=== PATIENT | female | born 1940 ===

== ENCOUNTER 2020-04-20 11:52 | Outpatient (REF) | payer MEDICARE, SELFPAY ==
[2020-04-20 13:00] LABS: MANUAL DIFF FLAG NO
[2020-04-20 13:04] LABS: Basophils Absolute Auto 0.1 X10*3/uL (0.0-0.2); Basophils Percent Auto 0.6 % (0-2); Eosinophils Absolute Auto 0.4 X10*3/uL (0.0-0.4); Eosinophils Percent Auto 4.9 % (0-4); Hematocrit 40.9 % (37-47); Hemoglobin 13.3 g/dl (12.0-16.0); Imm Gran Abs Auto 0.03 X10*3/uL (0.00-0.03); Imm Gran Pct Auto 0.3 % (0.0-0.4); Lymphocytes Absolute Auto 2.7 X10*3/uL (1.2-4.9); Lymphocytes Percent Auto 31.1 % (20-40); Mean Corpuscular HGB Conc 32.5 g/dl (31.0-35.0); Mean Corpuscular Hemoglobin 30.2 pg (27.0-33.0); Mean Corpuscular Volume 92.7 fL (80-98); Mean Platelet Volume 10.4 fL (9.4-12.3); Monocytes Absolute Auto 0.9 X10*3/uL (0.1-1.2); Monocytes Percent Auto 10.7 % (2-11); Neutrophils Absolute Auto 4.6 X10*3/uL (2.0-8.3); Neutrophils Percent Auto 52.4 % (45-73); Platelet Count 304 X10*3/uL (160-400); Red Blood Count 4.41 X10*6/uL (4.20-5.50); Red Cell Distribution Width 13.2 % (11.0-16.0); White Blood Count 8.7 X10*3/uL (4.8-10.8)
[2020-04-20 13:24] LABS: Glucose Urine UA NEG (NEG); Leukocyte Esterase Urine 2+ (NEG); Nitrite Urine NEG (NEG); Urine Blood TRACE (NEG); Urine Ketones NEG (NEG); Urine Protein NEG (NEG-TRACE)
[2020-04-20 13:34] LABS: Appearance Urine CLOUDY; Color Urine YELLOW
[2020-04-20 13:38] LABS: Calcium 9.3 mg/dL (8.4-10.2)
[2020-04-20 13:47] LABS: Alanine Aminotransferase 10 U/L (0-31); Alkaline Phosphatase 112 U/L (39-117); Anion Gap 12 (12-20); Aspartate Amino Transferase 18 U/L (5-31); Bilirubin Total 0.5 mg/dL (0.0-1.0); Blood Urea Nitrogen 10 mg/dL (9-16); Calcium 9.1 mg/dL (8.4-10.2); Carbon Dioxide 28 mmol/L (22-29); Chloride 100 mmol/L (96-108); Cholesterol 169 mg/dL; Estimated Glomerular Filt Rate > 60; Glucose Random 87 mg/dL (60-115); HDL Cholesterol 61 mg/dL; LDL Cholesterol Calculated 88 mg/dl; Potassium 4.3 mmol/l (3.3-5.1); Sodium 136 mmol/L (135-145); Total Protein 6.8 g/dL (6.5-8.0); Triglycerides 104 mg/dL
[2020-04-20 13:54] LABS: Thyroid Stimulating Hormone 0.78 mIU/mL (0.32-4.0); Vitamin D 25-OH Total 11.9 ng/mL (>30)
[2020-04-20 14:03] LABS: Bacteria Urine 2+ /LPF; RBC Urine 0-2 /HPF (0); Squamous Epithelial Cell Urine 2+ /LPF
[2020-04-21 07:58] LABS: Syphilis Screen Nonreactive (Nonreactive)
[2020-04-21 17:52] LABS: Calcium (PTHI) 10.1 mg/dL (8.6-10.4); PTHI 59 pg/mL (14-64)
== END 2020-04-20 11:53 | disposition home or self-care (01) ==
LOC: HO.LAB 11:52
PROVIDERS: Absent Provider Internal Medicine Endocrinology, Diabetes & Metabolism; PCP Internal Medicine; Visit Provider Internal Medicine
DX: R41.0 Disorientation, unspecified (principal); R73.02 Impaired glucose tolerance (oral); I10 Essential (primary) hypertension; E78.00 Pure hypercholesterolemia, unspecified; E83.52 Hypercalcemia
CPT/HCPCS: 36415; 80053; 80061; 81001; 82040; 82306; 82310; 83970; 84443; 85025; 86780

== ENCOUNTER 2020-04-21 11:20 | Outpatient (REF) | payer MEDICARE, SELFPAY ==
--- NOTE | 2020-04-21 11:20 | CT_ITS ---
EXAMINATION: CT HEAD WITHOUT CONTRAST CLINICAL INFORMATION: Disorientation. COMPARISON: None TECHNIQUE: Contiguous axial imaging was performed from the skull base to vertex without intravenous administration of contrast. This CT examination was performed using dose optimization techniques as appropriate, variously including the following: *Automated exposure control *Adjustment of mA and/or kV according to patient size (this includes techniques or standardized protocols for targeted exams where dose is matched to indication/reason for exam; i.e. extremities or head) *Use of iterative reconstruction technique DLP: 692 mGy-cm FINDINGS: There is no evidence of acute intracranial hemorrhage or territorial infarction. There is an extracranial right parietal calcified lesion along the inner table measuring 1.1 x 0.8 cm, most likely a calcified meningioma. There is a subtle 5 mm hypodense lesion along the inferior margin of the falx on axial image 18/2 and coronal image 69/7 likely small meningioma. No abnormal mass effect or midline shift is seen. Harley to white matter differentiation is well preserved. No extra-axial fluid collections are identified. The ventricles are normal in size. There is no abnormal attenuation within the brain parenchyma. The osseous structures and soft tissues are normal. The mastoid air cells and visualized portions of the paranasal sinuses are well aerated. CT/CT head/brain wo con IMPRESSION: No acute intracranial process seen. There is a right extra-axial parietal calcified meningioma and likely a small meningioma along the inferior margin of midline falx.
== END 2020-04-21 11:21 | disposition home or self-care (01) ==
LOC: HO.CT 11:20
PROVIDERS: PCP Internal Medicine; Visit Provider Internal Medicine
DX: R41.0 Disorientation, unspecified (principal)
CPT/HCPCS: 70450

== ENCOUNTER 2020-05-11 09:55 | Outpatient (REF) | payer MEDICARE, SELFPAY ==
--- NOTE | 2020-05-11 10:00 | MM_ITS ---
EXAMINATION: BONE DENSITOMETRY CLINICAL INDICATION: Hyperparathyroidism. COMPARISON: Previous BD dated 05/07/2018 and baseline BD dated 07/03/2008 (lumbar spine and left hip). This is the patient's baseline examination for the left forearm radius 33%. TECHNIQUE: Using a [employer] DXA System (software version: 13.1) manufactured by [employer], dual-energy x-ray absorptiometry was performed of the lumbar spine, left hip, and left forearm radius 33%. The images are of good technical quality. Summary results are attached. FINDINGS: AP SPINE L1-L4 (excluding L3): The data of L1-L4 has been changed to exclude the L3 vertebral body, because degenerative changes at this level may cause overestimation of lumbar spine density. Current: BMD 1.020 g/cm2, Z-score 0.3, T-score -1.2, osteopenia, 8.5% decrease from previous, 9.7% decrease from baseline (<5% change is not significant). Prior: BMD 1.115 g/cm2. Baseline: BMD 1.130 g/cm2. LEFT FEMUR, NECK: Current: BMD 0.808 g/cm2, Z-score 0.4, T-score -1.7, osteopenia. Prior: BMD 0.783 g/cm2. Baseline: BMD 0.866 g/cm2. LEFT FEMUR, TOTAL: Current: BMD 0.868 g/cm2, Z-score 0.8, T-score -1.1, osteopenia, 1.2% increase from previous, 14.7% decrease from baseline (<5% change is not significant). Prior: BMD 0.858 g/cm2. Baseline: BMD 1.017 g/cm2. LEFT FOREARM RADIUS 33%: BMD 0.600 g/cm2, Z-score -0.3, T-score -3.2, osteoporosis. Prior: Not previously measured. IDENTIFIED RISK FACTORS: Hyperparathyroidism, low calcium intake, thiazide, menopause. HISTORY OF FRACTURE: None listed. MEDICATIONS: Calcium supplements or multivitamin, vitamin D. MM/XR DEXA appendicular skeleton IMPRESSION: 1. DIAGNOSIS: Osteoporosis based on the lowest T-score value of -3.2 in the forearm radius 33% applying World Health Organization criteria. 2. 10-YEAR FRACTURE RISK PREDICTION, FRAX: Major osteoporotic fracture (clinical spine, forearm, hip or shoulder) 8.0%. Hip fracture 2.1%. 3. Treatment Recommendations: NOF guidelines recommend consideration for treatment in postmenopausal women and men age 50 and older presenting with the following: -A hip or vertebral (clinical or morphometric) fracture. -T-score less than or equal to -2.5 at the femoral neck or spine after appropriate evaluation to exclude secondary causes. -Low bone mass at the hip or spine and a 10-year fracture probability by FRAX of greater than or equal to 3% for hip fracture or greater than or equal to 20% for major osteoporotic fracture based on the [place] adapted WHO algorithm. 4. Other Recommendations: All treatment decisions require clinical judgment and consideration of individual patient factors, including patient preferences, comorbidities, previous drug use, risk factors not captured in the FRAX model (e.g. frailty, falls, vitamin D deficiency, increased bone turnover, interval significant decline in bone density) and possible under or overestimation of fracture risk by FRAX. Additional medical evaluation for secondary cause of low bone mineral density may be appropriate. FUTURE SCAN RECOMMENDATION: People with diagnosed cases of osteoporosis or at high risk for fracture should have regular bone mineral density tests. For patients eligible for Medicare, routine testing is allowed once every 2 years. The testing frequency can be increased to one year for patients who have rapidly progressing disease, those who are receiving or discontinuing medical therapy to restore bone mass, or have additional risk factors.
== END 2020-05-11 09:56 | disposition home or self-care (01) ==
LOC: HO.MAMMO 09:55
PROVIDERS: PCP Internal Medicine; Visit Provider Internal Medicine Endocrinology, Diabetes & Metabolism
DX: Z13.820 Encounter for screening for osteoporosis (principal); Z78.0 Asymptomatic menopausal state; M85.89 Other specified disorders of bone density and structure, multiple sites; E21.3 Hyperparathyroidism, unspecified; Z79.899 Other long term (current) drug therapy
CPT/HCPCS: 77081

== ENCOUNTER → 2020-05-17 12:58 | Outpatient (BNVA) | payer MEDICARE, SELFPAY | PROVIDERS: PCP Internal Medicine; Referring Provider Internal Medicine; Visit Provider Internal Medicine Endocrinology, Diabetes & Metabolism | DX: E21.3 Hyperparathyroidism, unspecified (principal); E04.2 Nontoxic multinodular goiter; M18.0 Bilateral primary osteoarthritis of first carpometacarpal joints; E55.9 Vitamin D deficiency, unspecified | CPT/HCPCS: 99212 ==

== ENCOUNTER 2020-06-28 12:02 | Outpatient (REF) | payer MEDICARE, SELFPAY | END 2020-06-28 12:03 | disposition home or self-care (01) | LOC: HO.LAB 12:02 | PROVIDERS: PCP Internal Medicine; Visit Provider Psychiatry & Neurology Neurology | DX: Z13.89 Encounter for screening for other disorder (principal) ==

== ENCOUNTER → 2020-08-16 08:47 | Outpatient (BNVA) | payer MEDICARE, SELFPAY | PROVIDERS: PCP Internal Medicine; Visit Provider Internal Medicine Endocrinology, Diabetes & Metabolism | DX: Z13.89 Encounter for screening for other disorder (principal) | CPT/HCPCS: 99212 ==

== ENCOUNTER 2020-08-16 09:07 | Outpatient (REF) | payer MEDICARE, SELFPAY ==
[2020-08-16 11:28] LABS: Calcium 9.4 mg/dL (8.4-10.2)
[2020-08-16 11:58] LABS: Free T4 (Free Thyroxine) 1.06 ng/dL (0.71-1.85); Thyroid Stimulating Hormone 0.83 uIU/mL (0.32-4.0); Vitamin D 25-OH Total 60.8 ng/mL (>30)
[2020-08-18 10:36] LABS: Calcium (PTHI) 9.7 mg/dL (8.6-10.4); PTHI 58 pg/mL (14-64)
[2020-08-20 20:41] LABS: N-Telopeptide 32 (see note); NTXCreaRU 182 mg/dL (20-275)
== END 2020-08-16 09:08 | disposition home or self-care (01) ==
LOC: HO.10HDL 09:07
PROVIDERS: Visit Provider Internal Medicine Endocrinology, Diabetes & Metabolism
DX: M81.0 Age-related osteoporosis without current pathological fracture (principal); E21.3 Hyperparathyroidism, unspecified; E55.9 Vitamin D deficiency, unspecified; E04.2 Nontoxic multinodular goiter; Z79.899 Other long term (current) drug therapy
CPT/HCPCS: 36415; 82040; 82306; 82310; 82523; 83970; 84439; 84443; 99212

== ENCOUNTER 2020-11-03 15:38 | Outpatient (REF) | payer MEDICARE, SELFPAY ==
--- NOTE | ~2020-11-03 | US_ITS ---
EXAMINATION: US VENOUS ULTRASOUND WITH DOPPLER LOWER EXTREMITY, BILATERAL CLINICAL INFORMATION: Swelling. COMPARISON: Previous right lower extremity venous ultrasound May 2013. TECHNIQUE: Ultrasound of the deep veins is performed from the hip to the calf with compression sonography and color and pulse Doppler assessment. Spectral analysis with color-flow imaging is performed. FINDINGS: There is normal venous compression and respiratory variation and augmented flow bilaterally. The visualized common femoral vein, superficial femoral vein, profunda femoral vein, popliteal vein, and the trifurcation region shows no evidence of deep venous thrombosis bilaterally. There is no significant popliteal fossa cyst. US/US venous duplex LE LT IMPRESSION: No DVT demonstrated in the bilateral lower extremities.
== END 2020-11-03 15:39 | disposition home or self-care (01) ==
LOC: HO.US 15:38
PROVIDERS: PCP Internal Medicine; Visit Provider Internal Medicine
DX: I82.402 Acute embolism and thrombosis of unspecified deep veins of left lower extremity (principal)
CPT/HCPCS: 93971

== ENCOUNTER 2020-12-23 15:01 | Outpatient (REF) | payer MEDICARE, SELFPAY ==
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
[2020-12-23 16:08] LABS: Hematocrit 40.9 % (37-47); Hemoglobin 13.5 g/dl (12.0-16.0); Mean Corpuscular Hemoglobin 30.6 pg (27.0-33.0); Mean Corpuscular Volume 92.7 fL (80-98); Mean Platelet Volume 10.3 fL (9.4-12.3); Platelet Count 292 X10*3/uL (160-400); Red Blood Count 4.41 X10*6/uL (4.20-5.50); Red Cell Distribution Width 13.4 % (11.0-16.0); White Blood Count 8.6 X10*3/uL (4.8-10.8)
[2020-12-23 16:19] LABS: Glucose Urine UA NEG (NEG); Leukocyte Esterase Urine 1+ (NEG); Nitrite Urine NEG (NEG); UACC Culture Trigger YES; Urine Blood NEG (NEG); Urine Ketones NEG (NEG); Urine Protein NEG (NEG-TRACE)
[2020-12-23 16:23] LABS: Appearance Urine CLEAR; Color Urine YELLOW
[2020-12-23 16:24] LABS: Anion Gap 12 (12-20); Blood Urea Nitrogen 15 mg/dL (9-16); Calcium 10.2 mg/dL (8.4-10.2); Carbon Dioxide 29 mmol/L (22-29); Chloride 100 mmol/L (96-108); Estimated Glomerular Filt Rate > 60; Glucose Random 112 mg/dL (60-115); Potassium 4.5 mmol/L (3.3-5.1); Sodium 136 mmol/L (135-145)
[2020-12-23 16:33] LABS: Bacteria Urine TRACE /LPF; Mucus Urine TRACE /LPF; RBC Urine 0-2 /HPF (0); Squamous Epithelial Cell Urine TRACE /LPF
== END 2020-12-23 15:02 | disposition home or self-care (01) ==
LOC: HO.XRAY 15:01
PROVIDERS: PCP Internal Medicine; Visit Provider Physician Assistant
DX: R07.81 Pleurodynia (principal); R10.9 Unspecified abdominal pain; R60.0 Localized edema; R30.0 Dysuria; I10 Essential (primary) hypertension
CPT/HCPCS: 36415; 71101; 74018; 80048; 81001; 81003; 85027; 87086

== ENCOUNTER → 2021-03-21 15:30 | Outpatient (BNVA) | payer MEDICARE, SELFPAY | PROVIDERS: PCP Internal Medicine; Visit Provider Hospitalist | DX: J98.4 Other disorders of lung (principal); J45.909 Unspecified asthma, uncomplicated; R93.89 Abnormal findings on diagnostic imaging of other specified body structures; R07.81 Pleurodynia; S22.31XD Fracture of one rib, right side, subsequent encounter for fracture with routine healing | CPT/HCPCS: 99202 ==

== ENCOUNTER 2021-09-22 09:50 | Outpatient (REF) | payer MEDICARE, SELFPAY ==
--- NOTE | ~2021-09-22 | CT_ITS ---
EXAMINATION: CT CHEST WITHOUT CONTRAST CLINICAL INFORMATION: Abnormal lung findings. Pleurodynia. COMPARISON: 12/23/2020 TECHNIQUE: Multidetector volumetric CT imaging of the chest was done. Axial MIP volume rendering provided. Sagittal and coronal reformatted images were obtained. This CT examination was performed using dose optimization techniques as appropriate, variously including the following: *Automated exposure control *Adjustment of mA and/or kV according to patient size (this includes techniques or standardized protocols for targeted exams where dose is matched to indication/reason for exam; i.e. extremities or head) *Use of iterative reconstruction technique DLP: 301 mGy-cm FINDINGS: SENIOR CYBER SECURITY ANALYST: Calcifications are seen in the soft tissues overlying the chest bilaterally. Right upper cartilage surgical clips. LUNGS: The central airways are patent. There is no dense consolidation. Mild elevation of the left hemidiaphragm. Minimal subpleural reticulation favors atelectasis. No pneumothorax. There is a left lower lobe 0.3 cm pulmonary nodule on series 5 image 190. Calcified granulomata are present bilaterally. MEDIASTINUM: Normal heart size. Coronary artery calcifications. No pericardial effusion. No mediastinal lymphadenopathy. PLEURA: There is no pleural effusion. No pleural mass or thickening. AXILLA: No lymphadenopathy. UPPER ABDOMEN: Cholecystectomy. No acute abnormality. OSSEOUS STRUCTURES: Degenerative changes of the spine. No acute or suspicious osseous abnormality. Radiopaque foreign bodies are seen associated with chronic right-sided rib fractures. Multiple radiopaque densities are seen in the back. Radiopaque densities are embedded in both scapulae. CT/CT chest wo con IMPRESSION: Chronic changes with multiple radiopaque foreign bodies present. This is associated with chronic healed fractures. Multiple calcified granulomata. 0.3 cm left lower lobe pulmonary nodule noted. According to the UPDATED 2017 Fleischner Society recommendations, the advised follow-up imaging for solid nodules < 6 mm is: LOW RISK PATIENT: No routine follow-up. HIGH RISK PATIENT: Optional CT at 12 months. Fleischner guidelines were followed.
--- NOTE | 2021-09-22 12:14 | ECG_ITS ---
Test Reason : R06.00 Blood Pressure : / mmHG Vent. Rate : 057 BPM Atrial Rate : 057 BPM P-R Int : 158 ms QRS Dur : 094 ms QT Int : 424 ms P-R-T Axes : 011 039 023 degrees QTc Int : 412 ms Sinus bradycardia Otherwise normal ECG When compared with ECG of 21-JUN-2019 19:38, No significant change was found Referred By: Bjorn Lay Electronically Signed By:JULIO CESAR SALGUERO MD
== END 2021-09-22 09:51 | disposition home or self-care (01) ==
LOC: HO.CT 09:50
PROVIDERS: PCP Internal Medicine; Visit Provider Hospitalist
DX: R93.89 Abnormal findings on diagnostic imaging of other specified body structures (principal); R06.00 Dyspnea, unspecified; R07.81 Pleurodynia; J98.4 Other disorders of lung; J45.20 Mild intermittent asthma, uncomplicated
CPT/HCPCS: 71250; 93005; 99212

== ENCOUNTER 2022-04-15 09:18 | Outpatient (REF) | payer MEDICARE, SELFPAY ==
[2022-04-15 09:42] LABS: MANUAL DIFF FLAG NO
[2022-04-15 10:38] LABS: Basophils Absolute Auto 0.1 X10*3/uL (0.0-0.2); Basophils Percent Auto 0.6 % (0-2); Eosinophils Absolute Auto 0.4 X10*3/uL (0.0-0.4); Eosinophils Percent Auto 4.7 % (0-4); Hematocrit 43.9 % (37.0-47.0); Hemoglobin 14.3 g/dl (12.0-16.0); Imm Gran Abs Auto 0.02 X10*3/uL (0.00-0.03); Imm Gran Pct Auto 0.2 % (0.0-0.4); Lymphocytes Absolute Auto 2.2 X10*3/uL (1.2-4.9); Lymphocytes Percent Auto 24.9 % (20-40); Mean Corpuscular HGB Conc 32.6 g/dl (31.0-35.0); Mean Corpuscular Hemoglobin 29.4 pg (27.0-33.0); Mean Corpuscular Volume 90.1 fL (80.0-98.0); Mean Platelet Volume 10.8 fL (9.4-12.3); Monocytes Absolute Auto 0.7 X10*3/uL (0.1-1.2); Monocytes Percent Auto 8.1 % (2-11); Neutrophils Absolute Auto 5.3 x10*3/uL (2.0-8.3); Neutrophils Percent Auto 61.5 % (45-73); Platelet Count 313 X10*3/uL (160-400); Red Blood Count 4.87 X10*6/uL (4.20-5.50); Red Cell Distribution Width 13.2 % (11.0-16.0); White Blood Count 8.7 X10*3/uL (4.8-10.8)
[2022-04-15 10:44] LABS: Estimated Average Glucose 114 mg/dL; Hemoglobin A1c % 5.6 %
[2022-04-15 11:07] LABS: Alanine Aminotransferase 9 U/L (0-31); Albumin Level 4.3 g/dL (3.5-5.0); Alkaline Phosphatase 86 U/L (39-117); Anion Gap 18 (12-20); Aspartate Amino Transferase 15 U/L (5-31); Bilirubin Total 0.9 mg/dL (0.0-1.0); Blood Urea Nitrogen 13 mg/dL (9-16); Calcium 10.5 mg/dL (8.4-10.2); Carbon Dioxide 26 mmol/L (22-29); Chloride 98 mmol/L (96-108); Cholesterol 195 mg/dL; Estimated Glomerular Filt Rate > 60; Glucose Random 102 mg/dL (60-115); HDL Cholesterol 57 mg/dL; LDL Cholesterol Calculated 119 mg/dl; Potassium 4.1 mmol/L (3.3-5.1); Sodium 138 mmol/L (135-145); Total Protein 7.2 g/dL (6.5-8.0); Triglycerides 95 mg/dL
[2022-04-15 11:23] LABS: Uric Acid 5.4 mg/dL (2.4-5.7)
[2022-04-15 11:29] LABS: Free T4 (Free Thyroxine) 0.99 ng/dL (0.71-1.85); Thyroid Stimulating Hormone 0.77 uIU/mL (0.32-4.0); Vitamin D 25-OH Total 92.2 ng/mL (>30)
[2022-04-15 11:39] LABS: Folate 12.1 ng/mL (> or = 4.0); Vitamin B12 429 pg/mL (200-900)
[2022-04-18 11:42] LABS: Calcium (PTHI) 10.6 mg/dL (8.6-10.4); PTHI 60 pg/mL (16-77)
== END 2022-04-15 09:19 | disposition home or self-care (01) ==
LOC: HO.LAB 09:18
PROVIDERS: PCP Internal Medicine; Visit Provider Internal Medicine
DX: I10 Essential (primary) hypertension (principal); E21.3 Hyperparathyroidism, unspecified; R73.02 Impaired glucose tolerance (oral); E78.00 Pure hypercholesterolemia, unspecified; M81.0 Age-related osteoporosis without current pathological fracture; E56.9 Vitamin deficiency, unspecified
CPT/HCPCS: 36415; 80053; 80061; 82306; 82607; 82746; 83036; 83970; 84439; 84443; 84550; 85025

== ENCOUNTER 2022-05-16 13:51 | Outpatient (REF) | payer MEDICARE, SELFPAY ==
--- NOTE | ~2022-05-16 | MM_ITS ---
EXAMINATION: MM SCREENING DIGITAL BREAST TOMOSYNTHESIS, BILATERAL CLINICAL INFORMATION: Screening. Asymptomatic. COMPARISON: Mammography: 07/14/2019, 07/10/2018, 06/20/2017 TECHNIQUE: Digital breast tomosynthesis is performed in both the craniocaudal and mediolateral oblique views along with computer-aided detection (CAD). Synthesized 2D images are generated from the tomosynthesis. FINDINGS: There are scattered areas of fibroglandular density (ACR BI-RADS breast composition Category b). There are no significant masses, abnormal calcifications, or other abnormalities. Dermal lesion overlies upper outer right breast, marked with dermal marker. There are scattered bilateral vascular calcifications. The axilla are unremarkable. No significant changes. MM/MM tomosynthesis screening BI IMPRESSION: No mammographic evidence of malignancy. ASSESSMENT: BI-RADS 2: Benign RECOMMENDATION: Routine annual mammography screening. This patient's information was entered into a reminder system with a target due date for their next mammogram.
--- NOTE | ~2022-05-16 | MM_ITS ---
EXAMINATION: BONE DENSITOMETRY CLINICAL INDICATION: Age-related osteoporosis without current pathological fracture. COMPARISON: Previous BD dated 05/11/2020 and baseline BD dated 07/03/2008. TECHNIQUE: Using a [employer] DXA System (software version: 13.1) manufactured by [employer], dual-energy x-ray absorptiometry was performed of the lumbar spine and left hip. The images are of good technical quality. Summary results are attached. FINDINGS: AP SPINE L1-L4 (excluding L3): The data of L1-L4 has been changed to exclude the L3 vertebral body, because degenerative changes at this level may cause overestimation of lumbar spine density. Current: BMD 1.090 g/cm2, Z-score 0.9, T-score -0.7, normal, 6.9% increase from previous, 3.5% decrease from baseline (<5% change is not significant). Prior: BMD 1.020 g/cm2. Baseline: BMD 1.130 g/cm2. LEFT FEMUR, NECK: Current: BMD 0.810 g/cm2, Z-score 0.5, T-score -1.6, osteopenia. Prior: BMD 0.808 g/cm2. Baseline: BMD 0.866 g/cm2. LEFT FEMUR, TOTAL: Current: BMD 0.887 g/cm2, Z-score 1.0, T-score -1.0, normal, 2.2% increase from previous, 12.8% decrease from baseline (<5% change is not significant). Prior: BMD 0.868 g/cm2. Baseline: BMD 1.017 g/cm2. IDENTIFIED RISK FACTORS: Osteoporosis, dementia, history of fracture (adult), thiazide, menopause. HISTORY OF FRACTURE: Wrist. MEDICATIONS: Bisphosphonates. MM/XR DEXA axial skeleton IMPRESSION: 1. DIAGNOSIS: Osteopenia based on the lowest T-score value of -1.6 in the femoral neck applying World Health Organization criteria. 2. 10-YEAR FRACTURE RISK PREDICTION, FRAX: Not performed in this patient on estrogen or bone building treatments. 3. Treatment Recommendations: NOF guidelines recommend consideration for treatment in postmenopausal women and men age 50 and older presenting with the following: -A hip or vertebral (clinical or morphometric) fracture. -T-score less than or equal to -2.5 at the femoral neck or spine after appropriate evaluation to exclude secondary causes. -Low bone mass at the hip or spine and a 10-year fracture probability by FRAX of greater than or equal to 3% for hip fracture or greater than or equal to 20% for major osteoporotic fracture based on the [place] adapted WHO algorithm. 4. Other Recommendations: All treatment decisions require clinical judgment and consideration of individual patient factors, including patient preferences, comorbidities, previous drug use, risk factors not captured in the FRAX model (e.g. frailty, falls, vitamin D deficiency, increased bone turnover, interval significant decline in bone density) and possible under or overestimation of fracture risk by FRAX. Additional medical evaluation for secondary cause of low bone mineral density may be appropriate. FUTURE SCAN RECOMMENDATION: People with diagnosed cases of osteoporosis or at high risk for fracture should have regular bone mineral density tests. For patients eligible for Medicare, routine testing is allowed once every 2 years. The testing frequency can be increased to one year for patients who have rapidly progressing disease, those who are receiving or discontinuing medical therapy to restore bone mass, or have additional risk factors.
== END 2022-05-16 13:52 | disposition home or self-care (01) ==
LOC: HO.MAMMO 13:51
PROVIDERS: PCP Internal Medicine; Visit Provider Internal Medicine
DX: Z12.31 Encounter for screening mammogram for malignant neoplasm of breast (principal); M81.0 Age-related osteoporosis without current pathological fracture
CPT/HCPCS: 77063; 77067; 77080

== ENCOUNTER 2022-07-12 15:54 | Outpatient (REF) | payer MEDICARE, SELFPAY ==
--- NOTE | ~2022-07-12 | XR_ITS ---
EXAMINATION: XR CHEST CLINICAL INFORMATION: Covid 19 COMPARISON: 12/23/2020 TECHNIQUE: 2 views of the chest were obtained. FINDINGS: Radiopaque densities in both axillary regions, unchanged. The lungs are well expanded. Mild blunting at the right costophrenic angle appears chronic. No consolidation. No effusion or edema. No pneumothorax. The cardiomediastinal silhouette is within normal limits. Degenerative changes throughout the spine. Upper abdominal surgical clips. XR/XR chest 2V IMPRESSION: No acute pulmonary finding. Chronic blunting of the right costophrenic angle.
== END 2022-07-12 15:55 | disposition home or self-care (01) ==
LOC: HO.XRAY 15:54
PROVIDERS: PCP Internal Medicine; Visit Provider Internal Medicine
DX: U07.1 COVID-19 (principal)
CPT/HCPCS: 71046

== ENCOUNTER 2022-09-14 13:01 | Outpatient (REF) | payer MEDICARE, SELFPAY ==
--- NOTE | ~2022-09-14 | CT_ITS ---
EXAMINATION: CT CHEST WITHOUT CONTRAST CLINICAL INFORMATION: Abnormal lung findings. Follow up. COMPARISON: CT chest 09/23/2021. TECHNIQUE: Multidetector volumetric CT imaging of the chest was done. Axial MIP volume rendering provided. Sagittal and coronal reformatted images were obtained. This CT examination was performed using dose optimization techniques as appropriate, variously including the following: *Automated exposure control *Adjustment of mA and/or kV according to patient size (this includes techniques or standardized protocols for targeted exams where dose is matched to indication/reason for exam; i.e. extremities or head) *Use of iterative reconstruction technique DLP: 301 mGy-cm FINDINGS: CERNER ANALYST: Well-expanded lungs with multiple radiopaque metallic foreign bodies along the posterior chest wall. LUNGS: The lungs are well-expanded without acute pneumonic process. There are punctate calcifications throughout both lungs. There is subpleural 5 mm thickening right lower lobe, stable. Reticular stranding is seen in the right upper lobe, likely atelectasis, similar to previous study. A 3 mm nodule left lower lobe axial image 276/8 is stable. There are new subpleural nodular densities seen in posterior right lower lobe. The largest nodule measures 1 cm on axial image 301/8. MEDIASTINUM: The thyroid lobes are symmetric and normal. The central trachea and the bronchi are widely patent. The heart size and the great vessels are normal caliber. No pericardial effusion seen. No abnormal sized mediastinal or hilar lymph nodes seen. CORONARY ARTERY CALCIFICATION: Mild coronary artery calcifications are present. PLEURA: There is no pleural effusion. No pleural mass or thickening. AXILLA: Small shotty lymph nodes are present bilaterally. There are multiple radiopaque metallic foreign bodies along the posterior chest wall. UPPER ABDOMEN: Visualized liver, spleen, pancreas, and bilateral adrenal glands are unremarkable. The gallbladder has been surgically removed. OSSEOUS STRUCTURES: No visible acute fractures or dislocation seen. There is mild spondylosis mid and lower dorsal spine. There are chronic right upper rib fractures likely related previous injury. CT/CT chest wo IV con IMPRESSION: Several new subpleural nodules right lower lobe, largest measuring 1 cm. No pleural effusion seen. Stable 3 mm nodule left lower lobe. Recommend 3-6 month follow up. Fleischner guidelines were followed.
== END 2022-09-14 13:02 | disposition home or self-care (01) ==
LOC: HO.CT 13:01
PROVIDERS: Visit Provider Hospitalist
DX: R91.8 Other nonspecific abnormal finding of lung field (principal)
CPT/HCPCS: 71250

== ENCOUNTER → 2022-11-09 09:42 | Outpatient (BNVA) | payer MEDICARE, SELFPAY | PROVIDERS: PCP Internal Medicine; Visit Provider Hospitalist ==

== ENCOUNTER 2022-11-09 12:51 | Outpatient (REF) | payer MEDICARE, SELFPAY ==
--- NOTE | 2022-11-09 13:45 | PFT_ITS ---
Forced vital capacity 92%, FEV1 90%. FEV1/FVC ratio is 71. [id number] is 81% and MVV 77%. Following bronchodilator therapy, there is a small, but significant improvement in FVC by 17% and [id number] by 25%. Normal lung volumes. The patient was not able to perform any adequate maneuvers for lung volumes or for DLCO. CONCLUSION: This spirometry findings are actually within normal range. However, some improvement in FVC and [id number] after bronchodilator therapy indicates that the patient may have some bronchospastic component. Clinical correlation is recommended. MD CLAUS Schmidt/CHARMAINE / [id number]
== END 2022-11-09 12:52 | disposition home or self-care (01) ==
LOC: HO.RESP 12:51
PROVIDERS: PCP Internal Medicine; Visit Provider Hospitalist
DX: R06.00 Dyspnea, unspecified (principal)
CPT/HCPCS: 94010; 99212

== ENCOUNTER 2022-11-21 10:14 | Outpatient (REF) | payer MEDICARE, SELFPAY ==
--- NOTE | ~2022-11-21 | PE_ITS ---
EXAMINATION: Fluorine-18 FDG PET/CT Scan CLINICAL INDICATION: Initial treatment management. New subpleural lung nodules at right lower lobe, the largest measuring [address] cm seen on recent [address] of the chest done on 09/14/2022. PROCEDURE: 63 minutes following the intravenous administration of 15.2 mCi of fluorine 18 FDG, images from the base of the skull to the mid thighs were obtained using a combined PET/CT scanner with CT scan based attenuation correction. No intravenous contrast was administered. Transverse, coronal, sagittal, and volume reconstruction projections were obtained. The patient's blood glucose as determined by a finger stick, was 110 mg/dl immediately prior to injection. The radiotracer was injected intravenously through right antecubital superficial vein, without any complications. Total CT exam dose-length product 671.75 mGy-cm * These CT images were obtained using dose optimization techniques as appropriate, variously including the following: Automated exposure control * Adjustment of mA and/or kV according to patient size (this includes techniques or standardized protocols for targeted exams where dose is matched to indication/reason for exam; i.e. extremities or head) * Use of iterative reconstruction technique COMPARISON: CT of the chest done on 09/14/2022. FINDINGS: NECK AND VISUALIZED HEAD: No FDG avid disease. THORAX: Subcentimeter right upper lobar lung nodule seen inferolaterally shows mild FDG avidity with SUV max of 1.6 (89/267). Sub-5 mm calcified nodule seen within the right upper lobe posteriorly at the level of the aortopulmonary window is not FDG avid. Pleural-based thickening associated with possible calcification and possibly old underlying rib fracture along the right upper lobe posterolaterally hemithorax is not FDG avid (73/267). Previously documented subpleural lung nodules at right lower lobe of the lung are not well-visualized and do not show FDG avidity in this region. There are no FDG avid mediastinal, hilar, axillary or internal mammary lymphadenopathy or pleural or pericardial effusion. ABDOMEN AND PELVIS: No FDG avid liver, splenic or adrenal disease. The gallbladder is surgically absent. The biliary tree is decompressed. No FDG avid pancreatic disease. Cortical renal cyst is noted at the inferior anterior cortex of the right kidney otherwise, both kidneys appear unremarkable. Bowel loops are decompressed. Small sliding hiatal hernia is noted. No FDG avid retroperitoneal, mesenteric, pelvic and/or groin lymphadenopathy. MUSCULOSKELETAL: Mild FDG avidity is noted overlying the left femoral head within the soft tissues, likely represent periarticular inflammatory changes. Small focal indeterminate FDG avidity without any underlying CT detectable abnormality is noted at L3 vertebral body to the left of the midline anteriorly with SUV max of 4.3 (137/267). VASCULAR: Calcific atherosclerotic disease of the aorta and its branches including coronary artery calcifications are noted. No evidence of aneurysm. SUV max OF MEDIASTINAL BLOOD POOL: 3.0 SUV max OF LIVER: 3.4 PET/PET CT fusion skull to thigh IMPRESSION: 1. The index millimeter left subpleural lung nodules with the largest measuring 1.0 cm seen on recent CT of the chest done on 09/14/2022 at right lower lobe of the lung posteromedially are not optimally visualized and do not show any FDG avidity in this region. Follow-up dedicated CT scan of the chest imaging to document resolution is recommended. 2. Subcentimeter right upper lobar lung nodule seen inferolaterally however shows mild FDG avidity with SUV max of 1.6. Given the small size of the nodule, having mild FDG avidity is considered significant. 3. No FDG avid mediastinal or hilar lymphadenopathy or pleural or pericardial effusion or FDG avid adrenal or liver or splenic disease. 4. Mild FDG avidity overlying the left femoral head within the soft tissues likely represent periarticular inflammatory changes. 5. Indeterminate mild FDG avidity within the L3 vertebral body to the left of the midline with SUV max of 4.3, without any CT correlate, not optimally characterized. Follow-up MRI with and without intravenous contrast may be considered for further clarification, if clinically appropriate. 6. Atherosclerotic coronary arterial calcific disease.
== END 2022-11-21 10:15 | disposition home or self-care (01) ==
LOC: HO.PET 10:14
PROVIDERS: PCP Internal Medicine; Visit Provider Hospitalist
DX: Z13.89 Encounter for screening for other disorder (principal)

== ENCOUNTER → 2022-12-26 15:11 | Outpatient (BNVA) | payer MEDICARE, SELFPAY | PROVIDERS: PCP Internal Medicine; Visit Provider Hospitalist | DX: J45.20 Mild intermittent asthma, uncomplicated (principal); R06.00 Dyspnea, unspecified; J98.4 Other disorders of lung; R91.8 Other nonspecific abnormal finding of lung field | CPT/HCPCS: 99212 ==

== ENCOUNTER 2022-12-26 15:25 | Outpatient (AMB) | payer MEDICARE, SELFPAY ==
[2022-12-26 15:08] VITALS: PULSE 64; BMI 36.4
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
== END 2022-12-26 15:32 | disposition home or self-care (01) ==
PROVIDERS: PCP Internal Medicine; Visit Provider Hospitalist
DX: R06.00 Dyspnea, unspecified (principal); J45.20 Mild intermittent asthma, uncomplicated; J98.4 Other disorders of lung; R91.8 Other nonspecific abnormal finding of lung field
CPT/HCPCS: 99214

== ENCOUNTER 2023-01-08 14:44 | Outpatient (AMB) | payer MEDICARE, SELFPAY ==
[2023-01-08 14:45] VITALS: BP 124/70; PULSE 65; O2SAT 98; BMI 36.8
--- NOTE | 2023-01-08 14:45 | MHC.PC.OV ---
Vital Signs 01/08/23 14:45 Height 4 ft 11 in Weight 182 lb 2 oz BMI 36.8 BP 124/70 Blood Pressure Location Lt brachial Position Sitting Pulse 65 Pulse Source Pulse Oximeter Pulse Oximetry (%) 98 Oxygen Delivery Method Room Air Intake Visit Reasons: HTN, hypercholesterol [employer] Integrator Required: No Accompanied by: Self / Same As Patient Allergies pollen extracts Allergy (Mild, Verified 01/08/23 14:46) Sneezing amlodipine Allergy (Unknown, Verified 01/08/23 14:46) Unknown house dust Allergy (Unknown, Verified 01/08/23 14:46) Unknown losartan Allergy (Unknown, Verified 01/08/23 14:46) Unknown prednisone Adverse Reaction (Intermediate, Verified 01/08/23 14:46) swelling LE Medication List - Last Reconciled 01/08/23 by Elliott Howell MD alendronate 70 mg PO QWEEK 90 days cholecalciferol (vitamin D3) 1,250 mcg PO QWEEK 90 days clotrimazole 1% 1 appl topical BID 4 weeks compress.stocking,knee,reg,lrg As directed donepezil 5 mg PO BEDTIME hydrochlorothiazide 25 mg PO QAM 30 days meloxicam 7.5 mg PO DAILY PRN pravastatin 20 mg PO DAILY umeclidinium-vilanterol 62.5-25 mcg/actuation (Anoro Ellipta) 1 inh inhalation DAILY Tobacco use date assessed: 01/08/23 Fall risk assessment: No Falls in past year Last assessed Fall Risk: 01/08/23 Dental Screening Dental Screen Date: 01/08/23 Did you have a dental visit in the last 12 months?: No Did you have a dental problem in the last 6 months where you did not have access to dental care?: No Was dental information given to patient?: No HPI HTN, hypercholesterol HPI Details 82-year-old obese female with cognitive impairment hypertension hypercholesterolemia last seen in August 2022. Patient had some pulmonary nodules and had a CT scan done. Bone density is up-to-date. Mammograms up-to-date. Patient follows up with Pulmonary patient follows up with Pulmonary having bilateral interstitial changes along with bronchitis and bronchiectasis. 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 Patient had a PET scan done under pulmonary The index millimeter left subpleural lung nodules with the largest measuring 1.0 cm seen on recent CT of the chest done on 09/14/2022 at right lower lobe of the lung posteromedially are not optimally visualized and do not show any FDG avidity in this region. Follow-up dedicated CT scan of the chest imaging to document resolution is recommended. 2. Subcentimeter right upper lobar lung nodule seen inferolaterally however shows mild FDG avidity with SUV max of 1.6. Given the small size of the nodule, having mild FDG avidity is considered significant. 3. No FDG avid mediastinal or hilar lymphadenopathy or pleural or pericardial effusion or FDG avid adrenal or liver or splenic disease. 4. Mild FDG avidity overlying the left femoral head within the soft tissues likely represent periarticular inflammatory changes. 5. Indeterminate mild FDG avidity within the L3 vertebral body to the left of the midline with SUV max of 4.3, without any CT correlate, not optimally characterized. Follow-up MRI with and without intravenous contrast may be considered for further clarification, if clinically appropriate. 6. Atherosclerotic coronary arterial calcific disease. MRI has been requested but has not heard anything from schedules. Patient has multiple elevated pigmented rashes on the forehead on right leg on right chest and would like to have dermatology to check. Meanwhile has some pruritic rash on the antecubital area and also in the groin. Otherwise no other complaints [facility] Medical History (Updated 01/08/23 @ 15:20 by Elliott Howell MD) Asthma Confusion Dyspnea Hypercholesterolemia Hyperparathyroidism Hypertension Impaired glucose tolerance Lower extremity edema Meningioma Non-toxic multinodular goiter Obesity (BMI 30-39.9) Osteoporosis Periorbital cellulitis of left eye Pulmonary nodules Pulmonary scarring Rib pain on right side Right flank pain Swelling of lower leg Thyroid nodule UTI (urinary tract infection) Surgical History History of cholecystectomy History of thyroid surgery Family History Father CVD (cardiovascular disease) Myocardial infarction Mother Diabetes Vaginal cancer Sister Diabetes Son In good health Daughter In good health Daughter In good health Social History Housing: Apartment Alcohol intake: never Patient Tobacco Use Status: Never used Tobacco e-Cigarette/Vaping Use: Never Used Second Hand Smoke Exposure: No service: No Current occupational status: retired Cognitive needs: No Hearing needs: No Vision needs: Yes (reading glasses) Questionnaire PHQ-9 Over the last 2 weeks, how often have you been bothered by any of the following problems? 1. Little interest or pleasure in doing things: not at all 2. Feeling down, depressed, or hopeless: not at all 3. Trouble falling or staying asleep, or sleeping too much: not at all 4. Feeling tired or having little energy: not at all 5. Poor appetite or overeating: not at all 6. Feeling bad about yourself - or that you are a failure or have let yourself or your family down: not at all 7. Trouble concentrating on things, such as reading the newspaper or watching television: not at all 8. Moving or speaking so slowly that other people could have noticed. Or the opposite - being so fidgety or restless that you have been moving around a lot more than usual: not at all 9. Thoughts that you would be better off or of hurting yourself in some way: not at all Total score: 0 Depression Screening Interpretation: Negative Source: Developed by Drs. Reed Park, Gifty Youngblood, Emre Vickers and colleagues, with an educational grace from [employer]. Thrive Questionnaire Date Thrive assessed: 01/08/23 I am a: Patient What is your living situation today?: I have a steady place to live Within the past 12 months, did the food you bought not last and you didn't have the money to get more?: Never true Within the past 12 months, did you worry whether your food would run out before you got money to buy more?: Never true Do you have trouble paying for medicines?: No Do you have trouble getting transportation to medical appointments?: No Do you have trouble paying your heating and electricity bill?: No Do you have trouble taking care of your child, family member or friend?: No Do you have trouble with day-to-day activities such as bathing, preparing meals, shopping, managing finances, etc.?: No Are you currently unemployed and looking for a job?: No Are you interested in more education?: No Please select the resources that you would like help with: None Currently or been in a relationship where the following occur: no concerns reported AUDIT C Alcohol Use Questionnaire (AUDIT-C) 1. How often do you have a drink containing alcohol?: Never 3. How often do you have six or more drinks on one occasion?: Never Total Score: 0 LISANDRO-7 AMB Questionnaire LISANDRO-7 Date LISANDRO - 7 assessed: 01/08/23 Feeling nervous, anxious, or on edge: 0 = Not at all Not being able to stop or control worryin = Not at all Worrying too much about different things: 0 = Not at all Trouble relaxin = Not at all Being so restless that it is hard to sit still: 0 = Not at all Becoming easily annoyed or irritable: 0 = Not at all Feeling afraid as if something awful might happen: 0 = Not at all Total LISANDRO-7 score (0-4 normal; 5-9 mild; 10-14 moderate; 15-21 severe): 0 Source: Developed by Drs. Reed Park, Gifty Youngblood, Emre Vickers and colleagues, with an educational grace from [employer]. Physical exam (Primary Care) Vital Signs: Last Vital Signs Pulse 65 01/08/23 14:45 BP 124/70 01/08/23 14:45 Pulse Ox 98 01/08/23 14:45 Oxygen Delivery Method Room Air 01/08/23 14:45 Care Plan Goal for BP management: Forehead has 1 cm elevated pigmented rash, right breast has 2 cm pigmented elevated rash, right leg anterior has the 1 cm elevated pigmented rash BMI result Body Mass Index 36.8 Tobacco/Smoking Status: Tobacco use Status Tobacco use date assessed 01/08/23 01/08/23 14:52 Patient Tobacco Use Status Never used Tobacco 01/08/23 14:52 e-Cigarette/Vaping Use Never Used 01/08/23 14:52 PHQ-9: PHQ-9 Score PHQ-9: Total score 0 01/08/23 14:52 Depression Screening Interpretation: Negative Thrive Assessment: Date of Thrive Assessment Date Thrive assessed 01/08/23 01/08/23 14:52 Currently or been in a relationship where the following occur: no concerns reported Const General: alert; No acute distress Eyes Conjunctivae: conjunctivae normal Resp Auscultation: clear to auscultation bilaterally Cardio Rate: regular rate Rhythm: regular rhythm GI Inspection: Yes normal to inspection Extrem General: Yes normal to inspection and No edema Assessment and Plan Assessment & Plan (1) Lesion of lumbar spine: Comment: December 2022 Indeterminate mild FDG avidity within the L3 vertebral body to the left of the midline with SUV max of 4.3, without any CT correlate, not optimally characterized. Follow-up MRI with and without intravenous contrast may be considered for further clarification, if clinically Code(s): M89.9 - Disorder of bone, unspecified Plan: Advised MRI (2) Pulmonary nodules: Comment: New 1 cm nodules in the RLL Code(s): R91.8 - Other nonspecific abnormal finding of lung field Plan: Patient continues to follow-up with Pulmonary (3) Impaired glucose tolerance: Code(s): R73.02 - Impaired glucose tolerance (oral) Plan: Decrease the amount of carbohydrate intake, pasta, bread, rice and potatoes are all sugar and that is aside from all the sweet stuff, remember that fruits are good but they are Sweet also. (4) Hypertension: Code(s): I10 - Essential (primary) hypertension Qualifiers: Hypertension type: essential hypertension Qualified Code(s): I10 - Essential (primary) hypertension Plan: Continue with blood pressure medication. Decrease salt intake and exercise continue with hydrochlorothiazide (5) Asthma: Comment: PFTs with mild COPD Code(s): J45.909 - Unspecified asthma, uncomplicated Qualifiers: Asthma severity: mild Asthma persistence: intermittent Asthma complication type: uncomplicated Qualified Code(s): J45.20 - Mild intermittent asthma, uncomplicated Plan: Continue with inhalers states has not used - advised to use (6) Obesity (BMI 30-39.9): Code(s): E66.9 - Obesity, unspecified Plan: Diet and exercise (7) Hypercholesterolemia: Code(s): E78.00 - Pure hypercholesterolemia, unspecified Plan: Avoid fried foods, chicken skin, eggs, butter margarine, pastries and meat. Be it pork or beef they have a lot of cholesterol continue with pravastatin 20 mg once a day (8) Multiple pigmented nevi: Code(s): D22.9 - Melanocytic nevi, unspecified (9) Tinea cruris: Code(s): B35.6 - Tinea cruris Orders: Orders Complete Blood Count Auto Diff Today R73.02 - Impaired glucose tolerance (oral) Comprehensive Met. Panel Today R73.02 - Impaired glucose tolerance (oral) Free T4 (Free Thyroxine) Today R73.02 - Impaired glucose tolerance (oral) Thyroid Stimulating Hormone Today R73.02 - Impaired glucose tolerance (oral) Vitamin B12 and Folate Today R73.02 - Impaired glucose tolerance (oral) Vitamin D 25-OH Total Today R73.02 - Impaired glucose tolerance (oral) Hemoglobin A1c Today R73.02 - Impaired glucose tolerance (oral) Lipid Panel Today E78.00 - Pure hypercholesterolemia, unspecified, R73.02 - Impaired glucose tolerance (oral) Referrals Dermatology Referral D22.9 - Melanocytic nevi, unspecified Medications: New clotrimazole 1% 1 appl topical BID 4 weeks 45 grams 0RF B35.6 - Tinea cruris Changed From meloxicam 7.5 mg PO DAILY 30 tabs 1RF M54.50 - Low back pain, unspecified To meloxicam 7.5 mg PO DAILY PRN M54.50 - Low back pain, unspecified Coding Level of Care Code Est Pt Level 4 (33771) Diagnoses Lesion of lumbar spine M89.9 Pulmonary nodules R91.8 Impaired glucose tolerance R73.02 Hypertension I10 Hypertension type: essential hypertension Asthma J45.20 Asthma severity: mild Asthma persistence: intermittent Asthma complication type: uncomplicated Obesity (BMI 30-39.9) E66.9 Hypercholesterolemia E78.00 Multiple pigmented nevi D22.9 Tinea cruris B35.6
== END 2023-01-08 15:26 | disposition home or self-care (01) ==
PROVIDERS: Visit Provider Internal Medicine
DX: I10 Essential (primary) hypertension (principal); J45.20 Mild intermittent asthma, uncomplicated; Z68.36 Body mass index [BMI] 36.0-36.9, adult; E66.9 Obesity, unspecified; M89.9 Disorder of bone, unspecified; R91.8 Other nonspecific abnormal finding of lung field; R73.02 Impaired glucose tolerance (oral); E78.00 Pure hypercholesterolemia, unspecified; D22.9 Melanocytic nevi, unspecified; B35.6 Tinea cruris
CPT/HCPCS: 99214

== ENCOUNTER 2023-02-21 16:22 | Outpatient (REF) | payer MEDICARE, SELFPAY ==
--- NOTE | ~2023-02-21 | MR_ITS ---
EXAMINATION: MR LUMBAR SPINE WITHOUT AND WITH CONTRAST CLINICAL INFORMATION: Low back pain COMPARISON: Lumbar radiographs 12/13/2015 TECHNIQUE: MRI of the lumbar spine was obtained using routine sequences before and after intravenous administration of 9 mL Gadavist. FINDINGS: Slight levocurvature at the thoracolumbar junction and minimal mid lumbar dextro curvature. Normal lumbar lordosis is preserved. Trace anterolisthesis at L3-L4 and L4-L5. Vertebral body heights are maintained. There is no suspicious enhancing osseous lesion. Multilevel disc desiccation with disc height loss most pronounced and moderate to severe at T12-L1 greater than T11-T12 and L2-L3. Several scattered endplate Schmorl's nodes, type I and II Modic endplate changes with associated endplate enhancement and type I Modic endplate changes most pronounced at T12-L1 and eccentric to the left along the L3 superior endplate. Multilevel anterior osteophytic spurring is seen.There are multilevel degenerative changes on a background of congenital spinal canal stenosis with level by level detail as follows: T11-T12: Annular disc bulge and moderate bilateral facet arthrosis with ligamentum flavum thickening. 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 Moderate bilateral neural foraminal stenosis with mass effect along the exiting T11 nerve roots. T12-L1: Annular disc bulge eccentric to the right with moderate right greater than left facet arthrosis. No spinal canal narrowing. Severe right neural foraminal stenosis with compression of the exiting right T12 nerve root without left neural foraminal stenosis. L1-L2: No spinal canal or neural foraminal stenosis. L2-L3: Disc osteophyte complex eccentric to the right and moderate bilateral facet arthrosis with ligamentum flavum thickening. Moderate spinal canal stenosis. Moderate right neural foraminal stenosis with impingement upon the exiting/extraforaminal right L2 nerve root and mild left neural foraminal stenosis. L3-L4: Annular disc bulge and advanced bilateral facet arthrosis with ligamentum flavum thickening and trace facet joint effusions. Severe spinal canal and subarticular zone stenosis with mass effect along the cauda equina including traversing bilateral L4 nerve roots. Mild to moderate right and moderate left neural foraminal stenosis with impingement upon the exiting left L3 nerve root. L4-L5: Slight posterior disc uncovering, advanced bilateral facet arthrosis and ligamentum flavum thickening. Moderate to severe spinal canal and subarticular zone stenosis with compression of the traversing bilateral L5 nerve roots. Mild left greater than right neural foraminal stenosis with contact on the exiting L4 nerve roots. L5-S1: Advanced bilateral facet arthrosis. No spinal canal stenosis. Moderate and mild right neural foraminal stenosis with contact along the exiting L5 nerve roots. The conus medullaris terminates at the level of L1-L2. The distal spinal cord and cauda equina nerve roots appear normal. No abnormal intramedullary or leptomeningeal enhancement.. No epidural fluid collection, hematoma, or mass. There is mild fatty atrophy of the paraspinal musculature. Simple appearing right renal cysts not requiring further imaging follow-up. The abdominal aorta is of normal contour and caliber. MR/MR lumbar spine wo/w con IMPRESSION: 1. 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 Findings to be called to the ordering clinician by a [facility] Phys[facility] Director Of Student Services. 2. There is also severe L3-L4 and moderate to severe L4-L5 spinal canal stenosis. Varying degrees of neural foraminal stenosis, worst at T12-L1 on the right with compression of the exiting right T12 nerve root and L3-L4 on the left at L3-L4 where there is moderate neural foraminal stenosis and impingement upon the exiting left L3 nerve root.
[2023-02-21] MEDS: gadobutroL 10 ML VIAL 9 ML IVPUSH (18:00)
== END 2023-02-21 16:23 | disposition home or self-care (01) ==
LOC: HO.MRI 16:22
PROVIDERS: PCP Internal Medicine; Visit Provider Internal Medicine
DX: M89.9 Disorder of bone, unspecified (principal)
CPT/HCPCS: 72158; A9585

== ENCOUNTER 2023-03-28 09:02 | Outpatient (AMB) | payer MEDICARE, SELFPAY ==
--- NOTE | 2023-03-28 09:13 | HO.SPINEOV ---
Intake Intake Visit Reasons: spinal stenosis Intake Note: Ms. Falcon is here today c/o low back pain. MRI done @ [facility] [place]. Ammonia Operator Required: Yes Ammonia Operator Name: Daughter Allergies pollen extracts Allergy (Mild, Verified 01/08/23 14:46) Sneezing amlodipine Allergy (Unknown, Verified 01/08/23 14:46) Unknown house dust Allergy (Unknown, Verified 01/08/23 14:46) Unknown losartan Allergy (Unknown, Verified 01/08/23 14:46) Unknown prednisone Adverse Reaction (Intermediate, Verified 01/08/23 14:46) swelling LE Assessment & Plan Assessment & Plan (1) Spinal stenosis, lumbar region without neurogenic claudication: Code(s): M48.061 - Spinal stenosis, lumbar region without neurogenic claudication Plan Dear colleague Thank you for referring Elisa Falcon to the office today with a chief complaint of back pain. HPI: This 82-year-old female is suffering from back pain with walking and standing. The symptoms started in August 2021. She can only stand for short periods of times or walk short distances before she has to sit down. She denies radiation down her legs. No numbness weakness or bowel or urinary problems. She is using meloxicam that helps. She is not interested in surgery. PMH: Asthma, hypertension, anxiety Medications: Atenolol, Seroquel, Xanax, ibuprofen, Advair Social history: Lives alone. Physical Exam: Pleasant female. She is not in agony. She is able to stand from a sitting position without difficulties. Straight leg raise is negative. No neurological deficits from motor sensation reflexes. Radiological Studies: MRI done at [facility] [place] shows T11-T12 spinal stenosis and lumbar stenosis at L3-4 and L4-5. Impression/Plan: This 82-year-old female is suffering from lumbar spinal stenosis without neurogenic claudication. She is not interested in surgery or injections. I advised her to continue meloxicam. She will return to my office if she considers surgery. Thank you for allowing me to participate in your patients care. total time spent was 50 minutes in counseling ,coordination of plan, personal review of imaging, surgical decision making and subsequent plan Gilberto Marina MD, PhD Spine Fellowship Trained Neurosurgeon Director, [facility] Coding Level of Care Code New Pt Level 4 (56929) Diagnoses Spinal stenosis, lumbar region without neurogenic claudication M48.065
== END 2023-03-28 09:49 | disposition home or self-care (01) ==
PROVIDERS: PCP Internal Medicine; Referring Provider Internal Medicine; Visit Provider Neurological Surgery
DX: M48.061 Spinal stenosis, lumbar region without neurogenic claudication (principal)
CPT/HCPCS: 99204

== ENCOUNTER → 2023-03-28 09:02 | Outpatient (BNVA) | payer MEDICARE, SELFPAY | PROVIDERS: PCP Internal Medicine; Referring Provider Internal Medicine; Visit Provider Neurological Surgery ==

== ENCOUNTER 2023-04-17 14:39 | Outpatient (AMB) | payer MEDICARE, SELFPAY ==
--- NOTE | 2023-04-17 14:48 | MHC.PC.OV ---
Vital Signs 04/17/23 15:01 Height 4 ft 11 in Weight 180 lb 8 oz BMI 36.5 BP 134/74 Blood Pressure Location Lt brachial Position Sitting Pulse 58 Pulse Source Pulse Oximeter Pulse Oximetry (%) 97 Oxygen Delivery Method Room Air Intake Visit Reasons: Hypercholesterolemia Intake Note: Patient is here to follow up on hypercholesterolemia. Complaint of right leg pain Preparation Plant Supervisor Required: No Information Interpreted: non-clinical & clinical Drug Safety Scientist: Present Accompanied by: Daughter Allergies pollen extracts Allergy (Mild, Verified 04/17/23 15:00) Sneezing amlodipine Allergy (Unknown, Verified 04/17/23 15:00) Unknown house dust Allergy (Unknown, Verified 04/17/23 15:00) Unknown losartan Allergy (Unknown, Verified 04/17/23 15:00) Unknown prednisone Adverse Reaction (Intermediate, Verified 04/17/23 15:00) swelling LE Medication List - Last Reconciled 04/17/23 by Elliott Howell MD alendronate 70 mg PO QWEEK 90 days cane As directed cholecalciferol (vitamin D3) 1,250 mcg PO QWEEK 90 days clotrimazole 1% 1 appl topical BID 4 weeks compress.stocking,knee,reg,lrg As directed diclofenac sodium 1% (Voltaren Arthritis Pain) 4 grams topical QID donepezil 5 mg PO BEDTIME hydrochlorothiazide 25 mg PO QAM 30 days lidocaine 5% 2 patches topical DAILY nystatin 1 appl topical BID nystatin 1 appl topical BID pravastatin 20 mg PO DAILY [rollator walker with a seat As directed] Shower Chair with back umeclidinium-vilanterol 62.5-25 mcg/actuation (Anoro Ellipta) 1 inh inhalation DAILY Tobacco use date assessed: 04/17/23 Fall risk assessment: No Falls in past year Last assessed Fall Risk: 04/17/23 Dental Screening Dental Screen Date: 04/17/23 Did you have a dental visit in the last 12 months?: Yes Did you have a dental problem in the last 6 months where you did not have access to dental care?: No Was dental information given to patient?: Patient has dentist HPI Hypercholesterolemia HPI Details 82-year-old obese female with a history of hypercholesterolemia asthma hypertension impaired glucose tolerance coming in for follow-up. Last seen in December 2022 noted had to have a lumbar spine lesion and has been advised MRI. 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 Findings to be called to the ordering clinician by a [facility] Physician Analyst Programmer. 2. There is also severe L3-L4 and moderate to severe L4-L5 spinal canal stenosis. Varying degrees of neural foraminal stenosis, worst at T12-L1 on the right with compression of the exiting right T12 nerve root and L3-L4 on the left at L3-L4 where there is moderate neural foraminal stenosis and impingement upon the exiting left L3 nerve root. Patient is here for follow-up. Patient was referred to the neurosurgeon but not interested in surgery [facility] Medical History (Updated 04/17/23 @ 15:23 by Elliott Howell MD) Pulmonary nodules Dyspnea Pulmonary scarring Rib pain on right side Lower extremity edema Right flank pain Swelling of lower leg Non-toxic multinodular goiter Osteoporosis Hyperparathyroidism Meningioma UTI (urinary tract infection) Confusion Impaired glucose tolerance Thyroid nodule Hypertension Asthma Obesity (BMI 30-39.9) Hypercholesterolemia Periorbital cellulitis of left eye Surgical History History of cholecystectomy History of thyroid surgery Family History Father CVD (cardiovascular disease) Myocardial infarction Mother Diabetes Vaginal cancer Sister Diabetes Son In good health Daughter In good health Daughter In good health Social History Housing: Apartment Alcohol intake: never Patient Tobacco Use Status: Never used Tobacco e-Cigarette/Vaping Use: Never Used Second Hand Smoke Exposure: No service: No Current occupational status: retired Cognitive needs: Yes (walker/cane) Hearing needs: No Vision needs: Yes (reading glasses) Questionnaire Thrive Questionnaire Date Thrive assessed: 01/08/23 LISANDRO-7 AMB Questionnaire LISANDRO-7 Date LISANDRO - 7 assessed: 01/08/23 Source: Developed by Drs. Reed Park, Gifty Youngblood, Emre Vickers and colleagues, with an educational grace from [employer]. Physical exam (Primary Care) Vital Signs: Last Vital Signs Pulse 58 04/17/23 15:01 BP 134/74 04/17/23 15:01 Pulse Ox 97 04/17/23 15:01 Oxygen Delivery Method Room Air 04/17/23 15:01 BMI result Body Mass Index 36.5 Tobacco/Smoking Status: Tobacco use Status Tobacco use date assessed 04/17/23 04/17/23 15:08 Patient Tobacco Use Status Never used Tobacco 04/17/23 14:48 e-Cigarette/Vaping Use Never Used 04/17/23 14:48 Exam shows no redness mild tenderness on medial knee area very mild swelling. Thrive Assessment: Date of Thrive Assessment Date Thrive assessed 01/08/23 04/17/23 14:48 Const General: alert; No acute distress Eyes Conjunctivae: conjunctivae normal Resp Auscultation: clear to auscultation bilaterally Cardio Rate: regular rate Rhythm: regular rhythm GI Inspection: Yes normal to inspection Extrem General: Yes normal to inspection and No edema Office Procedures Flu Questionnaire Does the patient have a severe egg allergy?: No Does the patient have severe life threatening allergies?: No Does the patient have a fever or illness today?: No Has the patient ever had Guillain-Glenwood Syndrome?: No Has the patient ever had any past reaction to a flu shot?: No Immunizations flu vacc [id number] 6mos up(PF) 60 mcg(15 mcgx4)/0.5 mL IM syringe Performing Provider: Elliott Howell MD Performing Location: [facility] Administered by: Agnes Menezes CMA on 04/17/23 15:11 Dose Route Admin Location Dispensed Lot Number Expiration Date NDC Head Host/Hostess 0.5 mL IM Left Deltoid 0.5 mL [id number] 12/16/23 [id number] iPrint VIS Given Date VIS Provided VIS Publication Date 04/17/23 Single Vaccine 21 Eligibility Eligibility Date Funding Source Not [facility] Eligible 04/17/23 Private Assessment and Plan Assessment & Plan (1) Lumbar spinal stenosis: Code(s): M48.061 - Spinal stenosis, lumbar region without neurogenic claudication Plan: Patient has met with the neurosurgeon and declined any procedures. (2) Impaired glucose tolerance: Code(s): R73.02 - Impaired glucose tolerance (oral) Plan: Decrease the amount of carbohydrate intake, pasta, bread, rice and potatoes are all sugar and that is aside from all the sweet stuff, remember that fruits are good but they are Sweet also. (3) Hypertension: Code(s): I10 - Essential (primary) hypertension Qualifiers: Hypertension type: essential hypertension Qualified Code(s): I10 - Essential (primary) hypertension Plan: Continue with blood pressure medication. Decrease salt intake and exercise (4) Asthma: Comment: PFTs with mild COPD Code(s): J45.909 - Unspecified asthma, uncomplicated Qualifiers: Asthma severity: mild Asthma persistence: intermittent Asthma complication type: uncomplicated Qualified Code(s): J45.20 - Mild intermittent asthma, uncomplicated Plan: Continue with the inhalers (5) Hypercholesterolemia: Code(s): E78.00 - Pure hypercholesterolemia, unspecified Plan: Avoid fried foods, chicken skin, eggs, butter margarine, pastries and meat. Be it pork or beef they have a lot of cholesterol LDL goal of less than 130 and triglyceride of less than 150 on pravastatin 20 mg once a day patient is reminded about the blood work. (6) Obesity (BMI 30-39.9): Code(s): E66.9 - Obesity, unspecified Plan: Diet and exercise (7) Pes anserine bursitis: Code(s): M70.50 - Other bursitis of knee, unspecified knee Orders: Orders Influenza [id number] Immunization Today Z23 - Encounter for immunization Medications: New lidocaine 5% leave on most painful area for up to 12 hrs 2 patches topical DAILY 60 ea 5RF M48.061 - Spinal stenosis, lumbar region without neurogenic claudication diclofenac sodium 1% (Voltaren Arthritis Pain) apply to single knee, ankle, foot; for foot includes sole/toes/top of foot 4 grams topical QID 100 grams 3RF M70.50 - Other bursitis of knee, unspecified knee Coding Level of Care Code Est Pt Level 4 (13604) Diagnoses Lumbar spinal stenosis M48.061 Impaired glucose tolerance R73.02 Essential hypertension I10 Hypertension type: essential hypertension Mild intermittent asthma without complication J45.20 Asthma severity: mild Asthma persistence: intermittent Asthma complication type: uncomplicated Hypercholesterolemia E78.00 Obesity (BMI 30-39.9) E66.9 Pes anserine bursitis M70.50
[2023-04-17 15:01] VITALS: BP 134/74; PULSE 58; O2SAT 97; BMI 36.5
== END 2023-04-17 16:22 | disposition home or self-care (01) ==
PROVIDERS: PCP Internal Medicine; Visit Provider Internal Medicine
DX: Z23 Encounter for immunization (principal); M48.061 Spinal stenosis, lumbar region without neurogenic claudication; R73.02 Impaired glucose tolerance (oral); I10 Essential (primary) hypertension; J45.20 Mild intermittent asthma, uncomplicated; E78.00 Pure hypercholesterolemia, unspecified; M70.50 Other bursitis of knee, unspecified knee
CPT/HCPCS: 90471; 90686; 99214

== ENCOUNTER 2023-05-04 12:50 | Outpatient (REF) | payer MEDICARE, SELFPAY ==
--- NOTE | ~2023-05-04 | XR_ITS ---
EXAMINATION: XR KNEE, RIGHT CLINICAL INFORMATION: Bursitis. COMPARISON: Radiographs dated 07/12/2018. TECHNIQUE: AP and lateral views of the right knee. FINDINGS: Bony alignment and mineralization are normal. The lateral and medial joint space compartments are well-maintained and show mild peripheral osteophyte formation. There is moderate articular surface irregularity of the lateral femoral condyle. There is marked narrowing of the patellofemoral compartment, with peripheral osteophyte formation. No fracture, dislocation or joint effusion is seen. There is no foreign body. XR/XR knee RT 2V IMPRESSION: 1. There is tricompartment osteoarthritic change of the right knee, most pronounced of the patellofemoral compartment, where it is marked. 2. No right knee fracture, dislocation or joint effusion is seen.
== END 2023-05-04 12:51 | disposition home or self-care (01) ==
LOC: HO.XRAY 12:50
PROVIDERS: PCP Internal Medicine; Visit Provider Internal Medicine
DX: M70.51 Other bursitis of knee, right knee (principal)
CPT/HCPCS: 73560

== ENCOUNTER 2023-05-17 11:22 | Outpatient (AMB) | payer MEDICARE, SELFPAY ==
[2023-05-17 11:26] VITALS: BP 120/50; PULSE 74; O2SAT 97; BMI 36.0
--- NOTE | 2023-05-17 11:26 | A.OFFPC_ITS ---
Vital Signs 3 05/17/23 11:26 Height 4 ft 11 in Weight 178 lb 8 oz BMI 36.0 BP 120/50 L Blood Pressure Location Lt brachial Position Sitting Pulse 74 Pulse Source Pulse Oximeter Pulse Oximetry (%) 97 Oxygen Delivery Method Room Air Intake Visit Reasons: Breast Rash & Skin Tag Intake Note: Pt is here for an ongoing breast rash been going on for over a year. Skin tag getting caught on clothing. Stitch Bonder Machine Operator Helper Required: Yes Stitch Bonder Machine Operator Helper Language: Box Toe Buffer Name: Rae Shah Information Interpreted: non-clinical & clinical Mobile Marketing Manager: Present Accompanied by: Daughter Allergies pollen extracts Allergy (Mild, Verified 05/17/23 11:26) Sneezing amlodipine Allergy (Unknown, Verified 05/17/23 11:26) Unknown house dust Allergy (Unknown, Verified 05/17/23 11:26) Unknown losartan Allergy (Unknown, Verified 05/17/23 11:26) Unknown prednisone Adverse Reaction (Intermediate, Verified 05/17/23 11:26) swelling LE Tobacco use date assessed: 04/17/23 Fall risk assessment: No Falls in past year Last assessed Fall Risk: 05/17/23 Dental Screening Dental Screen Date: 05/17/23 Did you have a dental visit in the last 12 months?: No Did you have a dental problem in the last 6 months where you did not have access to dental care?: No Was dental information given to patient?: No (Dentures ) HPI HPI Comments 2 History of Present Illness0 Details 82-year-old female past medical history significant for hypercholesteremia, asthma, hypertension, impaired glucose tolerance, hyperparathyroidism osteoporosis, lumbar spinal stenosis. Patient Dr. TRUONG presents today for right breast nevi that appears to be increasing in size, becoming raise and patient reports it is itchy. Patient also has firm nodular type skin tag noted to right hartley. States that it bothers her and always gets caught on her clothing and she would like this removed. Patients daughter accompanied her to this appointment for which she reports that patient has upcoming appointment scheduled with Dermatology later this month. Patient daughter advised to follow-up with Dermatology for further evaluation of right breast nevi as well as skin tag removal. [facility] Medical History (Updated 05/18/23 @ 07:42 by GARRISON Voss) Pulmonary nodules Dyspnea Pulmonary scarring Rib pain on right side Lower extremity edema Right flank pain Swelling of lower leg Non-toxic multinodular goiter Osteoporosis Hyperparathyroidism Meningioma UTI (urinary tract infection) Confusion Impaired glucose tolerance Thyroid nodule Hypertension Asthma Obesity (BMI 30-39.9) Hypercholesterolemia Periorbital cellulitis of left eye Surgical History History of cholecystectomy History of thyroid surgery Family History Father CVD (cardiovascular disease) Myocardial infarction Mother Diabetes Vaginal cancer Sister Diabetes Son In good health Daughter In good health Daughter In good health Social History Housing: Apartment Alcohol intake: never Patient Tobacco Use Status: Never used Tobacco e-Cigarette/Vaping Use: Never Used Second Hand Smoke Exposure: No service: No Current occupational status: retired Cognitive needs: Yes (walker/cane) Hearing needs: No Vision needs: Yes (reading glasses) Questionnaire Thrive Questionnaire Date Thrive assessed: 01/08/23 LISADNRO-7 AMB Questionnaire LISANDRO-7 Date LISANDRO - 7 assessed: 01/08/23 Source: Developed by Drs. Reed Park, Gifty Youngblood, Emre Vickers and colleagues, with an educational grace from [employer]. Review of Systems Const Denies chills, Denies fatigue, Denies fever(s) and Denies poor appetite Eyes Denies no additional complaints ENT Reports Normal hearing present Card Denies chest pain, Denies syncope, Denies rapid heart rate and Denies dyspnea Resp Denies cough and Denies dyspnea GI Denies change in stool character, Denies constipation, Denies diarrhea, Denies nausea and Denies vomiting Denies urinary frequency, Denies dysuria and Denies urinary urgency Neuro Details: increase mole to right breast, reports itching skin tag to right hartley Reports Normal hearing present, Denies confusion and Denies syncope Psych Denies confusion Endo Denies fatigue Physical exam (Primary Care) Vital Signs: Last Vital Signs Pulse 74 05/17/23 11:26 BP 120/50 L 05/17/23 11:26 Pulse Ox 97 05/17/23 11:26 Oxygen Delivery Method Room Air 05/17/23 11:26 BMI result Body Mass Index 36.0 Tobacco/Smoking Status: Tobacco use Status Tobacco use date assessed 04/17/23 05/17/23 11:28 Patient Tobacco Use Status Never used Tobacco 05/17/23 11:28 e-Cigarette/Vaping Use Never Used 05/17/23 11:28 Thrive Assessment: Date of Thrive Assessment Date Thrive assessed 01/08/23 05/17/23 11:28 Const General: No confusion Orientation/consciousness: No confusion HENMT Head: Yes normocephalic and Yes atraumatic Eyes Conjunctivae: conjunctivae normal Chest Chest palpation & inspection: normal inspection of the chest Resp Effort & Inspection: normal respiratory effort Auscultation: clear to auscultation bilaterally, no crackles, no rhonchi and no wheezes Cardio Rate: regular rate Rhythm: regular rhythm Heart sounds: S1 normal heart sound present and S2 normal heart sound present GI Inspection: Yes normal to inspection Skin Full body images: 2 1. aprox. 0.5 cm x 0.5cm annular, raised irregular textured Nevi to right breast. 2. Firm raised, skin color, nodular calcified appearing skin tag. Neuro General: No confusion Cranial nerves: Yes Normal hearing present Extrem General: No edema Assessment and Plan Assessment & Plan (1) Multiple pigmented nevi: Code(s): D22.9 - Melanocytic nevi, unspecified Plan: Patient advised to follow-up with Dermatology recall ending multiple pigmented nevi as well as her right breast nevi that appears to be growing in size and is itchy for possible removal or biopsy. (2) Skin tag: Code(s): L91.8 - Other hypertrophic disorders of the skin Plan: Patient advised to keep scheduled appointment with finger lift operator for skin ttag removal. Plan Keep scheduled follow-up with PCP or follow-up sooner if needed Coding Level of Care Code Est Pt Level 3 (21029) Diagnoses Multiple pigmented nevi D22.9 Skin tag L91.8
== END 2023-05-17 12:11 | disposition home or self-care (01) ==
PROVIDERS: PCP Internal Medicine; Visit Provider Nurse Practitioner Family
DX: D22.9 Melanocytic nevi, unspecified (principal); L91.8 Other hypertrophic disorders of the skin
CPT/HCPCS: 99213

== ENCOUNTER 2023-05-25 09:02 | Outpatient (AMB) | payer MEDICARE, SELFPAY ==
--- NOTE | 2023-05-25 09:08 | MHC.OFFVIS ---
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 No hx of injury or trauma. She states that her pain came about 4 months ago. Patient reports that her pain is affecting her daily activates like taking a shower, standing, walking and cleaning. Her pain is focused on top of her knee and it stays in that area. Tried and failed 3+ months of compound cream. Tried and failed 3+ months meloxicam. 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 The patient reports her pain began around 4 months ago, in 01/2023. She states her pain is affecting her daily activities like showering, standing, ambulating, and cleaning. She claims her pain is on the top of her knee and does not radiate. She confirms the use of compound cream and Meloxicam for 3 months with no relief. She reports she has been resting the right knee and this has helped her with some relief. She denies a history of injury or trauma. She is currently ambulating with a walker that was supplied by her daughter. She states the walker has helped some. [facility] Medical History (Updated 05/25/23 @ 09:42 by Francheska Baldwin) Pulmonary nodules Dyspnea Pulmonary scarring Rib pain on right side Lower extremity edema Right flank pain Swelling of lower leg Non-toxic multinodular goiter Osteoporosis Hyperparathyroidism Meningioma UTI (urinary tract infection) Confusion Impaired glucose tolerance Thyroid nodule Hypertension Asthma Obesity (BMI 30-39.9) Hypercholesterolemia Periorbital cellulitis of left eye Surgical History History of cholecystectomy History of thyroid surgery Family History Father CVD (cardiovascular disease) Myocardial infarction Mother Diabetes Vaginal cancer Sister Diabetes Son In good health Daughter In good health Daughter In good health Social History Housing: Apartment Alcohol intake: never Patient Tobacco Use Status: Never used Tobacco e-Cigarette/Vaping Use: Never Used Second Hand Smoke Exposure: No service: No Current occupational status: retired Cognitive needs: Yes (walker/cane) Hearing needs: No Vision needs: Yes (reading glasses) Review of Systems Const All systems reviewed & are unremarkable except as noted in HPI and below Physical Exam Vital Signs: BMI result Body Mass Index 35.9 Const General: cooperative and no acute distress Orientation/consciousness: patient oriented x3 Resp Effort & Inspection: normal respiratory effort and able to speak in complete sentences Cardio Peripheral pulses: Peripheral pulses 2+ throughout Skin General skin exam: no rashes or lesions noted Neuro General: patient oriented x3 Extrem Other: Right knee: Normal to inspection. No ecchymosis, erythema, or joint effusion. No tenderness to palpation to the medial or lateral joint lines. ROM is 0-100 degrees. Crepitus felt with ROM. NVI. Office Procedures Joint Injection/Drain Joint Injection/Drain Primary Site: right knee Prep: site was prepped using aseptic technique, ethochloride spray was applied and injection warnings given Injected: 80 mg of, DepoMedrol, with 8 mL of (2% plain lido ) and in the joint Approach Used: anterolateral Procedure: The patient tolerated the procedure well, but had some pain with the injection and there was some relief with the local anesthesia Coding 64289 - Large joint Procedure code (CPT) selection complete Assessment & Plan Assessment & Plan (1) Osteoarthritis of right knee: Code(s): M17.11 - Unilateral primary osteoarthritis, right knee Qualifiers: Osteoarthritis type: unspecified Qualified Code(s): M17.11 - Unilateral primary osteoarthritis, right knee Plan Ms. Falcon is an 82-year-old female, who is Guyanese speaking, presents in the office today with her daughter who is translating for her, as a new patient for an evaluation of right knee pain. The patient reports her pain began around 4 months ago, in 01/2023. She states her pain is affecting her daily activities like showering, standing, ambulating, and cleaning. She claims her pain is on the top of her knee and does not radiate. She confirms the use of compound cream and Meloxicam for 3 months with no relief. She reports she has been resting the right knee and this has helped her with some relief. She denies a history of injury or trauma. She is currently ambulating with a walker that was supplied by her daughter. She states the walker has helped some. The patient was offered a cortisone injection in the right knee with 80 mg of DepoMedrol. The patient was explained the risk, benefits, and alternatives to receiving this injection. After receiving consent for the injection, the patient had the procedure done while in office today. The patient tolerated the procedure well with no complications. Follow up will be PRN, or sooner if needed. X-rays of the right knee which were obtained while in the office today and were reviewed by me, Sophia Vuong PA-C, revealed severe osteoarthritis. X-rays of the right knee, obtained on 05/04/2023, revealed: 1. There is tricompartment osteoarthritic change of the right knee, most pronounced of the patellofemoral compartment, where it is marked. 2. No right knee fracture, dislocation or joint effusion is seen. Orders: Orders XR knee standing BI Today M25.569 - Pain in unspecified knee XR knee RT 1V Today M25.569 - Pain in unspecified knee Patient Instructions: Scribed for Sophia Vuong PA-C by Francheska Baldwin medical services assistant, on 05/25/2023 at 9:04 am, EST. Coding Level of Care Code New Pt Level 4 (91385) Diagnoses Osteoarthritis of right knee, unspecified osteoarthritis type M17.11 Osteoarthritis type: unspecified CPT Codes Coding - 09095 Large joint: 70355 - Large joint ([id number])
[2023-05-25 09:24] VITALS: BMI 35.9
== END 2023-05-25 10:31 | disposition home or self-care (01) ==
PROVIDERS: PCP Internal Medicine; Visit Provider Physician Assistant
DX: M17.11 Unilateral primary osteoarthritis, right knee (principal)
CPT/HCPCS: 20610; 99204

== ENCOUNTER 2023-05-25 10:59 | Outpatient (REF) | payer MEDICARE, SELFPAY ==
--- NOTE | ~2023-05-25 | XR_ITS ---
EXAMINATION: XR KNEE AP STANDING CLINICAL INFORMATION: Bilateral knee pain COMPARISON: Right knee x-ray on 05/04/2023, left knee x-ray on 02/16/2015 TECHNIQUE: AP bilateral standing view of the knees was obtained. FINDINGS: BONES: Bony structures are intact. Persistent prominent bony spur is seen projecting from the lateral border of right patella. There is no focal bone destruction or periosteal reaction seen. JOINTS: There is persistent marked loss of medial compartment right and left tibiofemoral joint spaces. There could be mild genu varus deformity especially in the left knee. SOFT TISSUE: Soft tissue is normal. No radiopaque foreign body or abnormal air collection is seen. XR/XR knee standing BI IMPRESSION: 1. Persistent advanced bilateral medial compartment right and left tibiofemoral joint degenerative arthritis. 2. There could be mild genu varus deformity especially in the left knee. 3. Unchanged lateral right patellar bony spur.
--- NOTE | ~2023-05-25 | XR_ITS ---
EXAMINATION: RIGHT KNEE X-RAY CLINICAL INFORMATION: Pain COMPARISON: Same day standing AP radiographs of the bilateral knees and right knee x-rays 05/04/2023 TECHNIQUE: Single patellar sunrise view of the right knee. FINDINGS: No patellar fracture. Prominent osteophyte projects over the lateral border of the patella. There is mild narrowing of the patellofemoral joint space. No localized soft tissue swelling. XR/XR knee RT 1V IMPRESSION: Degenerative changes of the right patella without fracture.
== END 2023-05-25 11:00 | disposition home or self-care (01) ==
LOC: HO.HOSX 10:59
PROVIDERS: Visit Provider Physician Assistant
DX: M17.11 Unilateral primary osteoarthritis, right knee (principal)
CPT/HCPCS: 20610; 73560; 73565; 99202; J1040

== ENCOUNTER 2023-06-06 09:59 | Outpatient (REF) | payer MEDICARE, SELFPAY | END 2023-06-06 10:00 | disposition home or self-care (01) | LOC: HO.CT 09:59 | PROVIDERS: PCP Internal Medicine; Visit Provider Hospitalist | DX: R91.8 Other nonspecific abnormal finding of lung field (principal) | CPT/HCPCS: 71250 ==

== ENCOUNTER 2023-07-02 14:28 | Outpatient (AMB) | payer MEDICARE, SELFPAY ==
[2023-07-02 14:36] VITALS: BP 134/60; PULSE 59; O2SAT 98; BMI 38.4
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
== END 2023-07-02 15:13 | disposition home or self-care (01) ==
PROVIDERS: PCP Internal Medicine; Visit Provider Hospitalist
DX: R06.00 Dyspnea, unspecified (principal); J45.20 Mild intermittent asthma, uncomplicated; J98.4 Other disorders of lung; R91.8 Other nonspecific abnormal finding of lung field
CPT/HCPCS: 99214

== ENCOUNTER → 2023-07-02 14:28 | Outpatient (BNVA) | payer MEDICARE, SELFPAY | PROVIDERS: PCP Internal Medicine; Visit Provider Hospitalist | DX: J45.20 Mild intermittent asthma, uncomplicated (principal); J98.4 Other disorders of lung; R06.00 Dyspnea, unspecified; R91.8 Other nonspecific abnormal finding of lung field | CPT/HCPCS: 99212 ==

== ENCOUNTER 2023-07-23 15:27 | Outpatient (AMB) | payer MEDICARE, MEDICAID, SELFPAY ==
[2023-07-23 15:29] VITALS: BP 160/80; PULSE 79; O2SAT 98; BMI 36.1
--- NOTE | 2023-07-23 15:29 | A.OFFPC_ITS ---
Vital Signs 07/23/23 15:29 Height 4 ft 11 in Weight 179 lb BMI 36.1 BP 160/80 H Blood Pressure Location Lt brachial Position Sitting Pulse 79 Pulse Source Pulse Oximeter Pulse Oximetry (%) 98 Oxygen Delivery Method Room Air Intake Visit Reasons: lumbar spinal stenosis, R knee pain Car Pre Cooler Required: Yes Behavioral Health Therapist: Present Allergies pollen extracts Allergy (Mild, Verified 07/23/23 15:30) Sneezing amlodipine Allergy (Unknown, Verified 07/23/23 15:30) Unknown house dust Allergy (Unknown, Verified 07/23/23 15:30) Unknown losartan Allergy (Unknown, Verified 07/23/23 15:30) Unknown prednisone Adverse Reaction (Intermediate, Verified 07/23/23 15:30) swelling LE Medication List - Last Reconciled 07/23/23 by Elliott Howell MD albuterol sulfate 90 mcg/actuation (Ventolin HFA) 2 puffs inhalation Q6H PRN alendronate 70 mg PO QWEEK 90 days cane As directed cholecalciferol (vitamin D3) 1,250 mcg PO QWEEK 90 days clotrimazole 1% 1 appl topical BID 4 weeks compress.stocking,knee,reg,lrg As directed diclofenac sodium 1% (Voltaren Arthritis Pain) 4 grams topical QID donepezil 5 mg PO BEDTIME hydrochlorothiazide 25 mg PO QAM 30 days lidocaine 5% 2 patches topical DAILY nystatin 1 appl topical BID nystatin 1 appl topical BID pravastatin 20 mg PO DAILY [rollator walker with a seat As directed] Shower Chair with back umeclidinium-vilanterol 62.5-25 mcg/actuation (Anoro Ellipta) 1 inh inhalation DAILY Tobacco use date assessed: 07/23/23 Fall risk assessment: No Falls in past year Last assessed Fall Risk: 07/23/23 Dental Screening Dental Screen Date: 07/23/23 Did you have a dental visit in the last 12 months?: Yes Did you have a dental problem in the last 6 months where you did not have access to dental care?: No Was dental information given to patient?: Patient has dentist HPI lumbar spinal stenosis, R knee pain HPI Details 82-year-old obese female with multiple m edical problems impaired glucose tolerance hypertension hypercholesterolemia asthma osteoporosis with hyperparathyroidism lumbar spinal stenosis coming in for follow-up. Last seen in April 2023 and was referred to dermatology. Patient's bone density is up-to-date April 2022 patient follows up with Pulmonary June 2023 PFT done with mild COPD pulmonary nodule stable no additional CT scan needed continue with Anoro and albuterol.. Patient also follows up with orthopedics for her right knee and had injection on the right knee [facility] Medical History (Updated 07/03/23 @ 18:17 by Elliott Howell MD) Pulmonary nodules Dyspnea Pulmonary scarring Rib pain on right side Lower extremity edema Right flank pain Swelling of lower leg Non-toxic multinodular goiter Osteoporosis Hyperparathyroidism Meningioma UTI (urinary tract infection) Confusion Impaired glucose tolerance Thyroid nodule Hypertension Asthma Obesity (BMI 30-39.9) Hypercholesterolemia Periorbital cellulitis of left eye Surgical History History of cholecystectomy History of thyroid surgery Family History Father CVD (cardiovascular disease) Myocardial infarction Mother Diabetes Vaginal cancer Sister Diabetes Son In good health Daughter In good health Daughter In good health Social History Housing: Apartment Alcohol intake: never Patient Tobacco Use Status: Never used Tobacco e-Cigarette/Vaping Use: Never Used Second Hand Smoke Exposure: No service: No Current occupational status: retired Cognitive needs: Yes (walker/cane) Hearing needs: No Vision needs: Yes (reading glasses) Questionnaire PHQ-9 Over the last 2 weeks, how often have you been bothered by any of the following problems? 1. Little interest or pleasure in doing things: not at all 2. Feeling down, depressed, or hopeless: not at all 3. Trouble falling or staying asleep, or sleeping too much: not at all 4. Feeling tired or having little energy: not at all 5. Poor appetite or overeating: not at all 6. Feeling bad about yourself - or that you are a failure or have let yourself or your family down: not at all 7. Trouble concentrating on things, such as reading the newspaper or watching television: not at all 8. Moving or speaking so slowly that other people could have noticed. Or the opposite - being so fidgety or restless that you have been moving around a lot more than usual: not at all 9. Thoughts that you would be better off or of hurting yourself in some way: not at all Total score: 0 Depression Screening Interpretation: Negative Depression Screening Done: Yes Source: Developed by Drs. Reed Park, Gifty Youngblood, Emre Vickers and colleagues, with an educational grace from [employer]. Thrive Questionnaire Date Thrive assessed: 07/23/23 I am a: Patient What is your living situation today?: I have a steady place to live Within the past 12 months, did the food you bought not last and you didn't have the money to get more?: Never true Within the past 12 months, did you worry whether your food would run out before you got money to buy more?: Never true Do you have trouble paying for medicines?: No Do you have trouble getting transportation to medical appointments?: No Do you have trouble paying your heating and electricity bill?: No Do you have trouble taking care of your child, family member or friend?: No Do you have trouble with day-to-day activities such as bathing, preparing meals, shopping, managing finances, etc.?: No Are you currently unemployed and looking for a job?: No Are you interested in more education?: No Please select the resources that you would like help with: None THRIVE Score: 0 AUDIT C Alcohol Use Questionnaire (AUDIT-C) 1. How often do you have a drink containing alcohol?: Never 3. How often do you have six or more drinks on one occasion?: Never Total Score: 0 LISANDRO-7 AMB Questionnaire LISANDRO-7 Date LISANDRO - 7 assessed: 07/23/23 Feeling nervous, anxious, or on edge: 0 = Not at all Not being able to stop or control worryin = Not at all Worrying too much about different things: 0 = Not at all Trouble relaxin = Not at all Being so restless that it is hard to sit still: 0 = Not at all Becoming easily annoyed or irritable: 0 = Not at all Feeling afraid as if something awful might happen: 0 = Not at all Total LISANDRO-7 score (0-4 normal; 5-9 mild; 10-14 moderate; 15-21 severe): 0 Source: Developed by Nikolai Meyeret [employer], Emre Vickers and colleagues, with an educational grace from [employer]. Physical exam (Primary Care) Vital Signs: Last Vital Signs Pulse 79 07/23/23 15:29 BP 160/80 H 07/23/23 15:29 Pulse Ox 98 07/23/23 15:29 Oxygen Delivery Method Room Air 07/23/23 15:29 BMI result Body Mass Index 36.1 Tobacco/Smoking Status: Tobacco use Status Tobacco use date assessed 07/23/23 07/23/23 15:31 Patient Tobacco Use Status Never used Tobacco 07/23/23 15:31 e-Cigarette/Vaping Use Never Used 07/23/23 15:31 PHQ-9: PHQ-9 Score PHQ-9: Total score 0 07/23/23 15:39 Depression Screening Interpretation: Negative Thrive Assessment: Date of Thrive Assessment Date Thrive assessed 07/23/23 07/23/23 15:31 Const General: alert; No acute distress Eyes Conjunctivae: conjunctivae normal Resp Auscultation: clear to auscultation bilaterally Cardio Rate: regular rate Rhythm: regular rhythm GI Inspection: Yes normal to inspection Extrem General: Yes normal to inspection and No edema Assessment and Plan Assessment & Plan (1) Obesity (BMI 30-39.9): Code(s): E66.9 - Obesity, unspecified Plan: Diet and exercise (2) Hypercholesterolemia: Code(s): E78.00 - Pure hypercholesterolemia, unspecified Plan: Avoid fried foods, chicken skin, eggs, butter margarine, pastries and meat. Be it pork or beef they have a lot of cholesterol LDL goal of less than 130 and triglyceride of less than 150. Patient on pravastatin 20 mg once a day will need blood work (3) Asthma: Comment: PFTs with mild COPD Code(s): J45.909 - Unspecified asthma, uncomplicated Qualifiers: Asthma severity: mild Asthma persistence: intermittent Asthma complication type: uncomplicated Qualified Code(s): J45.20 - Mild intermittent asthma, uncomplicated Plan: Patient follows up with Pulmonary and has been given albuterol and Anoro (4) Hypertension: Code(s): I10 - Essential (primary) hypertension Qualifiers: Hypertension type: essential hypertension Qualified Code(s): I10 - Essential (primary) hypertension Plan: Continue with blood pressure medication. Decrease salt intake and exercise takes hydrochlorothiazide 25 mg once a day (5) Impaired glucose tolerance: Code(s): R73.02 - Impaired glucose tolerance (oral) Plan: Decrease the amount of carbohydrate intake, pasta, bread, rice and potatoes are all sugar and that is aside from all the sweet stuff, remember that fruits are good but they are Sweet also. (6) Hyperparathyroidism: Comment: Patient has met with endocrinology and will continue to monitor as this is mild hyperparathyroidism Code(s): E21.3 - Hyperparathyroidism, unspecified Plan: Continue to monitor (7) Lumbar spinal stenosis: Code(s): M48.061 - Spinal stenosis, lumbar region without neurogenic claudication Plan: Keep active (8) Osteoarthritis of right knee: Code(s): M17.11 - Unilateral primary osteoarthritis, right knee Qualifiers: Osteoarthritis type: unspecified Qualified Code(s): M17.11 - Unilateral primary osteoarthritis, right knee Plan: Patient has seen Orthopedics and had injections done. Medications: New albuterol sulfate 90 mcg/actuation (Ventolin HFA) 2 puffs inhalation Q6H PRN 8.5 grams 0RF shortness of breath or wheezing J45.20 - Mild intermittent asthma, uncomplicated Coding Level of Care Code Est Pt Level 4 (94459) Diagnoses Obesity (BMI 30-39.9) E66.9 Hypercholesterolemia E78.00 Mild intermittent asthma without complication J45.20 Asthma severity: mild Asthma persistence: intermittent Asthma complication type: uncomplicated Essential hypertension I10 Hypertension type: essential hypertension Impaired glucose tolerance R73.02 Hyperparathyroidism E21.3 Lumbar spinal stenosis M48.061 Osteoarthritis of right knee, unspecified osteoarthritis type M17.11 Osteoarthritis type: unspecified
== END 2023-07-23 15:59 | disposition home or self-care (01) ==
PROVIDERS: PCP Internal Medicine; Visit Provider Internal Medicine
DX: E21.3 Hyperparathyroidism, unspecified (principal); E66.9 Obesity, unspecified; Z68.36 Body mass index [BMI] 36.0-36.9, adult; E78.00 Pure hypercholesterolemia, unspecified; J45.20 Mild intermittent asthma, uncomplicated; I10 Essential (primary) hypertension; R73.02 Impaired glucose tolerance (oral); M48.061 Spinal stenosis, lumbar region without neurogenic claudication; M17.11 Unilateral primary osteoarthritis, right knee
CPT/HCPCS: 99214

== ENCOUNTER 2023-07-28 09:50 | Outpatient (REF) | payer MEDICARE, SELFPAY ==
[2023-07-28 10:11] LABS: MANUAL DIFF FLAG NO
[2023-07-28 10:35] LABS: Basophils Absolute Auto 0.1 X10*3/uL (0.0-0.2); Basophils Percent Auto 0.6 % (0-2); Eosinophils Absolute Auto 0.5 X10*3/uL (0.0-0.4); Eosinophils Percent Auto 5.7 % (0-4); Hemoglobin 14.2 g/dl (12.0-16.0); Imm Gran Abs Auto 0.04 X10*3/uL (0.00-0.03); Imm Gran Pct Auto 0.5 % (0.0-0.4); Lymphocytes Absolute Auto 2.4 X10*3/uL (1.2-4.9); Lymphocytes Percent Auto 28.3 % (20-40); Mean Corpuscular HGB Conc 34.6 g/dl (31.0-35.0); Mean Corpuscular Hemoglobin 29.8 pg (27.0-33.0); Mean Corpuscular Volume 86.1 fL (80.0-98.0); Mean Platelet Volume 9.8 fL (9.4-12.3); Monocytes Absolute Auto 0.8 X10*3/uL (0.1-1.2); Monocytes Percent Auto 9.2 % (2-11); Neutrophils Absolute Auto 4.6 x10*3/uL (2.0-8.3); Neutrophils Percent Auto 55.7 % (45-73); Platelet Count 340 X10*3/uL (160-400); Red Blood Count 4.76 X10*6/uL (4.20-5.50); Red Cell Distribution Width 13.2 % (11.0-16.0); White Blood Count 8.3 X10*3/uL (4.8-10.8)
[2023-07-28 10:56] LABS: Estimated Average Glucose 108 mg/dL; Hemoglobin A1c % 5.4 % (<6.0)
[2023-07-28 11:17] LABS: Alanine Aminotransferase 11 U/L (0-31); Albumin Level 4.1 g/dL (3.5-5.0); Alkaline Phosphatase 88 U/L (39-117); Anion Gap 14 (12-20); Aspartate Amino Transferase 15 U/L (5-31); Bilirubin Total 0.7 mg/dL (0.0-1.0); Blood Urea Nitrogen 9 mg/dL (9-16); Carbon Dioxide 31 mmol/L (22-29); Chloride 90 mmol/L (96-108); Cholesterol 179 mg/dL (<200); Estimated Glomerular Filt Rate > 60; Glucose Random 107 mg/dL (60-115); HDL Cholesterol 57 mg/dL (>40); LDL Cholesterol Calculated 104 mg/dL (<100); Potassium 3.7 mmol/L (3.3-5.1); Sodium 131 mmol/L (135-145); Total Protein 7.3 g/dL (6.5-8.0); Triglycerides 94 mg/dL (<150)
[2023-07-28 11:35] LABS: Free T4 (Free Thyroxine) 0.98 ng/dL (0.71-1.85); Thyroid Stimulating Hormone 0.63 uIU/mL (0.32-4.0); Vitamin D 25-OH Total 109.1 ng/mL (>30)
[2023-07-28 11:40] LABS: Folate 6.1 ng/mL (> or = 4.0); Vitamin B12 403 pg/mL (200-900)
== END 2023-07-28 09:51 | disposition home or self-care (01) ==
LOC: HO.LAB 09:50
PROVIDERS: PCP Internal Medicine; Visit Provider Internal Medicine
DX: R73.02 Impaired glucose tolerance (oral) (principal); E78.00 Pure hypercholesterolemia, unspecified; M89.9 Disorder of bone, unspecified
CPT/HCPCS: 36415; 80053; 80061; 82306; 82607; 82746; 83036; 84439; 84443; 85025

== ENCOUNTER 2023-10-22 15:41 | Outpatient (AMB) | payer MEDICARE, SELFPAY ==
[2023-10-22 15:44] VITALS: BP 148/68; PULSE 64; O2SAT 97; BMI 37.0
--- NOTE | 2023-10-22 15:44 | A.OFFPC_ITS ---
Vital Signs 10/22/23 15:44 Height 4 ft 11 in Weight 183 lb 0.6 oz BMI 37.0 BP 148/68 H Blood Pressure Location Lt brachial Position Sitting Pulse 64 Pulse Source Pulse Oximeter Pulse Oximetry (%) 97 Oxygen Delivery Method Room Air Intake Visit Reasons: Asthma hypercholesterolemia hypertension Coordinator Of Online Programs Required: No Allergies pollen extracts Allergy (Mild, Verified 10/22/23 15:44) Sneezing amlodipine Allergy (Unknown, Verified 10/22/23 15:44) Unknown house dust Allergy (Unknown, Verified 10/22/23 15:44) Unknown losartan Allergy (Unknown, Verified 10/22/23 15:44) Unknown hydrochlorothiazide Adverse Reaction (Intermediate, Unverified 10/22/23 16:16) hyponatremia lisinopril Adverse Reaction (Intermediate, Unverified 10/22/23 16:12) cough prednisone Adverse Reaction (Intermediate, Verified 10/22/23 15:44) swelling LE Medication List - Last Reconciled 10/22/23 by Elliott Howell MD albuterol sulfate 90 mcg/actuation (Ventolin HFA) 2 puffs inhalation Q6H PRN alendronate 70 mg PO QWEEK 90 days cane As directed cholecalciferol (vitamin D3) 1,250 mcg PO QWEEK 90 days clotrimazole 1% 1 appl topical BID 4 weeks compress.stocking,knee,reg,lrg As directed diclofenac sodium 1% (Voltaren Arthritis Pain) 4 grams topical QID donepezil 5 mg PO BEDTIME lidocaine 5% 2 patches topical DAILY metoprolol succinate ER 25 mg PO DAILY nystatin 1 appl topical BID nystatin 1 appl topical BID pravastatin 20 mg PO DAILY [rollator walker with a seat As directed] Shower Chair with back umeclidinium-vilanterol 62.5-25 mcg/actuation (Anoro Ellipta) 1 inh inhalation DAILY Tobacco use date assessed: 10/22/23 Fall risk assessment: No Falls in past year Last assessed Fall Risk: 10/22/23 Dental Screening Dental Screen Date: 07/23/23 HPI Asthma hypercholesterolemia hypertension HPI Details 83-year-old obese female with hypertensi on hypercholesterolemia asthma impaired glucose tolerance hyperparathyroidism and lumbar spinal stenosis last seen in July 2023. [facility] Medical History (Updated 10/22/23 @ 16:18 by Elliott Howell MD) Pulmonary nodules Dyspnea Pulmonary scarring Rib pain on right side Lower extremity edema Right flank pain Swelling of lower leg Non-toxic multinodular goiter Osteoporosis Hyperparathyroidism Meningioma UTI (urinary tract infection) Confusion Impaired glucose tolerance Thyroid nodule Hypertension Asthma Obesity (BMI 30-39.9) Hypercholesterolemia Periorbital cellulitis of left eye Surgical History History of cholecystectomy History of thyroid surgery Family History Father CVD (cardiovascular disease) Myocardial infarction Mother Diabetes Vaginal cancer Sister Diabetes Son In good health Daughter In good health Daughter In good health Social History Housing: Apartment Alcohol intake: never Patient Tobacco Use Status: Never used Tobacco e-Cigarette/Vaping Use: Never Used Second Hand Smoke Exposure: No service: No Current occupational status: retired Cognitive needs: Yes (walker/cane) Hearing needs: No Vision needs: Yes (reading glasses) Questionnaire Thrive Questionnaire Date Thrive assessed: 10/22/23 I am a: Patient What is your living situation today?: I have a steady place to live Within the past 12 months, did the food you bought not last and you didn't have the money to get more?: Never true Within the past 12 months, did you worry whether your food would run out before you got money to buy more?: Never true Do you have trouble paying for medicines?: No Do you have trouble getting transportation to medical appointments?: No Do you have trouble paying your heating and electricity bill?: No Do you have trouble taking care of your child, family member or friend?: No Do you have trouble with day-to-day activities such as bathing, preparing meals, shopping, managing finances, etc.?: No Are you currently unemployed and looking for a job?: No Are you interested in more education?: No Please select the resources that you would like help with: None THRIVE Score: 0 AUDIT C Alcohol Use Questionnaire (AUDIT-C) 1. How often do you have a drink containing alcohol?: Never 3. How often do you have six or more drinks on one occasion?: Never Total Score: 0 LISANDRO-7 AMB Questionnaire LISANDRO-7 Date LISANDRO - 7 assessed: 07/23/23 Source: Developed by Drs. Reed Park, Gifty Youngblood, Emre Vickers and colleagues, with an educational grace from [email or web address]. Physical exam (Primary Care) Vital Signs: Last Vital Signs Pulse 64 10/22/23 15:44 BP 148/68 H 10/22/23 15:44 Pulse Ox 97 10/22/23 15:44 Oxygen Delivery Method Room Air 10/22/23 15:44 BMI result Body Mass Index 37.0 Tobacco/Smoking Status: Tobacco use Status Tobacco use date assessed 10/22/23 10/22/23 15:45 Patient Tobacco Use Status Never used Tobacco 10/22/23 15:45 e-Cigarette/Vaping Use Never Used 10/22/23 15:45 Thrive Assessment: Date of Thrive Assessment Date Thrive assessed 10/22/23 10/22/23 15:45 Const General: alert; No acute distress Eyes Conjunctivae: conjunctivae normal Resp Auscultation: clear to auscultation bilaterally Cardio Rate: regular rate Rhythm: regular rhythm GI Inspection: Yes normal to inspection Extrem General: Yes normal to inspection and No edema Assessment and Plan Assessment & Plan (1) Hypercholesterolemia: Code(s): E78.00 - Pure hypercholesterolemia, unspecified Plan: Avoid fried foods, chicken skin, eggs, butter margarine, pastries and meat. Be it pork or beef they have a lot of cholesterol LDL goal of less than 130 and triglyceride of less than 150 on pravastatin (2) Obesity (BMI 30-39.9): Code(s): E66.9 - Obesity, unspecified Plan: Diet and exercise (3) Asthma: Comment: PFTs with mild COPD Code(s): J45.909 - Unspecified asthma, uncomplicated Qualifiers: Asthma severity: mild Asthma persistence: intermittent Asthma complication type: uncomplicated Qualified Code(s): J45.20 - Mild intermittent asthma, uncomplicated Plan: Continue with Anoro and albuterol (4) Hypertension: Code(s): I10 - Essential (primary) hypertension Qualifiers: Hypertension type: essential hypertension Qualified Code(s): I10 - Essential (primary) hypertension Plan: Continue with blood pressure medication. Decrease salt intake and exercise pa erinnt presently on hydrochlorothiazide but concern about hyponatremia. (5) Impaired glucose tolerance: Code(s): R73.02 - Impaired glucose tolerance (oral) Plan: Decrease the amount of carbohydrate intake, pasta, bread, rice and potatoes are all sugar and that is aside from all the sweet stuff, remember that fruits are good but they are Sweet also. (6) Floaters: Code(s): H43.399 - Other vitreous opacities, unspecified eye Orders: Referrals Ophthalmology Referral H43.399 - Other vitreous opacities, unspecified eye Medications: New metoprolol succinate ER 25 mg PO DAILY 30 tabs 0RF I10 - Essential (primary) hypertension Discontinued hydrochlorothiazide Discontinued Reason: Doctor's Order 25 mg PO QAM 30 days 90 tabs 3RF I10 - Essential (primary) hypertension Coding Level of Care Code Est Pt Level 4 (64754) Diagnoses Hypercholesterolemia E78.00 Obesity (BMI 30-39.9) E66.9 Mild intermittent asthma without complication J45.20 Asthma severity: mild Asthma persistence: intermittent Asthma complication type: uncomplicated Essential hypertension I10 Hypertension type: essential hypertension Impaired glucose tolerance R73.02 Floaters H43.399
== END 2023-10-22 16:23 | disposition home or self-care (01) ==
PROVIDERS: PCP Internal Medicine; Visit Provider Internal Medicine
DX: J45.20 Mild intermittent asthma, uncomplicated (principal); E78.00 Pure hypercholesterolemia, unspecified; I10 Essential (primary) hypertension; R73.02 Impaired glucose tolerance (oral); H43.393 Other vitreous opacities, bilateral
CPT/HCPCS: 99214

== ENCOUNTER 2024-02-28 14:46 | Outpatient (AMB) | payer MEDICARE, SELFPAY ==
[2024-02-28 14:49] VITALS: BP 138/80; PULSE 69; O2SAT 98; BMI 36.2
--- NOTE | 2024-02-28 14:49 | A.OFFPC_ITS ---
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 Accompanied by: Self / Same As Patient Allergies pollen extracts Allergy (Mild, Verified 02/28/24 14:50) Sneezing amlodipine Allergy (Unknown, Verified 02/28/24 14:50) Unknown house dust Allergy (Unknown, Verified 02/28/24 14:50) Unknown losartan Allergy (Unknown, Verified 02/28/24 14:50) Unknown hydrochlorothiazide Adverse Reaction (Intermediate, Verified 02/28/24 14:50) hyponatremia lisinopril Adverse Reaction (Intermediate, Verified 02/28/24 14:50) cough prednisone Adverse Reaction (Intermediate, Verified 02/28/24 14:50) swelling LE Tobacco use date assessed: 02/28/24 Fall risk assessment: No Falls in past year Last assessed Fall Risk: 02/28/24 Dental Screening Dental Screen Date: 02/28/24 Did you have a dental visit in the last 12 months?: No Did you have a dental problem in the last 6 months where you did not have access to dental care?: No Was dental information given to patient?: Patient has dentist HPI 3 Month F/U HPI Details 83-year-old obese female(_noted 4 lb april ght loss) with hypercholesterolemia hypertension asthma impaired glucose tolerance last seen in 11/05/2023. Patient is due for the bone density and mammogram. 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 Patient was advised to start on Avastin injections every 3 m onths. Also glaucoma suspect. [facility] Medical History (Updated 12/06/23 @ 01:58 by Elliott Howell MD) Pulmonary nodules Dyspnea Pulmonary scarring Rib pain on right side Lower extremity edema Right flank pain Swelling of lower leg Non-toxic multinodular goiter Osteoporosis Hyperparathyroidism Meningioma UTI (urinary tract infection) Confusion Impaired glucose tolerance Thyroid nodule Hypertension Asthma Obesity (BMI 30-39.9) Hypercholesterolemia Periorbital cellulitis of left eye Surgical History History of cholecystectomy History of thyroid surgery Family History Father CVD (cardiovascular disease) Myocardial infarction Mother Diabetes Vaginal cancer Sister Diabetes Son In good health Daughter In good health Daughter In good health Social History Housing: Apartment Alcohol intake: never Patient Tobacco Use Status: Never used Tobacco e-Cigarette/Vaping Use: Never Used Second Hand Smoke Exposure: No service: No Current occupational status: retired Cognitive needs: Yes (walker/cane) Hearing needs: No Vision needs: Yes (reading glasses) Questionnaire PHQ-9 Over the last 2 weeks, how often have you been bothered by any of the following problems? 1. Little interest or pleasure in doing things: not at all 2. Feeling down, depressed, or hopeless: not at all 3. Trouble falling or staying asleep, or sleeping too much: not at all 4. Feeling tired or having little energy: not at all 5. Poor appetite or overeating: not at all 6. Feeling bad about yourself - or that you are a failure or have let yourself or your family down: not at all 7. Trouble concentrating on things, such as reading the newspaper or watching television: not at all 8. Moving or speaking so slowly that other people could have noticed. Or the opposite - being so fidgety or restless that you have been moving around a lot more than usual: not at all 9. Thoughts that you would be better off or of hurting yourself in some way: not at all Total score: 0 Depression Screening Interpretation: Negative Depression Screening Done: Yes Source: Developed by Drs. Reed Park, Gifty Youngblood, Emre Vickers and colleagues, with an educational grace from [employer]. Thrive Questionnaire Date Thrive assessed: 02/28/24 I am a: Patient What is your living situation today?: I have a steady place to live Within the past 12 months, did the food you bought not last and you didn't have the money to get more?: Never true Within the past 12 months, did you worry whether your food would run out before you got money to buy more?: Never true Do you have trouble paying for medicines?: No Do you have trouble getting transportation to medical appointments?: No Do you have trouble paying your heating and electricity bill?: No Do you have trouble taking care of your child, family member or friend?: No Do you have trouble with day-to-day activities such as bathing, preparing meals, shopping, managing finances, etc.?: No Are you currently unemployed and looking for a job?: No Are you interested in more education?: No Please select the resources that you would like help with: None Currently or been in a relationship where the following occur: No concerns reported THRIVE Score: 0 AUDIT C Alcohol Use Questionnaire (AUDIT-C) 1. How often do you have a drink containing alcohol?: Never 3. How often do you have six or more drinks on one occasion?: Never Total Score: 0 LISANDRO-7 AMB Questionnaire LISANDRO-7 Date LISANDRO - 7 assessed: 02/28/24 Feeling nervous, anxious, or on edge: 0 = Not at all Not being able to stop or control worryin = Not at all Worrying too much about different things: 0 = Not at all Trouble relaxin = Not at all Being so restless that it is hard to sit still: 0 = Not at all Becoming easily annoyed or irritable: 0 = Not at all Feeling afraid as if something awful might happen: 0 = Not at all Total LISANDRO-7 score (0-4 normal; 5-9 mild; 10-14 moderate; 15-21 severe): 0 Source: Developed by Drs. Reed Park, Gifty Youngblood, Emre Vickers and colleagues, with an educational grace from [employer]. Physical exam (Primary Care) Vital Signs: Last Vital Signs Pulse 69 02/28/24 14:49 BP 138/80 02/28/24 14:49 Pulse Ox 98 02/28/24 14:49 Oxygen Delivery Method Room Air 02/28/24 14:49 BMI result Body Mass Index 36.2 Tobacco/Smoking Status: Tobacco use Status Tobacco use date assessed 02/28/24 02/28/24 14:55 Patient Tobacco Use Status Never used Tobacco 02/28/24 14:55 e-Cigarette/Vaping Use Never Used 02/28/24 14:55 PHQ-9: PHQ-9 Score PHQ-9: Total score 0 02/28/24 14:55 Depression Screening Interpretation: Negative Thrive Assessment: Date of Thrive Assessment Date Thrive assessed 02/28/24 02/28/24 14:55 Currently or been in a relationship where the following occur: No concerns reported Const General: alert; No acute distress Eyes Conjunctivae: conjunctivae normal Resp Auscultation: clear to auscultation bilaterally Cardio Rate: regular rate Rhythm: regular rhythm GI Inspection: Yes normal to inspection Extrem General: Yes normal to inspection and No edema Assessment and Plan Assessment & Plan (1) Branch retinal vein occlusion of right eye: Comment: December 2023 Code(s): H34.8312 - Tributary (branch) retinal vein occlusion, right eye, stable Plan: Patient has been following up with Ophthalmology and has been placed on Avastin injections but patient declined (2) Osteoporosis: Comment: April 2020 Code(s): M81.0 - Age-related osteoporosis without current pathological fracture Qualifiers: Osteoporosis type: age-related Presence of current pathological fracture: without current pathological fracture Qualified Code(s): M81.0 - Age- related osteoporosis without current pathological fracture Plan: Patient is reminded about bone density (3) Impaired glucose tolerance: Code(s): R73.02 - Impaired glucose tolerance (oral) Plan: Decrease the amount of carbohydrate intake, pasta, bread, rice and potatoes are all sugar and that is aside from all the sweet stuff, remember that fruits are good but they are Sweet also. 08/07/2019 for last blood work (4) Hypertension: Code(s): I10 - Essential (primary) hypertension Qualifiers: Hypertension type: essential hypertension Qualified Code(s): I10 - Essential (primary) hypertension Plan: Continue with blood pressure medication. Decrease salt intake and exercise on metoprolol 25 mg once a day (5) Asthma: Comment: PFTs with mild COPD Code(s): J45.909 - Unspecified asthma, uncomplicated Qualifiers: Asthma severity: mild Asthma persistence: intermittent Asthma complication type: uncomplicated Qualified Code(s): J45.20 - Mild intermittent asthma, uncomplicated Plan: Continue with inhalers Anoro and albuterol as needed (6) Obesity (BMI 30-39.9): Code(s): E66.9 - Obesity, unspecified Plan: Diet and exercise (7) Hypercholesterolemia: Code(s): E78.00 - Pure hypercholesterolemia, unspecified Plan: Avoid fried foods, chicken skin, eggs, butter margarine, pastries and meat. Be it pork or beef they have a lot of cholesterol takes pravastatin 20 mg once a day. Request for blood work done Orders: Orders XR DEXA axial skeleton Today M81.0 - Age-related osteoporosis without current pathological fracture Complete Blood Count Auto Diff Today I10 - Essential (primary) hypertension Hemoglobin A1c Today I10 - Essential (primary) hypertension Free T4 (Free Thyroxine) Today I10 - Essential (primary) hypertension Lipid Panel Today E78.00 - Pure hypercholesterolemia, unspecified, I10 - Essential (primary) hypertension Vitamin B12 and Folate Today I10 - Essential (primary) hypertension Comprehensive Met. Panel Today I10 - Essential (primary) hypertension Thyroid Stimulating Hormone Today I10 - Essential (primary) hypertension Vitamin D 25-OH Total Today I10 - Essential (primary) hypertension Coding Level of Care Code Est Pt Level 4 (15004) Complex EM visit Add On G2211 Diagnoses Branch retinal vein occlusion of right eye H34.8396 Age-related osteoporosis without current pathological fracture M81.0 Osteoporosis type: age-related Presence of current pathological fracture: without current pathological fracture Impaired glucose tolerance R73.02 Essential hypertension I10 Hypertension type: essential hypertension Mild intermittent asthma without complication J45.20 Asthma severity: mild Asthma persistence: intermittent Asthma complication type: uncomplicated Obesity (BMI 30-39.9) E66.9 Hypercholesterolemia E78.00
== END 2024-02-28 15:30 | disposition home or self-care (01) ==
PROVIDERS: PCP Internal Medicine; Visit Provider Internal Medicine
DX: H34.8312 Tributary (branch) retinal vein occlusion, right eye, stable (principal); M81.0 Age-related osteoporosis without current pathological fracture; R73.02 Impaired glucose tolerance (oral); I10 Essential (primary) hypertension; J45.20 Mild intermittent asthma, uncomplicated; E78.00 Pure hypercholesterolemia, unspecified
CPT/HCPCS: 99214; G2211

== ENCOUNTER 2024-02-29 14:11 | Outpatient (AMB) | payer MEDICARE, MEDICAID, SELFPAY ==
[2024-02-29 14:58] VITALS: BP 134/74; PULSE 63; O2SAT 94; BMI 35.9
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
== END 2024-02-29 15:15 | disposition home or self-care (01) ==
PROVIDERS: PCP Internal Medicine; Visit Provider Hospitalist
DX: R06.00 Dyspnea, unspecified (principal); J45.20 Mild intermittent asthma, uncomplicated; J98.4 Other disorders of lung; R91.8 Other nonspecific abnormal finding of lung field
CPT/HCPCS: 99214

== ENCOUNTER → 2024-02-29 14:11 | Outpatient (BNVA) | payer MEDICARE, SELFPAY | PROVIDERS: PCP Internal Medicine; Visit Provider Hospitalist | DX: J45.20 Mild intermittent asthma, uncomplicated (principal); J98.4 Other disorders of lung; R91.8 Other nonspecific abnormal finding of lung field; R06.00 Dyspnea, unspecified | CPT/HCPCS: 99212 ==

== ENCOUNTER 2024-04-22 11:12 | Outpatient (AMB) | payer MEDICARE, MEDICAID, SELFPAY ==
--- NOTE | 2024-04-22 11:20 | MHC.OFFWIV ---
Intake Vital Signs 04/22/24 11:22 Weight 180 lb BP 140/92 H Blood Pressure Location Rt brachial Position Sitting Pulse 63 Pulse Source Pulse Oximeter Pulse Oximetry (%) 98 Oxygen Delivery Method Room Air Intake Visit Reasons: EP- RT side of head pain, sensitive to touch Intake Note: Patient here for right sided head pain that started yesterday and lasted all day and night. No injuries. pain came on suddenly. Patient Tobacco Use Status: Never used Tobacco Allergies pollen extracts Allergy (Mild, Verified 04/22/24 11:23) Sneezing amlodipine Allergy (Unknown, Verified 04/22/24 11:23) Unknown house dust Allergy (Unknown, Verified 04/22/24 11:23) Unknown losartan Allergy (Unknown, Verified 04/22/24 11:23) Unknown hydrochlorothiazide Adverse Reaction (Intermediate, Verified 04/22/24 11:23) hyponatremia lisinopril Adverse Reaction (Intermediate, Verified 04/22/24 11:23) cough prednisone Adverse Reaction (Intermediate, Verified 04/22/24 11:23) swelling LE Do you need a note to return to daycare/school/sports/work: No HPI HPI Comments History of Present Illness Details Presents to office with daughter who is caregiver She has hx of cognitive impairment; daughter helps with translation She has pain to R side of head to the back No pain today 0/10 Yesterday onset of discomfort No pain previously similar; throbbing random pain Lasted overnight No confusion or dizziness No recent falls or trauma Normal vision per pt; no change Tried Tylenol without relief No pain currently, 0/[address], fever PFSH Medical History (Updated 04/22/24 @ 11:44 by Nicole Parrish PA-C) Pulmonary nodules Dyspnea Pulmonary scarring Rib pain on right side Lower extremity edema Right flank pain Swelling of lower leg Non-toxic multinodular goiter Osteoporosis Hyperparathyroidism Meningioma UTI (urinary tract infection) Confusion Impaired glucose tolerance Thyroid nodule Hypertension Asthma Obesity (BMI 30-39.9) Hypercholesterolemia Periorbital cellulitis of left eye Surgical History History of cholecystectomy History of thyroid surgery Family History Father CVD (cardiovascular disease) Myocardial infarction Mother Diabetes Vaginal cancer Sister Diabetes Son In good health Daughter In good health Daughter In good health Social History Housing: Apartment Alcohol intake: never Patient Tobacco Use Status: Never used Tobacco e-Cigarette/Vaping Use: Never Used Second Hand Smoke Exposure: No service: No Current occupational status: retired Cognitive needs: Yes (walker/cane) Hearing needs: No Vision needs: Yes (reading glasses) Review of Systems Const Denies fever(s), Denies frequent falls and Reports headache(s) Eyes Denies change in vision ENT Denies dizziness, Reports headache(s), Denies nasal congestion and Denies sore throat Card Denies chest pain and Denies syncope Resp Denies cough GI Denies nausea and Denies vomiting Skin/Breast Denies rash Neuro Denies confusion (from baseline per daughter/caregiver), Denies dizziness, Denies syncope, Denies frequent falls and Reports headache(s) Psych Denies confusion (from baseline per daughter/caregiver) Physical Exam Vital Signs: Last Vital Signs Pulse 63 04/22/24 11:22 BP 140/92 H 04/22/24 11:22 Pulse Ox 98 04/22/24 11:22 Oxygen Delivery Method Room Air 04/22/24 11:22 General: Non-toxic, NAD. Speaking full sentences. Skin: Warm dry throughout Pt removed wig. She has no noted edema, massses or lesions to scalp, periauricular or neck region. No tenderness to palpation of scalp, facial bones, neck or c spine. Eye: EOMI, PERRL HENT: Airway patent. Uvula midline. No pharyngeal erythema or edema. No STRENGTH AND CONDITIONING COACH. Bilateral canals clear. TM non-erythematous, non-bulging. No TM perforation or hemotympanum noted. MSK: Full ROM extremities. Neurology: Alert. CN 2-12 grossly intact. 5/5 music historian strength and upper extremity strength with ROM. Negative pronator drift. No aphasia or facial droop. Gait without abnormality Psych: Good mood and affect Const General: No confusion (from baseline per daughter/caregiver) Orientation/consciousness: No confusion (from baseline per daughter/caregiver) Neuro General: No confusion (from baseline per daughter/caregiver) Assessment & Plan Assessment & Plan (1) Headache: Code(s): R51.9 - Headache, unspecified Qualifiers: Headache type: unspecified Headache chronicity pattern: acute headache Intractability: not intractable Qualified Code(s): R51.9 - Headache, unspecified Plan: Patient seen and evaluated. She had head pain yesterday which has resolved. 0/10 pain today Pain was with palpation of scalp but there is no notable rash concerning for shingles Discussed with daughter who is her caregiver and lives in same building that she needs to monitor area for rash. I showed her photos online of what to look for If there is onset of rash, she will call office immediately Obvious signs of altered mental status, weakness, vomiting or worsening symptoms, go to ER Patient and daughter gave verbal understanding and had no additional questions or concerns at time of discharge All questions answered Coding Level of Care Code Est Pt Level 3 (24820) Diagnoses Acute nonintractable headache, unspecified headache type R51.9 Headache type: unspecified Headache chronicity pattern: acute headache Intractability: not intractable
[2024-04-22 11:22] VITALS: BP 140/92; PULSE 63; O2SAT 98
== END 2024-04-22 12:48 | disposition home or self-care (01) ==
PROVIDERS: PCP Internal Medicine; Visit Provider Physician Assistant
DX: R51.9 Headache, unspecified (principal)

== ENCOUNTER → 2024-04-22 11:12 | Outpatient (BNVA) | payer MEDICARE, MEDICAID, SELFPAY | PROVIDERS: PCP Internal Medicine; Visit Provider Physician Assistant | DX: R51.9 Headache, unspecified (principal) | CPT/HCPCS: 99212 ==

== ENCOUNTER 2024-05-20 09:58 | Outpatient (REF) | payer MEDICARE, SELFPAY ==
--- NOTE | ~2024-05-20 | MM_ITS ---
EXAMINATION: BONE DENSITOMETRY CLINICAL INDICATION: Age-related osteoporosis without current pathological fracture. COMPARISON: This is the patient's baseline examination. TECHNIQUE: Using a [employer] DXA System (software version: 13.1) manufactured by [employer], dual-energy x-ray absorptiometry was performed of the lumbar spine and left hip. The images are of good technical quality. Summary results are attached. FINDINGS: LEFT FEMUR, NECK: BMD 0.797 g/cm2, Z-score 0.2, T-score -1.7, osteopenia. LEFT FEMUR, TOTAL: BMD 0.890 g/cm2, Z-score 0.9, T-score -0.9, normal. AP SPINE L1-L4: BMD 1.138 g/cm2, Z-score 0.9, T-score -0.3, normal. IDENTIFIED RISK FACTORS: Menopause, osteoporosis, dementia. HISTORY OF FRACTURE: None listed. MEDICATIONS: Vitamin D. MM/XR DEXA axial skeleton IMPRESSION: 1. DIAGNOSIS: Osteopenia based on the lowest T-score value of -1.7 in the femoral neck applying World Health Organization criteria. 2. 10-YEAR FRACTURE RISK PREDICTION, FRAX: Major osteoporotic fracture (clinical spine, forearm, hip or shoulder) 7.7%. Hip fracture 2.1%. 3. Treatment Recommendations: NOF guidelines recommend consideration for treatment in postmenopausal women and men age 50 and older presenting with the following: -A hip or vertebral (clinical or morphometric) fracture. -T-score less than or equal to -2.5 at the femoral neck or spine after appropriate evaluation to exclude secondary causes. -Low bone mass at the hip or spine and a 10-year fracture probability by FRAX of greater than or equal to 3% for hip fracture or greater than or equal to 20% for major osteoporotic fracture based on the [place] adapted WHO algorithm. 4. Other Recommendations: All treatment decisions require clinical judgment and consideration of individual patient factors, including patient preferences, comorbidities, previous drug use, risk factors not captured in the FRAX model (e.g. frailty, falls, vitamin D deficiency, increased bone turnover, interval significant decline in bone density) and possible under or overestimation of fracture risk by FRAX. Additional medical evaluation for secondary cause of low bone mineral density may be appropriate. FUTURE SCAN RECOMMENDATION: People with diagnosed cases of osteoporosis or at high risk for fracture should have regular bone mineral density tests. For patients eligible for Medicare, routine testing is allowed once every 2 years. The testing frequency can be increased to one year for patients who have rapidly progressing disease, those who are receiving or discontinuing medical therapy to restore bone mass, or have additional risk factors. Electronically signed by: Bambi Ernandez MD 05/21/2024 02:44 PM [facility]
== END 2024-05-20 09:59 | disposition home or self-care (01) ==
LOC: HO.MAMMO 09:58
PROVIDERS: PCP Internal Medicine; Visit Provider Internal Medicine
DX: M81.0 Age-related osteoporosis without current pathological fracture (principal)
CPT/HCPCS: 77080

== ENCOUNTER 2024-06-19 08:19 | Outpatient (REF) | payer MEDICARE, SELFPAY ==
--- OUTSIDE RECORDS SUMMARY | 2024-06-19 08:23 | XMS_ITS ---
Author Organization [facility] Shahla kathleen [place] Address [address] [place] [address] Care Team Providers Care Provider Relations Consultant Name Role Phone Elliott Howell Primary Care Provider Alex Castillo Unavailable [phone] Allergies No Known Allergies REASON FOR VISIT At Risk Footcare, Painful Nail(s) aggrevated by shoes and causing difficulty standing/walking., Skin Problem Medications Medication SIG (Take, Route, Frequency, Duration) Notes Start Date End Date Status Donepezil HCl 5 MG 1 tablet at bedtime Orally Once a day for 30 day(s) Active Alendronate Sodium 70 MG 1 tablet 30 min utes before the first food, beverage or medicine of the day with plain water Orally for 30 day(s) Active Ammonium Lactate 12 % 1 application to affected area Externally to feet Twice a day for 30 days Active Meloxicam 7.5 MG 1 tablet Orally Once a day for 30 day(s) Active hydroCHLOROthiazide 12.5 MG 1 capsule in the morning Orally Once a day for 30 day(s) Active Ciclopirox Olamine 0.77 % 1 application Externally Twice a day for 30 days Active Vitamin D3 1.25 MG (74477 UT) 1 capsule Orally for 30 day(s) Active Ciclopirox 0.77 % 1 application to affected area Externally Twice a day to effected nails for 30 days 01/22/2024 Active Pravastatin Sodium 20 MG 1 tablet Orally Once a day for 30 day(s) Active Metoprolol Succinate 25 MG 1 capsule Ora lly Once a day for 30 day(s) Active Social History Tobacco Use: Social History Observation Description Date Details (start date - stop date) Never Smoker NA - NA Tobacco Use/Smoking Question Answer Notes Are you a: nonsmoker Additional Findings: Tobacco Non-User Current no n-smoker Alcohol Screen Question Answer Notes Did you have a drink containing alcohol in the p ast year? No Points 0 Interpretation Negative Tobacco use other than smoking: Question Answer Notes Are you an other tobacco user? No Vital Signs Height 5 ft 4 in in 01/22/2024 Weight 181 lbs 01/22/2024 BMI 31.07 kg/m2 01/22/2024 Blood pressure systolic 120 mm Hg 01/22/20 24 Blood pressure diastolic 80 mm Hg 024 Procedures Procedure Date Ordered Date Performed Result Body Sit e 56240-FBIBOTZ NAIL, 1-5 01/22/2024 N/A 21300-OYXT SKIN LESIONS, OVER 4 01/22/2024 N/A N8867-YBOGUTBB DYSTROPHIC NAILS ANY # 01/22/2024 N/A Encounters Encounter Location Date Provider Diagnosis [facility] [address] [address] 01/22/2024 Alex Antonio Atherosclerosis of atka artery of both lower extremities, with unspecified presence of clinical manifestation I70.203 ; Tinea unguium B35.1 ; Pain in right toe(s) M79.674 ; Pain in left toe(s) M79.675 and Tinea pedis of both feet B35.3 Assessments Encounter Date Diagnosis (ICD Code) Assessment Notes Treatment Notes Treatment Clinical Notes Section Notes 01/22/2024 Atherosclerosis of atka artery of both lower extremities, with unspecified presence of clinical manifestation (ICD-10 - I70.203) 01/22/2024 Tinea unguium (ICD-10 - B35.1) 01/22/2024 Pain in right toe(s) (ICD-10 - M79.674) 01/22/2024 Pain in left toe(s) (ICD-10 - M79.675) 01/22/2024 Tinea pedis of both feet (ICD-10 - B35.3) Plan Of Treatment Medication Medication Name Sig Start Date Stop Date Notes Ciclopirox Olamine 0.77 % 1 application Externally Twice a day for 30 days Ciclopirox 0.77 % 1 application to aff ected area Externally Twice a day to effected nails for 30 days 01/22/2024 Pending Test Test Name Order Date 68419-BIJTQHL NAIL, 1-5 01/22/2024 20369-ZQUF SKIN LESIONS, OVER 4 01/22/20 24 D8211-YEIZZNIM DYSTROPHIC NAILS ANY # Next Appt Details Follow Up: prn, Reason: Procedure Notes * Category Sub-Category Detail Notes Keratoma Treatment Parring or Cutting o f Benign Hyperkeratotic Lesion(s) 63884 ( >4 Lesions) - The Benign hyperkeratotic lesions, as described above were pared, and/or cut utilizing a sterile #15 blade, tissue nippers, and/or dremel, Q8 Debride Nails 1-5 Procedure: Nail debrideme nt performed extensively to reduce/remove overall nail length and girth, subungual debris, and necrotic tissue, by manual and electrical means with use of a nail nipper and/or dremel, to more viable healthy nail plate or bed tissue 1-5. Silver nitrate used for any petechial bleeding as necessary (33214). Patient chooses , topical antifungal , due to cholesterol meds , Cilclopirox gel 0.77 percent rxed Nail Reduction Nail Reduction Trimming of dyst rophic nails performed to reduce/remove overall nail length and girth, by manual and electrical means with use of a nail nipper and/or dremel, to more viable healthy nail plate or bed tissue (Q2951-P3) Progress Notes * Elisa ASHTONDOB:1940 (83 yo F)Acc No.[id number]:01/22/2024 Progress Note Patient:?Elisa Ashton Provider:?Alex Antonio DPM :1940???Age:83 Y???Sex:Female D ate:01/22/2024 Address:[address] [place] [address], [id number] Pcp:Elliott Howell Subjective: * Chief Complaints: * ???At Risk FootcarePainful N ail(s) aggrevated by shoes and causing difficulty standing/walking.Skin Problem * HPI: ???At Risk footcare:?Pt States Last PCP Visit:?Date?10/09/2023 ???Skin problems:?Nature:?scaling , redness.?Location:?B/L .?Duration:?several days.?Course:?worse.? * ROS:?General/Constitutional:?Nausea?denies.?Vomiting?denies.?Hunger Thirst?denies.?Loss appetite?admits.?Chills?denies.?Fatigue?denies.?Fever?denies.?Night Sweats?denies.?Unexplained weight loss?denies.?Unexplained weight gain?denies.?HEENTM:?Dentures?denies.?Dizziness?denies.?Glasses/contacts?denies.?Retinopathy?de nies.?Blurred/double vision?admits.?TMJ?denies.?Discharge/drainage?denies.?Implants?denies.?Sore throat?denies.?Dental implants?denies.?Hard of hearing ?denies.?Difficulty chewing/swallowing/speaking?denies.?Nose bleeds?denies.?Sore mouth?denies.?Respiratory:?On Oxygen?denies.?Pneumonia/pleurisy?denies.?Bronchitis?denies.?Emphysema?denies.?C oughing?denies.?Cough blood?denies.?Shortness of breath?denies.?Wheezing?denies.?Cardiovascular:?Pacemaker?denies.?MVP?denies.?WPW?denies.?CHF?denies.?Heart attack?denies.?Septal defect?denies.?Rapid beat?denies.?Chest pain ?denies.?Atrial Fib.?denies.?Murmur/Palpitations?denies.?Gastrointestinal:?Hemorrhoids?denies.?Stomach/Abdominal pain?denies.?Dark blood stool?denies.?Irritable bowel ?denies.?Constipation?denies.?Diarrhea?denies.?Hematology:?Swelling?admits.?Clots?denies.?Varicose Veins?denies.?Bruising?denies.?Bleeding problem?denies.?Genitourinary:?Blood urine?denies.?Frequent/Painfu/urination/bladder control?denies.?Kidney stones?denies.?Infection (UTI)?denies.?Nephropathy?denies.?sex trans dis (STD)?denies.?Prostate?denies.?Musculoskeletal:?Hammertoes?denies.?Bunions?denies.?Back Pain?denies.?Muscle Cramps/ Resting?denies.?Muscle cramps / walking?denies.?Generalized aches and pains?admits.?Weakness?denies.?Integ.:?Sneed?denies.?Scars?denies.?Corns/calluses?admits.?Ingrown nails?admits.?Painful nails?admits.?Open Sores?denies.?Rashes?denies.?Neurologic:?Difficulty sleeping?admits.?Brain disorder?denies.?Numbness?denies.?Balance trouble?admits.?Confusion?admits.?Fainting/blackouts?denies.?Tingling?denies.?Tr emors?denies.? * Medical History:? * Surgical History:?Denies Pas t Surgical History * Hospitalization/Major Diagno stic Procedure:?Years a go can't remember * Family History:?Mother: dece ased, diagnosed with Other malignant neoplasm of unspecified site.?Father: .? * Social History:?Tobacco Use:?Tobacco Use/Smoking?Are you a:?nonsmoker ?Additional Findings: Tobacco Non-User?Current non-smoker ?Tobacco use other than smoking?Are you an other tobacco user??No ???Drugs/Alcohol:?Drugs?Have you used drugs other than those for medical reasons in the past 12 months??No ?Alcohol Screen?Did you have a drink containing alcohol in the past year??No ?Points?0 ?Interpretation?Negative ???Miscellaneous:?no Caffeine, none. ?Children: yes. ?Exercise: yes, walking alot , occasional. ?Marital status: single. 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 * Medications:?TakingAlendrona te Sodium 70 MG Tablet 1 tablet 30 minutes before the first food, beverage or medicine of the day with plain water Orally Donepezil HCl 5 MG Tablet 1 tablet at bedtime Orally Once a dayhydroCHLOROthiazide 12.5 MG Capsule 1 capsule in the morning Orally Once a dayMeloxicam 7.5 MG Tablet 1 tablet Orally Once a dayMetoprolol Succinate 25 MG Capsule ER 24 Hour Sprinkle 1 capsule Orally Once a dayPravastatin Sodium 20 MG Tablet 1 tablet Orally Once a dayVitamin D3 1.25 MG (61974 UT) Capsule 1 capsule Orally Ammonium Lactate 12 % Cream 1 application to affected area Externally to feet Twice a dayMedication List reviewed and reconciled with the patientTaking Alendronate Sodium 70 MG Tablet 1 tablet 30 minutes before the first food, beverage or medicine of the day with plain water Orally Taking Donepezil HCl 5 MG Tablet 1 tablet at bedtime Orally Once a dayTaking hydroCHLOROthiazide 12.5 MG Capsule 1 capsule in the morning Orally Once a dayTaking Meloxicam 7.5 MG Tablet 1 tablet Orally Once a dayTaking Metoprolol Succinate 25 MG Capsule ER 24 Hour Sprinkle 1 capsule Orally Once a dayTaking Pravastatin Sodium 20 MG Tablet 1 tablet Orally Once a dayTaking Vitamin D3 1.25 MG (44111 UT) Capsule 1 capsule Orally Taking Ammonium Lactate 12 % Cream 1 application to affected area Externally to feet Twice a dayMedication List reviewed and reconciled with the patient * Allergies:?N.K.D.A.yes[Aller gies Verified] Objective: * Vitals:?Ht: 5 ft 4 in, Wt:18 1, BMI:31.07, Shoe size:6, BP:120/80 mm Hg, BS:not taken. * Examination: ???Vascular: ?DP PULSES:? 0/4, LEFT, 1/4, RIGHT.?PT PULSES:? 0/4, B/L.?CAPILLARY FILL TIME:? delayed, all digits, B/L.?SKIN TEMPERTURE GRADIENT OF THE LOWER EXTERMITIES:? decreased, cool to cool, proximal to distal, B/L.?HAIR GROWTH/TEXTURE/ELASTICITY/TURGOR:? decreased, B/L.?PIGMENTATION:? rubrous, B/L.?EDEMA:? 2/4, non-pitting, without aching pain, B/L, Leg(s), Ankle(s), Feet.?CLAUDICATION:?denies, B/L.?REST PAIN:?denies, B/L.?Nails: ?NAILS are:?Elongated, overgrown, dystrophic, lytic, greater than 3mm thick, discolored and friable with crumbly malodorous subungual debris, with pain on palpation, TA, T5, T9, remaining nails are elongated, overgrown, dystrophic.?Dermatologic: ?SKIN FINDINGS:?Skin exam reveals Keratotic lesion(s) located at, Medial, IPJ, TA, Medial, IPJ, T5, SUB MTH (s), 1, B/L , Heel(s), B/L , Skin shows sign(s) of, erythema, scaling, in a moccasin fashion, no fissure(s) present, B/L.? Assessment: * Assessment: 1.?Tinea unguium - B35.1?2.? Atherosclerosis of atka artery of both lower extremities, with unspecified presence of clinical manifestation - I70.203?3.?Pain in right toe(s) - M79.674?4.?Pain in left toe(s) - M79.675?5.?Tinea pedis of both feet - B35.3, Acute problem, Uncomplicated (3),Rx drug management (4)? Plan: * Treatment: 2.?Atherosclerosis of atka artery of both lower extremities, with unspecified presence of clinical manifestation?Procedure: 93647-POBW SKIN LESIONS, OVER 4 ?Procedure: D3952-ECKVSMIW DYSTROPHIC NAILS ANY # 3.?Tinea pedis of both feet? Start Ciclopirox Olamine Cream, 0.77 %, 1 application, Externally, Twice a day, 30 days, 60, Refills 2.?? * Procedures:?Debride Nails 1-5:?Procedure:?Nail debridement performed extensively to reduce/remove overall nail length and girth, subungual debris, and necrotic tissue, by manual and electrical means with use of a nail nipper and/or dremel, to more viable healthy nail plate or bed tissue 1-5. Silver nitrate used for any petechial bleeding as necessary (28025). Patient chooses , topical antifungal , due to cholesterol meds , Cilclopirox gel 0.77 percent rxed.?Keratoma Treatment:?Parring or Cutting of Benign Hyperkeratotic Lesion(s)?69197 ( >4 Lesions) - The Benign hyperkeratotic lesions, as described above were pared, and/or cut utilizing a sterile #15 blade, tissue nippers, and/or dremel, Q8.?Nail Reduction:?Nail Reduction?Trimming of dystrophic nails performed to reduce/remove overall nail length and girth, by manual and electrical means with use of a nail nipper and/or dremel, to more viable healthy nail plate or bed tissue (B0570-T3).? * Procedure Codes:?20928 TRIM SKIN LESIONS, OVER 4, Modifiers: XS , S3R2350 TRIMMING DYSTROPHIC NAILS ANY #, Modifiers: XS , E550323 DEBRIDE NAIL, 1-5, Modifiers: XS * Preventive Medicine:? ??Counseling:?Discussion:?-13: Office or other outpatient visit for the evaluation and management of an established patient, which required a medically appropriate history and/or examination and LOW level of DECISION MAKING for: 1 STABLE ACUTE UNCOMPLICATED PROBLEM, 2 OR MORE MINOR PROBLEMS, OR 1 STABLE CHRONIC PROBLEM, THAT POSE(S) A LOW RISK FOR MORBIDITY/MORTALITY. The visit on the day of the encounter encompassed interpreting the data and educating the patient as to the nature of their condition, treatment options available according to their individual PMH, meds, allergies, and overall health/living conditions, as well as any potential risks or complications that may occur from a failure to adhere to, and participate in, the recommended course of therapy. The discussion included a complete verbal, and/or written explanation of the examination results, any x-rays taken, the proposed diagnosis, and outline of the treatment plan. A schedule for future care needs was also explained. The patient verbalized an understanding of the instructions at this time and agreed to be an active participant in their treatment. If the patient should think of any questions or concerns after the visit, I have encouraged the patient to call the office.?Tinea Pedis:?The patient was counseled on the diagnosis, potential etiologies, and treatment options for their skin condition. We discussed the risks and benefits of each option from performing no treatment, to utilizing OTC topical skin creams, prescription topical creams, customized compounded topical medications, and, if necessary, to utilize oral antifungal therapy. We discussed the advantages and disadvantages of each possible treatment and importance for adherence to all the recommended therapies for optimum success and avoid potential complications such as open sore/infection/possible hospitalization. We discussed the potential effectiveness of each topical preparation as well as each ones possible side effects and/or patient medication interactions if oral therapy is selected. Patient questions re: the advantages and disadvantages of each treatment choice, medication use/dosage, successful outcomes, and application consistency were reviewed and the patient verbalized that all answers were clearly understood. The patient was told they can help alleviate symptoms by utilizing moisture absorbant innersoles with activated charcoal and baking soda, applying antifungal sprays daily, aerating toe web spaces at night by putting cotton or lambs wool between the toes, alternating shoe gear daily if possible so they can dry out, changing socks at least once during the day, wearing well-ventilated shoes or sandals. The patient has decided to apply antifungal skin creams to their feet as directed. Rx was sent to their pharmacy at the time of visit.? * Follow Up:?prn * Images: * Sign off status: Completed true * Provider:?Alex Antonio DPM Date:?2023 Generated for Tiki arthur/Dao/Evy on:?06/19/2024 08:23 AM EST History and Physical Notes * HPI (History of Present Illness) Category Sub-Category Detail Notes Category Not es Skin problems Nature: scaling , redness Location: B/L Duration: several days Course: worse At Risk footcare Pt States Last PCP Visit: Date: Examination Category Sub-Category Detail Notes Category Not es Dermatologic SKIN FINDINGS: Skin exam reveal s Keratotic lesion(s) located at, Medial, IPJ, TA, Medial, IPJ, T5, SUB MTH (s), 1, B/L , Heel(s), B/L , Skin shows sign(s) of, erythema, scaling, in a moccasin fashion, no fissure(s) present, B/L Vascular DP PULSES (B): 0/4, LEFT, 1/4, RIGHT PT PULSES (B): 0/4, B/L CAPILLARY FILL TIME: delayed, all digits , B/L TEMPERTURE GRADIENT (C): decreased, cool to cool, proximal to distal, B/L TROPHIC CONDITION-TEXTURE/ELASTICITY/TURGOR/HAIR GROWTH (B): decreased, B/L EDEMA (C): 2/4, non-pitting, wi thout aching pain, B/L, Leg(s), Ankle(s), Feet CLAUDICATION (C): denies, B/L REST PAIN: denies, B/L PIGMENTATION: rubrous, B/L Nails NAILS are: Elongated, overg rown, dystrophic, lytic, greater than 3mm thick, discolored and friable with crumbly malodorous subungual debris, with pain on palpation, TA, T5, T9, remaining nails are elongated, overgrown, dystrophic
--- OUTSIDE RECORDS SUMMARY | 2024-06-19 08:24 | XMS_ITS ---
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 Name Role Phone Elliott Howell Primary Care Provider Alex Castillo Unavailable [phone] Allergies No Known Allergies REASON FOR VISIT At Risk Footcare, Painful Nail(s) aggrevated by shoes and causing difficulty standing/walking., Skin problem(s) Medications Medication SIG (Take, Route, Frequency, Duration) Notes Start Date End Date Status Vitamin D3 1.25 MG (45233 UT) 1 capsule Orally for 30 day(s) Active Donepezil HCl 5 MG 1 tablet at bedtime Orally Once a day for 30 day(s) Active hydroCHLOROthiazide 12.5 MG 1 capsule in the morning Orally Once a day for 30 day(s) Active Ammonium Lactate 12 % 1 application to affected area Externally to feet Twice a day for 30 days Active Alendronate Sodium 70 MG 1 tablet 30 min utes before the first food, beverage or medicine of the day with plain water Orally for 30 day(s) Active Pravastatin Sodium 20 MG 1 tablet Orally Once a day for 30 day(s) Active Meloxicam 7.5 MG 1 tablet Orally [...] Signs Height 5 ft 4 in in 04/30/2023 Weight 181 lbs 04/30/2023 BMI 31.07 kg/m2 04/30/2023 Procedures Procedure Date Ordered Date Performed Result Body Sit e 65197-WLSOVBC NAIL, 1-5 04/30/2023 N/A 92778-LYKX SKIN LESIONS, OVER 4 04/30/2023 N/A L3595-CWZZMCWB DYSTROPHIC NAILS ANY # 04/30/2023 N/A Encounters Encounter Location Date Provider Diagnosis [facility] [address] [address] 04/30/2023 Alex Antonio Atherosclerosis of [place] artery of both lower extremities, with unspecified presence of clinical manifestation I70.203 ; Xerosis cutis L85.3 ; Tinea unguium B35.1 ; Pain in right toe(s) M79.674 and Pain in left toe(s) M79.675 Assessments Encounter Date Diagnosis (ICD Code) Assessment Notes Treatment Notes Treatment Clinical Notes Section Notes 04/30/2023 Atherosclerosis of [place] artery of both lower extremities, with unspecified presence of clinical manifestation (ICD-10 - I70.203) 04/30/2023 Xerosis cutis (ICD-10 - L85.3) Response to treatment,Unch anged due to illness 04/30/2023 Tinea unguium (ICD-10 - B35.1) 04/30/2023 Pain in right toe(s) (ICD-10 - M79.674) 04/30/2023 Pain in left toe(s) (ICD-10 - M79.675) Plan Of Treatment Medication Medication Name Sig Start Date Stop Date Notes Ammonium Lactate 12 % 1 application to a ffected area Externally to feet Twice a day for 30 days Pending Test Test Name Order Date 43413-FDLKPOH NAIL, 1-5 04/30/2023 42833-EJJP SKIN LESIONS, OVER 4 04/30/20 23 A9425-RLCSYNYU DYSTROPHIC NAILS ANY # Next Appt Details Follow Up: prn, Reason: Procedure Notes * Category Sub-Category Detail Notes Keratoma Treatment Parring or Cutting o f Benign Hyperkeratotic Lesion(s) 02507 ( >4 Lesions) - The Benign hyperkeratotic [...] used for any petechial bleeding as necessary (97201). Patient chooses, no pharmaceutical tx Nail Reduction Nail Reduction Trimming of dyst rophic nails performed to reduce/remove overall nail length and girth, by manual and electrical means with use of a nail nipper and/or dremel, to more viable healthy nail plate or bed tissue 6-10 (I0971-H2) Progress Notes * Elisa ASHTONDOB:1940 (82 yo F)Acc No.[id number]:04/30/2023 Progress Note Patient:?Elisa Ashton Provider:?Alex Antoino DPM :1940???Age:82 Y???Sex:Female D ate:04/30/2023 Address:[address] [place] [address] Pcp:Elliott Howell Subjective: * Chief Complaints: * ???At Risk FootcarePainful N ail(s) aggrevated by shoes and causing difficulty standing/walking.Skin problem(s) * HPI: ???At Risk footcare:?Pt States Last PCP Visit:?Date?04/04/2023 ???Skin problems:?Treatments:?medication ( AM Lactin ) , admits nonadherence to recommended application due to being sick/unable to apply.? * ROS:?General/Constitutional:?Nausea?denies.?Vomiting?denies.?Hunger Thirst?denies.?Loss appetite?admits.?Chills?denies.?Fatigue?denies.?Fever?denies.?Night Sweats?denies.?Unexplained weight loss?denies.?Unexplained [...] trouble?admits.?Confusion?admits.?Fainting/blackouts?denies.?Tingling?denies.?Tr emors?denies.? * Medical History:? * Surgical History:?No Surgica l History documented. * Hospitalization/Major Diagno stic Procedure:?Years a go [...] Orally Once a dayVitamin D3 1.25 MG (06216 UT) Capsule 1 capsule Orally Ammonium Lactate [...] Once a dayTaking Vitamin D3 1.25 MG (09786 UT) Capsule 1 capsule Orally Taking Ammonium Lactate 12 % Cream 1 application to affected area Externally to feet Twice a dayMedication List reviewed and reconciled with the patient * Allergies:?N.K.D.A.yes[Aller gies Verified] Objective: * Vitals:?Ht: 5 ft 4 in, Wt: 1 81, BMI: 31.07, Shoe size: 6, Wt-k.1 kg. * Examination: ???Vascular: ?DP PULSES:? 0/4, LEFT, [...] 1, B/L , Heel(s), B/L , Skin STILL, shows sign(s) of, dryness, scaling, in a stocking fashion, no fissure(s) present, B/L.? Assessment: * Assessment: 1.?Xerosis cutis - L85.3 (Pr jose r), Acute problem, Uncomplicated (3), Response to treatment,Unchanged due to illness?2.?Atherosclerosis of [place] artery of both lower extremities, with unspecified presence of clinical manifestation - I70.203?3.?Tinea unguium - B35.1?4.?Pain in right toe(s) - M79.674?5.?Pain in left toe(s) - M79.675? Plan: * Treatment: 2.?Atherosclerosis of [place] artery of both lower extremities, with unspecified presence of clinical manifestation?Procedure: 27605-IQXO SKIN LESIONS, OVER 4 ?Procedure: W8878-VRTRLTNC DYSTROPHIC NAILS ANY # 3.?Tinea unguium?Procedure: 64957-FLNJPJP NAIL, 1-5 * Procedures:?Debride Nails 1-5:?Procedure:?Nail debridement performed extensively to reduce/remove overall nail length and girth, subungual debris, and necrotic tissue, by manual and electrical means with use of a nail nipper and/or dremel, to more viable healthy nail plate or bed tissue 1-5. Silver nitrate used for any petechial bleeding as necessary (21520). Patient chooses, no pharmaceutical tx.?Keratoma Treatment:?Parring or Cutting of Benign Hyperkeratotic Lesion(s)?72780 ( >4 Lesions) - The Benign hyperkeratotic lesions, as described above were pared, and/or cut utilizing a sterile #15 blade, tissue nippers, and/or dremel, Q8.?Nail Reduction:?Nail Reduction?Trimming of dystrophic nails performed to reduce/remove overall nail length and girth, by manual and electrical means with use of a nail nipper and/or dremel, to more viable healthy nail plate or bed tissue 6-10 (G0127- Q8).? * Procedure Codes:?56973 TRIM SKIN LESIONS, OVER 4, Modifiers: XS , [id number] TRIMMING DYSTROPHIC NAILS ANY #, Modifiers: XS , N232920 DEBRIDE NAIL, 1-5, Modifiers: XS * Preventive [...] have encouraged the patient to call the office.?Xerosis:?The Pt was again counseled on the diagnosis, potential etiologies, and treatment options for their skin condition. We discussed the risks and benefits of each option from performing no treatment, to utilizing OTC topical skin creams/ointments, to utilizing prescription topical creams/ointments, to utilizing customized compounded topical medications and use of nocturnal occlusion with any/all previously detailed therapies. We discussed the advantages and disadvantages of each possible treatment and importance for adherence to all the recommended therapies for optimum success and avoid potential complications such as open sore/infection/possible hospitalization. We discussed the potential effectiveness of each topical preparation as well as each ones possible side effects and/or patient medication interactions. Patient questions re: use, dosage, successful outcomes, and application consistency were reviewed and the patient verbalized that all answers were clearly understood. The patients daughter has decided to apply Rx skin creams to her mothers feet save the interspaces paying special attention to the heels.? * Follow Up:?prn * Images: * Sign off status: Completed true * Provider:?Alex Antonio DPM Date:?2022 Generated for Tiki arthur/Dao/Evy on:?06/19/2024 08:23 AM EST History and Physical Notes * HPI (History of Present Illness) Category Sub-Category Detail Notes Category Not es Skin problems Treatments: medication ( AM Lactin ) , admits nonadherence to recommended application due to being sick/unable to apply At Risk footcare Pt States Last PCP Visit: Date: 04/04/2023 Examination Category Sub-Category Detail Notes Category Not es Dermatologic SKIN FINDINGS: Skin exam reveal s Keratotic lesion(s) located at, Medial, IPJ, TA, Medial, IPJ, T5, SUB MTH (s), 1, B/L , Heel(s), B/L , Skin STILL, shows sign(s) of, dryness, scaling, in a stocking fashion, no fissure(s) present, B/L Vascular DP [...]
--- OUTSIDE RECORDS SUMMARY | 2024-06-19 08:24 | XMS_ITS | Patient Health Record ---
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 No Problems Problem Type SNOMED Code ICD Code Onset Dates Problem Status W/U Status Risk Notes Problem Atherosclerosis of [place] arteries of the extremities ([id number]) Atherosclerosis of [place] artery of both lower extremities, with unspecified presence of clinical manifestation (I70.203) Active confirmed Vital Signs Blood pressure diastolic 80 mm Hg 01/22/2024 Height 5 ft 4 in in 01/22/2024 Blood pressure systolic 120 mm Hg 01/22/2024 Weight 181 lbs 01/22/2024 BMI 31.07 kg/m2 01/22/2024 Procedures Procedure Date Ordered Date Performed Result Body Sit e 99740-AMYMJAX NAIL, 1-5 01/22/2024 N/A 35293-QKMY SKIN LESIONS, OVER 4 01/22/2024 N/A A3395-MIWREJMZ DYSTROPHIC NAILS ANY # 01/22/2024 N/A Encounters Encounter Location Date Provider Diagnosis [facility] [address] [address] [place] [address] 01/22/2024 Alex Antonio Atherosclerosis of [place] artery of both lower extremities, with unspecified presence of clinical manifestation I70.203 ; Tinea unguium B35.1 ; Pain in right toe(s) M79.674 ; Pain in left toe(s) M79.675 and Tinea pedis of both feet B35.3 Assessments Encounter Date Diagnosis (ICD Code) Assessment Notes Treatment Notes Treatment Clinical Notes Section Notes 01/22/2024 Tinea unguium (ICD-10 - B35.1) 01/22/2024 Atherosclerosis of [place] artery of both lower extremities, with unspecified presence of clinical manifestation (ICD-10 - I70.203) 01/22/2024 Pain in right toe(s) (ICD-10 - M79.674) 01/22/2024 Pain in left toe(s) (ICD-10 - M79.675) 01/22/2024 Tinea pedis of both feet (ICD-10 - B35.3) Plan Of Treatment Pending Test Test Name Order Date 88656-FVSANFV NAIL, 1-5 04/11/2022 85277-BKYNDGC NAIL, 1-5 07/28/2022 07995-PWEWVIG NAIL, 1-5 04/30/2023 94115-OSKGXZI NAIL, 1-5 01/22/2024 59560-JURG SKIN LESIONS, OVER 4 01/22/20 24 01340-OYLS SKIN LESIONS, OVER 4 04/30/20 23 50081-IKLX SKIN LESIONS, OVER 4 07/28/19 23 39359-QNFQ SKIN LESIONS, 2 TO 4 04/11/20 22 Y3252-YQGHCJVV DYSTROPHIC NAILS ANY # Q2595-DEGQZZNV DYSTROPHIC NAILS ANY # V3651-OLKLDPAG DYSTROPHIC NAILS ANY # C2704-ISSZHQFK DYSTROPHIC NAILS ANY # Insurance Providers Payer Name Payer Address Payer Phone Subscriber Number Group Number Insured Name Patient Relationship to Insured Coverage Start Date Coverage End Date [employer] [address] [place] [phone] [id number] Elisa Falcon Self - patient is the insured Medical (General) History Medical History History ICD Code Alzheimers disease Arthritis Back pain Dementia Gout High blood pressure Osteoporosis CAD Surgical History Surgery Date(Month/Year) Hospitalization History Reason Date(Month/Year) Years a go can't remember
[2024-06-19 08:41] LABS: MANUAL DIFF FLAG NO
[2024-06-19 09:10] LABS: Basophils Absolute Auto 0.1 X10*3/uL (0.0-0.2); Basophils Percent Auto 0.7 % (0-2); Eosinophils Absolute Auto 0.5 X10*3/uL (0.0-0.4); Eosinophils Percent Auto 6.6 % (0-4); Hematocrit 44.2 % (37.0-47.0); Hemoglobin 14.3 g/dl (12.0-16.0); Imm Gran Abs Auto 0.02 X10*3/uL (0.00-0.03); Imm Gran Pct Auto 0.3 % (0.0-0.4); Lymphocytes Absolute Auto 2.4 X10*3/uL (1.2-4.9); Mean Corpuscular HGB Conc 32.4 g/dl (31.0-35.0); Mean Corpuscular Hemoglobin 29.6 pg (27.0-33.0); Mean Corpuscular Volume 91.5 fL (80.0-98.0); Monocytes Absolute Auto 0.6 X10*3/uL (0.1-1.2); Monocytes Percent Auto 7.9 % (2-11); Neutrophils Absolute Auto 3.9 x10*3/uL (2.0-8.3); Neutrophils Percent Auto 52.5 % (45-73); Platelet Count 299 X10*3/uL (160-400); Red Blood Count 4.83 X10*6/uL (4.20-5.50); Red Cell Distribution Width 14.6 % (11.0-16.0); White Blood Count 7.4 X10*3/uL (4.8-10.8)
[2024-06-19 09:15] LABS: Estimated Average Glucose 111 mg/dL; Hemoglobin A1C 127.9906 umol/L; Hemoglobin A1c % 5.5 % (<6.0); Total Hemoglobin (HGBA1C) 3510.7463 umol/L
[2024-06-19 09:40] LABS: Alanine Aminotransferase 10 U/L (0-31); Alkaline Phosphatase 91 U/L (39-117); Anion Gap 10 (12-20); Aspartate Amino Transferase 19 U/L (5-31); Bilirubin Total 0.8 mg/dL (0.0-1.0); Blood Urea Nitrogen 13 mg/dL (9-16); Calcium 9.9 mg/dL (8.4-10.2); Carbon Dioxide 30 mmol/L (22-29); Chloride 105 mmol/L (96-108); Cholesterol 200 mg/dL (<200); Estimated Glomerular Filt Rate > 60; Glucose Random 105 mg/dL (60-115); HDL Cholesterol 58 mg/dL (>40); LDL Cholesterol Calculated 119 mg/dL (<100); Potassium 4.2 mmol/L (3.3-5.1); Sodium 141 mmol/L (135-145); Total Protein 7.3 g/dL (6.5-8.0); Triglycerides 119 mg/dL (<150)
[2024-06-19 09:57] LABS: Free T4 (Free Thyroxine) 0.93 ng/dL (0.71-1.85); Thyroid Stimulating Hormone 1.19 uIU/mL (0.32-4.0); Vitamin D 25-OH Total 125.8 ng/mL (>30)
[2024-06-19 10:03] LABS: Vitamin B12 433 pg/mL (200-900)
== END 2024-06-19 08:20 | disposition home or self-care (01) ==
LOC: HO.LAB 08:19
PROVIDERS: PCP Internal Medicine; Visit Provider Internal Medicine
DX: I10 Essential (primary) hypertension (principal); E78.00 Pure hypercholesterolemia, unspecified; E66.9 Obesity, unspecified; Z68.37 Body mass index [BMI] 37.0-37.9, adult; R73.02 Impaired glucose tolerance (oral); R91.8 Other nonspecific abnormal finding of lung field; J45.20 Mild intermittent asthma, uncomplicated; Z71.3 Dietary counseling and surveillance
CPT/HCPCS: 36415; 80053; 80061; 82306; 82607; 82746; 83036; 84439; 84443; 85025; 96127; 99212

== ENCOUNTER 2024-06-19 14:51 | Outpatient (AMB) | payer MEDICARE, SELFPAY ==
--- NOTE | 2024-06-19 14:43 | A.OFFPC_ITS ---
Vital Signs 06/19/24 14:44 Height 4 ft 11 in Weight 183 lb 6 oz BMI 37.0 BP 130/82 Blood Pressure Location Lt brachial Position Sitting Pulse 61 Pulse Source Pulse Oximeter Pulse Oximetry (%) 97 Oxygen Delivery Method Room Air Intake Visit Reasons: follow up [place] Required: No Accompanied by: Self / Same As Patient Allergies pollen extracts Allergy (Mild, Verified 06/19/24 14:45) Sneezing amlodipine Allergy (Unknown, Verified 06/19/24 14:45) Unknown house dust Allergy (Unknown, Verified 06/19/24 14:45) Unknown losartan Allergy (Unknown, Verified 06/19/24 14:45) Unknown hydrochlorothiazide Adverse Reaction (Intermediate, Verified 06/19/24 14:45) hyponatremia lisinopril Adverse Reaction (Intermediate, Verified 06/19/24 14:45) cough prednisone Adverse Reaction (Intermediate, Verified 06/19/24 14:45) swelling LE Medication List - Last Reconciled 06/19/24 by Ana Maria Malagon PA-C albuterol sulfate 90 mcg/actuation (Ventolin HFA) 2 puffs inhalation Q6H PRN alendronate 70 mg PO QWEEK 90 days cane As directed cholecalciferol (vitamin D3) 1,250 mcg PO QWEEK 90 days clotrimazole 1% 1 appl topical BID 4 weeks compress.stocking,knee,reg,lrg As directed diclofenac sodium 1% (Voltaren Arthritis Pain) 4 grams topical QID donepezil 5 mg PO BEDTIME lidocaine 5% 2 patches topical DAILY metoprolol succinate ER 25 mg PO DAILY nystatin 1 appl topical BID nystatin 1 appl topical BID pravastatin 20 mg PO DAILY [rollator walker with a seat As directed] Shower Chair with back umeclidinium-vilanterol 62.5-25 mcg/actuation (Anoro Ellipta) 1 inh inhalation DAILY Tobacco use date assessed: 06/19/24 Fall risk assessment: No Falls in past year Last assessed Fall Risk: 06/19/24 Dental Screening Dental Screen Date: 06/19/24 Did you have a dental visit in the last 12 months?: Yes Did you have a dental problem in the last 6 months where you did not have access to dental care?: No Was dental information given to patient?: Patient has dentist HPI follow up HPI Details 83-year-old obese female with hyperchole sterolemia, hypertension, asthma, impaired glucose tolerance last seen February 2024 coming in for follow up. In review of the notes patient [place] [facility] [place] continue on Anoro and saw but as needed not recommending additional chest CT and follow up in 1 year. Patient presents today with her daughter who translates for the duration of this visit. She tells us today she has not been using the steroid inhaler and only the albuterol as inhaler as needed. She uses the inhaler when she walks long distances or exercises almost daily. She does have occasional leg swelling that improves with elevation and exercise. Denies any acute concerns today. [facility] Medical History Pulmonary nodules Dyspnea Pulmonary scarring Rib pain on right side Lower extremity edema Right flank pain Swelling of lower leg Non-toxic multinodular goiter Osteoporosis Hyperparathyroidism Meningioma UTI (urinary tract infection) Confusion Impaired glucose tolerance Thyroid nodule Hypertension Asthma Obesity (BMI 30-39.9) Hypercholesterolemia Periorbital cellulitis of left eye Surgical History History of cholecystectomy History of thyroid surgery Family History Father CVD (cardiovascular disease) Myocardial infarction Mother Diabetes Vaginal cancer Sister Diabetes Son In good health Daughter In good health Daughter In good health Social History Housing: Apartment Alcohol intake: never Patient Tobacco Use Status: Never used Tobacco e-Cigarette/Vaping Use: Never Used Second Hand Smoke Exposure: No service: No Current occupational status: retired Cognitive needs: Yes (walker/cane) Hearing needs: No Vision needs: Yes (reading glasses) Questionnaire PHQ-9 Over the last 2 weeks, how often have you been bothered by any of the following problems? 1. Little interest or pleasure in doing things: not at all 2. Feeling down, depressed, or hopeless: not at all 3. Trouble falling or staying asleep, or sleeping too much: not at all 4. Feeling tired or having little energy: not at all 5. Poor appetite or overeating: not at all 6. Feeling bad about yourself - or that you are a failure or have let yourself or your family down: not at all 7. Trouble concentrating on things, such as reading the newspaper or watching television: not at all 8. Moving or speaking so slowly that other people could have noticed. Or the opposite - being so fidgety or restless that you have been moving around a lot more than usual: not at all 9. Thoughts that you would be better off or of hurting yourself in some way: not at all Total score: 0 Depression Screening Interpretation: Negative Depression Screening Done: Yes Source: Developed by Drs. Reed Park, Gifty Youngblood, Emre Vickers and colleagues, with an educational grace from [employer]. Thrive Questionnaire Date Thrive assessed: 06/19/24 I am a: Patient What is your living situation today?: I have a steady place to live Within the past 12 months, did the food you bought not last and you didn't have the money to get more?: Never true Within the past 12 months, did you worry whether your food would run out before you got money to buy more?: Never true Do you have trouble paying for medicines?: No Do you have trouble getting transportation to medical appointments?: No Do you have trouble paying your heating and electricity bill?: No Do you have trouble taking care of your child, family member or friend?: No Do you have trouble with day-to-day activities such as bathing, preparing meals, shopping, managing finances, etc.?: No Are you currently unemployed and looking for a job?: No Are you interested in more education?: No Please select the resources that you would like help with: None Currently or been in a relationship where the following occur: No concerns reported THRIVE Score: 0 AUDIT C Alcohol Use Questionnaire (AUDIT-C) 1. How often do you have a drink containing alcohol?: Never 3. How often do you have six or more drinks on one occasion?: Never Total Score: 0 LISANDRO-7 AMB Questionnaire LISANDRO-7 Date LISANDRO - 7 assessed: 06/19/24 Feeling nervous, anxious, or on edge: 0 = Not at all Not being able to stop or control worryin = Not at all Worrying too much about different things: 0 = Not at all Trouble relaxin = Not at all Being so restless that it is hard to sit still: 0 = Not at all Becoming easily annoyed or irritable: 0 = Not at all Feeling afraid as if something awful might happen: 0 = Not at all Total LISANDRO-7 score (0-4 normal; 5-9 mild; 10-14 moderate; 15-21 severe): 0 Source: Developed by Drs. Reed Park, Gifty Youngblood, Emre Vickers and colleagues, with an educational grace from [employer]. Review of Systems Const Denies body aches, Denies chills, Denies fever(s) and Denies poor appetite Eyes Reports no additional complaints Card Denies chest pain, Denies syncope and Denies dyspnea Resp Denies cough and Denies dyspnea GI Denies abdominal pain, Denies nausea and Denies vomiting Reports no additional complaints Musc Reports no additional complaints and Denies abnormal gait Skin/Breast Reports system reviewed and no additional complaints, except as documented Neuro Denies abnormal gait and Denies syncope Psych Reports no additional complaints Physical exam (Primary Care) Vital Signs: Last Vital Signs Pulse 61 06/19/24 14:44 BP 130/82 06/19/24 14:44 Pulse Ox 97 06/19/24 14:44 Oxygen Delivery Method Room Air 06/19/24 14:44 BMI result Body Mass Index 37.0 Tobacco/Smoking Status: Tobacco use Status Tobacco use date assessed 06/19/24 06/19/24 14:51 Patient Tobacco Use Status Never used Tobacco 06/19/24 14:51 e-Cigarette/Vaping Use Never Used 06/19/24 14:51 PHQ-9: PHQ-9 Score PHQ-9: Total score 0 06/19/24 14:51 Depression Screening Interpretation: Negative Thrive Assessment: Date of Thrive Assessment Date Thrive assessed 06/19/24 06/19/24 14:51 Currently or been in a relationship where the following occur: No concerns reported Const General: cooperative, healthy appearing, comfortable and no acute distress Orientation/consciousness: patient oriented x3 HENMT Head: Yes normocephalic Ears: hearing grossly normal bilaterally General nose exam: Normal external nose present Eyes General: appearance normal, both eyes and all related structures Conjunctivae: conjunctivae normal Neck Neck: Yes full ROM and Yes no lymphadenopathy Resp Effort & Inspection: normal respiratory effort Auscultation: clear to auscultation bilaterally, no crackles, no rales, no rhonchi and no wheezes Cardio Rate: regular rate Rhythm: regular rhythm Skin General skin exam: no rashes or lesions noted Neuro General: patient oriented x3 Gait exam (Neuro): Normal gait present Extrem General: Yes normal to inspection, Yes full ROM and No edema Psych Affect: normal affect Attitude: cooperative Insight: Good insight present (Psych) Judgement: Good judgement present (Psych) Coding Level of Care Code Est Pt Level 3 (15477) Diagnoses Pulmonary nodules R91.8 Impaired glucose tolerance R73.02 Essential hypertension I10 Hypertension type: essential hypertension Mild intermittent asthma without complication J45.20 Asthma severity: mild Asthma persistence: intermittent Asthma complication type: uncomplicated Obesity (BMI 30-39.9) E66.9 Hypercholesterolemia E78.00 Assessment & Plan Assessment & Plan (1) Pulmonary nodules: Comment: May 2023 CT scan New 1 cm nodules in the RLL Code(s): R91.8 - Other nonspecific abnormal finding of lung field Category: Medical Plan: Seen by pulmonology advised no more repeat CTs and follow up in 1 year. (2) Impaired glucose tolerance: Code(s): R73.02 - Impaired glucose tolerance (oral) Category: Medical Plan: Decrease the amount of carbohydrates such as pasta, bread, rice, and potatoes and limit the amount of sweets. Although fruits are generally healthy they should be eaten in moderation as they are still high in sugar. A1c 5.4% on last labs. (3) Hypertension: Code(s): I10 - Essential (primary) hypertension Category: Medical Qualifiers: Hypertension type: essential hypertension Qualified Code(s): I10 - Essential (primary) hypertension Plan: Continue on current blood pressure medication. Avoid salt intake and encourage healthy diet and regular exercise. Blood pressure at goal today 130/82. (4) Asthma: Comment: PFTs with mild COPD Code(s): J45.909 - Unspecified asthma, uncomplicated Category: Medical Qualifiers: Asthma severity: mild Asthma persistence: intermittent Asthma complication type: uncomplicated Qualified Code(s): J45.20 - Mild intermittent asthma, uncomplicated Plan: Asthma currently controlled on present medications. Continue to follow with pulmonology currently on Anoro daily and albuterol as needed. Avoid triggers such as allergies. Patient has not been taking the Anoro inhaler. Strongly advised to start taking this medication and be sure to rinse out the mouth after using. (5) Obesity (BMI 30-39.9): Code(s): E66.9 - Obesity, unspecified Category: Medical Plan: Healthy diet and regular exercise is encouraged. (6) Hypercholesterolemia: Code(s): E78.00 - Pure hypercholesterolemia, unspecified Category: Medical Plan: Avoid foods that are high in cholesterol such as red meat, fried foods, eggs and baked goods. Triglyceride goal of less than 150 and LDL goal of less than 130. Continue on pravastatin 20 mg. Cholesterol at goal on last labs patient was provided with informational packet on foods to avoid for cholesterol. Plan This note was constructed using voice recognition software. While every effort has been made to ensure accuracy and automobile taillight assembler, still areas may have been included sometimes these areas may affect the content or meeting of the given symptoms. Total time spent caring for the patient today was 20 minutes. This includes time spent before the visit reviewing the chart, time spent during the visit, and time spent after the visit and documentation.
[2024-06-19 14:44] VITALS: BP 130/82; PULSE 61; O2SAT 97; BMI 37.0
== END 2024-06-19 15:15 | disposition home or self-care (01) ==
PROVIDERS: PCP Internal Medicine
DX: R91.8 Other nonspecific abnormal finding of lung field (principal); R73.02 Impaired glucose tolerance (oral); I10 Essential (primary) hypertension; Z68.37 Body mass index [BMI] 37.0-37.9, adult; E66.9 Obesity, unspecified; J45.20 Mild intermittent asthma, uncomplicated; E78.00 Pure hypercholesterolemia, unspecified

== ENCOUNTER 2024-06-24 13:15 | Outpatient (AMB) | payer MEDICARE, SELFPAY ==
[2024-06-24 13:45] VITALS: BP 126/80; PULSE 52; TEMP 36.8; O2SAT 96; BMI 36.6
--- NOTE | 2024-06-24 13:45 | AM.OFFWIN_ITS ---
Intake Vital Signs 06/24/24 13:45 Height 4 ft 11 in Weight 181 lb BMI 36.6 BP 126/80 Blood Pressure Location Lt brachial Position Sitting Pulse 52 Pulse Source Pulse Oximeter Temp 98.2 F Temp Source Oral Pulse Oximetry (%) 96 Oxygen Delivery Method Room Air Intake Visit Reasons: EP rash around eyes Intake Note: Pt is here today c/o bilateral eyes rash x2days Patient Tobacco Use Status: Current someday Tobacco user Allergies pollen extracts Allergy (Mild, Verified 06/24/24 13:47) Sneezing amlodipine Allergy (Unknown, Verified 06/24/24 13:47) Unknown house dust Allergy (Unknown, Verified 06/24/24 13:47) Unknown losartan Allergy (Unknown, Verified 06/24/24 13:47) Unknown hydrochlorothiazide Adverse Reaction (Intermediate, Verified 06/24/24 13:47) hyponatremia lisinopril Adverse Reaction (Intermediate, Verified 06/24/24 13:47) cough prednisone Adverse Reaction (Intermediate, Verified 06/24/24 13:47) swelling LE HPI HPI Comments History of Present Illness Details Patient presents with daughter for rash Rash located around her eyes It was very red and swollen yesterday Patient itching area Started on L side and moving to R side Nothing new; soap, lotion, foods or make up Daughter said she has had this once and beleived due to sunscreen sensitivity in past No SOB, difficulty swallowing or throat tightness Daughter told her to wash face and use eucerin cream PFSH Medical History Pulmonary nodules Dyspnea Pulmonary scarring Rib pain on right side Lower extremity edema Right flank pain Swelling of lower leg Non-toxic multinodular goiter Osteoporosis Hyperparathyroidism Meningioma UTI (urinary tract infection) Confusion Impaired glucose tolerance Thyroid nodule Hypertension Asthma Obesity (BMI 30-39.9) Hypercholesterolemia Periorbital cellulitis of left eye Surgical History History of cholecystectomy History of thyroid surgery Family History Father CVD (cardiovascular disease) Myocardial infarction Mother Diabetes Vaginal cancer Sister Diabetes Son In good health Daughter In good health Daughter In good health Social History Housing: Apartment Alcohol intake: never Patient Tobacco Use Status: Current someday Tobacco user e-Cigarette/Vaping Use: Never Used Second Hand Smoke Exposure: No service: No Current occupational status: retired Cognitive needs: Yes (walker/cane) Hearing needs: No Vision needs: Yes (reading glasses) Review of Systems Const Denies chills and Denies fever(s) ENT Denies nasal congestion and Denies sore throat Resp Denies cough Skin/Breast Reports dry skin, Reports pruritus, Reports erythema and Reports rash Physical Exam Vital Signs: Last Vital Signs Temp 98.2 F 06/24/24 13:45 Pulse 52 06/24/24 13:45 BP 126/80 06/24/24 13:45 Pulse Ox 96 06/24/24 13:45 Oxygen Delivery Method Room Air 06/24/24 13:45 BMI result Body Mass Index 36.6 General: Non-toxic, NAD. Speaking full sentences. Skin: Warm dry throughout. L inferior orbit has erythematous slightly edematous dry circular ring. There is a well defined border. Less severe under R eye. No upper eyelid edema or erythema. No other facial edema or rash Eye: EOMI, PERRL HENT: Airway patent. Uvula midline. No pharyngeal erythema or edema. No SECURITY SOFTWARE ENGINEER. Respiratory: No respiratory distress Neurology: Alert. No aphasia or facial droop. Gait without abnormality Psych: Good mood and affect Assessment & Plan Assessment & Plan (1) Periorbital dermatitis: Code(s): L30.9 - Dermatitis, unspecified Plan: Pt seen and evaluated SHe will continue to use Eucerin cream to area She can not take prednisone due to allergy Will avoid topical steroids near eyes Will call PCP for follow up Pt and daughter expressed verbal understanding and had no additional questions at this time Coding Level of Care Code Est Pt Level 3 (14319) Diagnoses Periorbital dermatitis L30.9
--- OUTSIDE RECORDS SUMMARY | 2024-06-24 15:36 | XMS_ITS | Patient Health Record ---
[facility] Address [address] [place] [address] Care Team Providers Care Tester Waste Disposal Leakage Name Role Phone Elliott Howell Primary Care Provider Alex Castillo Unavailable [phone] Allergies No Known Allergies Reason For Referral [...] 30 days Active Vitamin D3 1.25 MG (40883 UT) 1 capsule Orally for 30 day(s) [...] W/U Status Risk Notes Problem Atherosclerosis of [place] arteries of the extremities ([id number]) Atherosclerosis of [place] artery of both lower extremities, with unspecified presence of clinical manifestation (I70.203) Active confirmed Vital Signs Blood pressure diastolic 80 mm Hg 01/22/2024 Height 5 ft 4 in in 01/22/2024 Blood pressure systolic 120 mm Hg 01/22/2024 Weight 181 lbs 01/22/2024 BMI 31.07 kg/m2 01/22/2024 Procedures Procedure Date Ordered Date Performed Result Body Sit e 67599-LKOHNDR NAIL, 1-5 01/22/2024 N/A 82645-AFCO SKIN LESIONS, OVER 4 01/22/2024 N/A V6300-MDIXHCQL DYSTROPHIC NAILS ANY # 01/22/2024 N/A Encounters Encounter Location Date Provider Diagnosis [facility] [place] [address] [place] [address] 01/22/2024 Alex Antonio Atherosclerosis of [place] artery of both lower extremities, with unspecified presence of clinical manifestation I70.203 ; Tinea unguium B35.1 ; Pain in right toe(s) M79.674 ; Pain in left toe(s) M79.675 and Tinea pedis of both feet B35.3 Assessments Encounter Date Diagnosis (ICD Code) Assessment Notes Treatment Notes Treatment Clinical Notes Section Notes 01/22/2024 Tinea unguium (ICD-10 - B35.1) 01/22/2024 Atherosclerosis of [place] artery of both lower extremities, with unspecified presence of clinical manifestation (ICD-10 - I70.203) 01/22/2024 Pain in right toe(s) (ICD-10 - M79.674) 01/22/2024 Pain in left toe(s) (ICD-10 - M79.675) 01/22/2024 Tinea pedis of both feet (ICD-10 - B35.3) Plan Of Treatment Pending Test Test Name Order Date 54004-HEAKEPP NAIL, 1-5 04/11/2022 03701-WVMYGLO NAIL, 1-5 07/28/2022 38041-DNQVTWF NAIL, 1-5 04/30/2023 12884-ZZRLEZT NAIL, 1-5 01/22/2024 32473-TCKB SKIN LESIONS, OVER 4 01/22/20 24 12399-ZTBL SKIN LESIONS, OVER 4 04/30/20 23 44347-OSSC SKIN LESIONS, OVER 4 07/28/19 23 32168-VUPB SKIN LESIONS, 2 TO 4 04/11/20 22 K6608-HZMVBFBM DYSTROPHIC NAILS ANY # Z3424-AQYUFLGF DYSTROPHIC NAILS ANY # W7255-VNFHHLSI DYSTROPHIC NAILS ANY # W7721-LOGQEVBS DYSTROPHIC NAILS ANY # Insurance Providers Payer Name Payer Address Payer Phone Subscriber Number Group Number Insured Name Patient Relationship to Insured Coverage Start Date Coverage End Date [employer] [address] [place] [phone] [id number] Elisa Falcon Self - patient is the insured Medical (General) History Medical History History ICD Code Alzheimers disease Arthritis Back pain Dementia Gout High blood pressure Osteoporosis CAD Surgical History Surgery Date(Month/Year) Hospitalization History Reason Date(Month/Year) Years a go can't remember
--- OUTSIDE RECORDS SUMMARY | 2024-06-24 15:36 | XMS_ITS ---
Author Organization [facility] Address [address] [place] [address] Care Team Providers Care Obstetrics Tech Name Role Phone Elliott Howell Primary Care Provider Alex Castillo Unavailable [phone] Allergies No Known Allergies REASON FOR VISIT At Risk Footcare, Painful Nail(s) aggrevated by shoes and causing difficulty standing/walking., Skin problem(s) Medications Medication SIG (Take, Route, Frequency, Duration) Notes Start Date End Date Status Vitamin D3 1.25 MG (20534 UT) 1 capsule Orally for 30 day(s) [...] Ordered Date Performed Result Body Sit e 15544-ZFEPAEM NAIL, 1-5 04/30/2023 N/A 80525-RQRZ SKIN LESIONS, OVER 4 04/30/2023 N/A R0196-WOYFAREC DYSTROPHIC NAILS ANY # 04/30/2023 N/A Encounters Encounter Location Date Provider Diagnosis [facility] [address] [address] 04/30/2023 Alex Antonio Atherosclerosis of [place] artery of both lower extremities, with unspecified presence of clinical manifestation I70.203 ; Xerosis cutis L85.3 ; Tinea unguium B35.1 ; Pain in right toe(s) M79.674 and Pain in left toe(s) M79.675 Assessments Encounter Date Diagnosis (ICD Code) Assessment Notes Treatment Notes Treatment Clinical Notes Section Notes 04/30/2023 Atherosclerosis of [place] artery of both lower extremities, with unspecified [...] days Pending Test Test Name Order Date 55599-DYQNAZZ NAIL, 1-5 04/30/2023 44108-LCPC SKIN LESIONS, OVER 4 04/30/20 23 R3492-GOIGLOOH DYSTROPHIC NAILS ANY # Next Appt Details Follow Up: prn, Reason: Procedure Notes * Category Sub-Category Detail Notes Keratoma Treatment Parring or Cutting o f Benign Hyperkeratotic Lesion(s) 46255 ( >4 Lesions) - The Benign hyperkeratotic [...] used for any petechial bleeding as necessary (58729). Patient chooses, no pharmaceutical tx Nail Reduction Nail Reduction Trimming of dyst rophic nails performed to reduce/remove overall nail length and girth, by manual and electrical means with use of a nail nipper and/or dremel, to more viable healthy nail plate or bed tissue 6-10 (F7858-P5) Progress Notes * Elisa ASHTONDOB:1940 (82 yo F)Acc No.[id number]:04/30/2023 Progress Note Patient:?Elisa Ashton Provider:?Alex Antonio DPM :1940???Age:82 Y???Sex:Female D ate:04/30/2023 Address:[address] [place] [address] Pcp:Elliott Howell Subjective: * Chief Complaints: * [...] Orally Once a dayVitamin D3 1.25 MG (39937 UT) Capsule 1 capsule Orally Ammonium Lactate [...] Once a dayTaking Vitamin D3 1.25 MG (97962 UT) Capsule 1 capsule Orally Taking Ammonium [...] Response to treatment,Unchanged due to illness?2.?Atherosclerosis of [place]cock artery of both lower extremities, with unspecified presence of clinical manifestation - I70.203?3.?Tinea unguium - B35.1?4.?Pain in right toe(s) - M79.674?5.?Pain in left toe(s) - M79.675? Plan: * Treatment: 2.?Atherosclerosis of [place] artery of both lower extremities, with unspecified presence of clinical manifestation?Procedure: 96476-ERTQ SKIN LESIONS, OVER 4 ?Procedure: O3983-HLFDCSXW DYSTROPHIC NAILS ANY # 3.?Tinea unguium?Procedure: 04173-VXAQPJD NAIL, 1-5 * Procedures:?Debride Nails 1-5:?Procedure:?Nail debridement performed extensively to reduce/remove overall nail length and girth, subungual debris, and necrotic tissue, by manual and electrical means with use of a nail nipper and/or dremel, to more viable healthy nail plate or bed tissue 1-5. Silver nitrate used for any petechial bleeding as necessary (55233). Patient chooses, no pharmaceutical tx.?Keratoma Treatment:?Parring or Cutting of Benign Hyperkeratotic Lesion(s)?87088 ( >4 Lesions) - The Benign hyperkeratotic [...] bed tissue 6-10 (G0127- Q8).? * Procedure Codes:?80472 TRIM SKIN LESIONS, OVER 4, Modifiers: XS , G4S5846 TRIMMING DYSTROPHIC NAILS ANY #, Modifiers: XS , [id number] DEBRIDE NAIL, 1-5, Modifiers: XS * Preventive [...] Sign off status: Completed true * Provider:?Alex Antoino DPM Date:?2022 Generated for Tiki arthur/Dao/Evy on:?06/24/2024 03:36 PM EST History and Physical Notes * HPI [...]
== END 2024-06-24 14:09 | disposition home or self-care (01) ==
PROVIDERS: PCP Internal Medicine; Visit Provider Physician Assistant
DX: L30.9 Dermatitis, unspecified (principal)

== ENCOUNTER → 2024-06-24 13:15 | Outpatient (BNVA) | payer MEDICARE, SELFPAY | PROVIDERS: PCP Internal Medicine; Visit Provider Physician Assistant | DX: L30.9 Dermatitis, unspecified (principal) | CPT/HCPCS: 99212 ==

== ENCOUNTER 2024-06-26 14:19 | Outpatient (AMB) | payer MEDICARE, SELFPAY ==
--- NOTE | 2024-06-26 14:29 | MHC.PC.OV ---
Vital Signs 06/26/24 14:32 Height 4 ft 11 in Weight 180 lb 8 oz BMI 36.5 BP 160/72 H Blood Pressure Location Lt brachial Position Sitting Pulse 65 Pulse Source Pulse Oximeter Pulse Oximetry (%) 96 Oxygen Delivery Method Room Air Intake Visit Reasons: f/u walk in rash around eyes Intake Note: Patient is here to follow up on Rash around eyes. Provider Education Specialist Required: No City Bailiff: Not Required per policy Accompanied by: Self / Same As Patient Allergies pollen extracts Allergy (Mild, Verified 06/26/24 14:50) Sneezing amlodipine Allergy (Unknown, Verified 06/26/24 14:50) Unknown house dust Allergy (Unknown, Verified 06/26/24 14:50) Unknown losartan Allergy (Unknown, Verified 06/26/24 14:50) Unknown hydrochlorothiazide Adverse Reaction (Intermediate, Verified 06/26/24 14:50) hyponatremia lisinopril Adverse Reaction (Intermediate, Verified 06/26/24 14:50) cough prednisone Adverse Reaction (Intermediate, Verified 06/26/24 14:50) swelling LE shrimp Allergy (Mild, Uncoded 06/26/24 14:50) Swelling sunscreen Allergy (Mild, Uncoded 06/26/24 14:50) Rash Medication List - Last Reconciled 06/26/24 by Ana Maria Malagon PA-C albuterol sulfate 90 mcg/actuation (Ventolin HFA) 2 puffs inhalation Q6H PRN alendronate 70 mg PO QWEEK 90 days cane As directed cholecalciferol (vitamin D3) 1,250 mcg PO QWEEK 90 days compress.stocking,knee,reg,lrg As directed diclofenac sodium 1% (Voltaren Arthritis Pain) 4 grams topical QID diphenhydramine HCl (Benadryl Allergy) 25 mg PO BEDTIME PRN donepezil 5 mg PO BEDTIME hydrocortisone 1% (Cortisone (hydrocortisone)) 1 appl topical BID PRN metoprolol succinate ER 25 mg PO DAILY nystatin 1 appl topical BID nystatin 1 appl topical BID pravastatin 20 mg PO DAILY [rollator walker with a seat As directed] Shower Chair with back umeclidinium-vilanterol 62.5-25 mcg/actuation (Anoro Ellipta) 1 inh inhalation DAILY Tobacco use date assessed: 06/19/24 Fall risk assessment: No Falls in past year Last assessed Fall Risk: 06/26/24 Dental Screening Dental Screen Date: 06/19/24 HPI f/u walk in rash around eyes HPI Details 83-year-old female with past medical history of hypercholesterolemia, hypertension, asthma, impaired glucose tolerance last seen 06/19/2024 coming in for follow up.?[place] [facility] [place] for a rash around her eyes advised to continue to use Eucerin and follow up with PCP. Who presents today with her daughter who is the distilling department supervisor for the duration of this visit. Formal translation was offered and declined. The rash on the face persists and is very itchy. The daughter mentions she has an allergy to sunscreen and yesterday she noticed the new facial cream she bought had SPF in the lotion which is likely the culprit. She discontinued this cream and continues to use Aquaphor and occasionally Benadryl for symptom management. [facility] Medical History Pulmonary nodules Dyspnea Pulmonary scarring Rib pain on right side Lower extremity edema Right flank pain Swelling of lower leg Non-toxic multinodular goiter Osteoporosis Hyperparathyroidism Meningioma UTI (urinary tract infection) Confusion Impaired glucose tolerance Thyroid nodule Hypertension Asthma Obesity (BMI 30-39.9) Hypercholesterolemia Periorbital cellulitis of left eye Surgical History History of cholecystectomy History of thyroid surgery Family History Father CVD (cardiovascular disease) Myocardial infarction Mother Diabetes Vaginal cancer Sister Diabetes Son In good health Daughter In good health Daughter In good health Social History Housing: Apartment Alcohol intake: never Patient Tobacco Use Status: Current someday Tobacco user e-Cigarette/Vaping Use: Never Used Second Hand Smoke Exposure: No service: No Current occupational status: retired Cognitive needs: Yes (walker/cane) Hearing needs: No Vision needs: Yes (reading glasses) Questionnaire PHQ-9 Over the last 2 weeks, how often have you been bothered by any of the following problems? 1. Little interest or pleasure in doing things: not at all 2. Feeling down, depressed, or hopeless: not at all 3. Trouble falling or staying asleep, or sleeping too much: not at all 4. Feeling tired or having little energy: not at all 5. Poor appetite or overeating: not at all 6. Feeling bad about yourself - or that you are a failure or have let yourself or your family down: not at all 7. Trouble concentrating on things, such as reading the newspaper or watching television: not at all 8. Moving or speaking so slowly that other people could have noticed. Or the opposite - being so fidgety or restless that you have been moving around a lot more than usual: not at all 9. Thoughts that you would be better off or of hurting yourself in some way: not at all Total score: 0 Depression Screening Interpretation: Negative Depression Screening Done: Yes 50003 - PHQ-9 Billing: Yes Source: Developed by Drs. Reed Park, Gifty Youngblood, Emre Vickers and colleagues, with an educational grace from [employer]. Thrive Questionnaire Date Thrive assessed: 06/19/24 LISANDRO-7 AMB Questionnaire LISANDRO-7 Date LISANDRO - 7 assessed: 06/19/24 Source: Developed by Drs. Reed Park, Gifty Youngblood, Emre Vickers and colleagues, with an educational grace from [employer]. Review of Systems Const Denies body aches, Denies chills, Denies fever(s), Denies headache(s) and Denies poor appetite Eyes Reports no additional complaints ENT Denies headache(s) Card Denies chest pain, Denies lightheadedness and Denies dyspnea Resp Denies cough and Denies dyspnea GI Reports no additional complaints Reports no additional complaints Musc Reports no additional complaints and Denies abnormal gait Skin/Breast Reports system reviewed and no additional complaints, except as documented Neuro Denies abnormal gait and Denies headache(s) Psych Reports no additional complaints Physical exam (Primary Care) Vital Signs: Last Vital Signs Pulse 65 06/26/24 14:32 BP 160/72 H 06/26/24 14:32 Pulse Ox 96 06/26/24 14:32 Oxygen Delivery Method Room Air 06/26/24 14:32 BMI result Body Mass Index 36.5 Tobacco/Smoking Status: Tobacco use Status Tobacco use date assessed 06/19/24 06/26/24 14:30 Patient Tobacco Use Status Current someday Tobacco 06/26/24 14:30 e-Cigarette/Vaping Use Never Used 06/26/24 14:30 PHQ-9: PHQ-9 Score PHQ-9: Total score 0 06/26/24 14:38 Depression Screening Interpretation: Negative Thrive Assessment: Date of Thrive Assessment Date Thrive assessed 06/19/24 06/26/24 14:30 Const General: cooperative, healthy appearing, comfortable and no acute distress Orientation/consciousness: patient oriented x3 HENMT Head: Yes normocephalic Ears: hearing grossly normal bilaterally General nose exam: Normal external nose present Eyes General: appearance normal, both eyes and all related structures Conjunctivae: conjunctivae normal Neck Neck: Yes full ROM and Yes no lymphadenopathy Resp Effort & Inspection: normal respiratory effort Auscultation: clear to auscultation bilaterally, no crackles, no rales, no rhonchi and no wheezes Cardio Rate: regular rate Rhythm: regular rhythm Skin Other: Erythema around bilateral eyes with dry appearing skin Neuro General: patient oriented x3 Gait exam (Neuro): Normal gait present Extrem General: Yes normal to inspection, Yes full ROM and No edema Psych Affect: normal affect Attitude: cooperative Insight: Good insight present (Psych) Judgement: Good judgement present (Psych) Office Procedures Flu Questionnaire Does the patient have a severe egg allergy?: No Immunizations Fluarix Triv [id number] (PF) 45 mcg (15 mcg x 3)/0.5 mL IM syringe Performing Provider: Ana Maria Malagon PA-C [place] [facility] [place] [facility] Documented (not given) by: MARISOL Smith on 06/26/24 14:38 Reason Not Given: Patient Refused Coding Level of Care Code Est Pt Level 4 (65067) Diagnoses Periorbital dermatitis L30.9 Essential hypertension I10 Hypertension type: essential hypertension Additional Codes PHQ-9 - 69591 - PHQ-9 Billing: Yes ([id number]) Assessment & Plan Assessment & Plan (1) Periorbital dermatitis: Code(s): L30.9 - Dermatitis, unspecified Category: Medical Plan: Rash has not improved or worsened with the aquaphor. She does complain of itching however given the donepezil she can not be on hydroxyzine due to QT prolongation. We will order for Benadryl to be taken as needed for itchiness. Also given very low dose of hydrocortisone cream advised patient to try on her arm before applying to her face. Discontinue all SPF products and discussed avoidance in the future. Rash we will likely improve with removal of the irritant. Follow up as needed for this concern and please reach out to the office if rash worsens or does not improve. (2) Hypertension: Code(s): I10 - Essential (primary) hypertension Category: Medical Qualifiers: Hypertension type: essential hypertension Qualified Code(s): I10 - Essential (primary) hypertension Plan: Patient has previous diagnosis of hypertension and is on metoprolol 25 mg daily however blood pressures have been well managed prior to this visit. Blood pressure mildly elevated today advised patient to follow up with nurse navigator in 2 weeks for blood pressure check and can consider increasing metoprolol or adding additional medication at the time. Avoid salt intake and encourage healthy diet and regular exercise. Plan This note was constructed using voice recognition software. While every effort has been made to ensure accuracy and construction trench digger, still areas may have been included sometimes these areas may affect the content or meeting of the given symptoms. Total time spent caring for the patient today was 20 minutes. This includes time spent before the visit reviewing the chart, time spent during the visit, and time spent after the visit and documentation. Orders: Orders Influenza [id number] Immunization Today Z23 - Encounter for immunization Medications: New hydrocortisone 1% (Cortisone (hydrocortisone)) 1 appl topical BID PRN 28.35 grams 0RF skin irritation diphenhydramine HCl (Benadryl Allergy) 25 mg PO BEDTIME PRN 20 tabs 0RF itching
[2024-06-26 14:32] VITALS: BP 160/72; PULSE 65; O2SAT 96; BMI 36.5
== END 2024-06-26 15:02 | disposition home or self-care (01) ==
PROVIDERS: PCP Internal Medicine
DX: L30.9 Dermatitis, unspecified (principal); I10 Essential (primary) hypertension; Z23 Encounter for immunization

== ENCOUNTER → 2024-06-26 14:19 | Outpatient (BNVA) | payer MEDICARE, SELFPAY | PROVIDERS: PCP Internal Medicine | DX: L30.9 Dermatitis, unspecified (principal); E78.00 Pure hypercholesterolemia, unspecified; I10 Essential (primary) hypertension; J45.909 Unspecified asthma, uncomplicated; Z28.21 Immunization not carried out because of patient refusal | CPT/HCPCS: 90471; 96127; 99212 ==

== ENCOUNTER 2024-10-23 14:20 | Outpatient (AMB) | payer MEDICARE, SELFPAY ==
[2024-10-23 14:21] VITALS: BP 130/78; PULSE 67; O2SAT 96; BMI 37.4
--- NOTE | 2024-10-23 14:21 | A.OFFPC_ITS ---
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 Required: No Accompanied by: Self / Same As Patient Allergies pollen extracts Allergy (Mild, Verified 10/23/24 14:22) Sneezing amlodipine Allergy (Unknown, Verified 10/23/24 14:22) Unknown house dust Allergy (Unknown, Verified 10/23/24 14:22) Unknown losartan Allergy (Unknown, Verified 10/23/24 14:22) Unknown hydrochlorothiazide Adverse Reaction (Intermediate, Verified 10/23/24 14:22) hyponatremia lisinopril Adverse Reaction (Intermediate, Verified 10/23/24 14:22) cough prednisone Adverse Reaction (Intermediate, Verified 10/23/24 14:22) swelling LE shrimp Allergy (Mild, Uncoded 10/23/24 14:22) Swelling sunscreen Allergy (Mild, Uncoded 10/23/24 14:22) Rash Tobacco use date assessed: 10/23/24 Fall risk assessment: No Falls in past year Last assessed Fall Risk: 10/23/24 Dental Screening Dental Screen Date: 10/23/24 Did you have a dental visit in the last 12 months?: No Did you have a dental problem in the last 6 months where you did not have access to dental care?: No Was dental information given to patient?: No [facility] Medical History Pulmonary nodules Dyspnea Pulmonary scarring Rib pain on right side Lower extremity edema Right flank pain Swelling of lower leg Non-toxic multinodular goiter Osteoporosis Hyperparathyroidism Meningioma UTI (urinary tract infection) Confusion Impaired glucose tolerance Thyroid nodule Hypertension Asthma Obesity (BMI 30-39.9) Hypercholesterolemia Periorbital cellulitis of left eye Surgical History History of cholecystectomy History of thyroid surgery Family History Father CVD (cardiovascular disease) Myocardial infarction Mother Diabetes Vaginal cancer Sister Diabetes Son In good health Daughter In good health Daughter In good health Social History Housing: Apartment Alcohol intake: never Patient Tobacco Use Status: Current someday Tobacco user e-Cigarette/Vaping Use: Never Used Second Hand Smoke Exposure: No service: No Current occupational status: retired Cognitive needs: Yes (walker/cane) Hearing needs: No Vision needs: Yes (reading glasses) Questionnaire PHQ-9 Over the last 2 weeks, how often have you been bothered by any of the following problems? 1. Little interest or pleasure in doing things: not at all 2. Feeling down, depressed, or hopeless: not at all 3. Trouble falling or staying asleep, or sleeping too much: not at all 4. Feeling tired or having little energy: not at all 5. Poor appetite or overeating: not at all 6. Feeling bad about yourself - or that you are a failure or have let yourself or your family down: not at all 7. Trouble concentrating on things, such as reading the newspaper or watching television: not at all 8. Moving or speaking so slowly that other people could have noticed. Or the opposite - being so fidgety or restless that you have been moving around a lot more than usual: not at all 9. Thoughts that you would be better off or of hurting yourself in some way: not at all Total score: 0 Depression Screening Interpretation: Negative Depression Screening Done: Yes 35997 - PHQ-9 Billing: Yes Source: Developed by Drs. Reed Park, Gifty Youngblood, Emre Vickers and colleagues, with an educational grace from [employer]. Thrive Questionnaire Date Thrive assessed: 10/23/24 I am a: Patient What is your living situation today?: I have a steady place to live Within the past 12 months, did the food you bought not last and you didn't have the money to get more?: Never true Within the past 12 months, did you worry whether your food would run out before you got money to buy more?: Never true Do you have trouble paying for medicines?: No Do you have trouble getting transportation to medical appointments?: No Do you have trouble paying your heating and electricity bill?: No Do you have trouble with day-to-day activities such as bathing, preparing meals, shopping, managing finances, etc.?: Yes Are you currently unemployed and looking for a job?: No Are you interested in more education?: No Please select the resources that you would like help with: Food Currently or been in a relationship where the following occur: No concerns reported THRIVE Score: 0 AUDIT C Alcohol Use Questionnaire (AUDIT-C) 1. How often do you have a drink containing alcohol?: Never 3. How often do you have six or more drinks on one occasion?: Never Total Score: 0 LISANDRO-7 AMB Questionnaire LISANDRO-7 Date LISANDRO - 7 assessed: 10/23/24 Feeling nervous, anxious, or on edge: 0 = Not at all Not being able to stop or control worryin = Not at all Worrying too much about different things: 0 = Not at all Trouble relaxin = Not at all Being so restless that it is hard to sit still: 0 = Not at all Becoming easily annoyed or irritable: 0 = Not at all Feeling afraid as if something awful might happen: 0 = Not at all Total LISANDRO-7 score (0-4 normal; 5-9 mild; 10-14 moderate; 15-21 severe): 0 Source: Developed by Drs. Reed Park, Gifty Youngblood, Emre Vickers and colleagues, with an educational grace from [employer]. Physical exam (Primary Care) Vital Signs: Last Vital Signs Pulse 67 10/23/24 14:21 BP 130/78 10/23/24 14:21 Pulse Ox 96 10/23/24 14:21 Oxygen Delivery Method Room Air 10/23/24 14:21 BMI result Body Mass Index 37.4 Tobacco/Smoking Status: Tobacco use Status Tobacco use date assessed 10/23/24 10/23/24 14:28 Patient Tobacco Use Status Current someday Tobacco 10/23/24 14:28 e-Cigarette/Vaping Use Never Used 10/23/24 14:28 PHQ-9: PHQ-9 Score PHQ-9: Total score 0 10/23/24 14:55 Depression Screening Interpretation: Negative Thrive Assessment: Date of Thrive Assessment Date Thrive assessed 10/23/24 10/23/24 14:28 Currently or been in a relationship where the following occur: No concerns reported Const General: alert; No acute distress Eyes Conjunctivae: conjunctivae normal Resp Auscultation: clear to auscultation bilaterally Cardio Rate: regular rate Rhythm: regular rhythm GI Inspection: Yes normal to inspection Extrem General: Yes normal to inspection and No edema Immunizations Tenivac (PF) 5 Lf unit-2 Lf unit/0.5 mL intramuscular suspension Performing Provider: Elliott Howell MD [place] [facility] [place] [facility] Administered by: Agnes Menezes CMA on 10/23/24 14:49 Dose Route Admin Location Dispensed Lot Number Expiration Date NDC Medical Claims Assistant 0.5 mL IM Right Deltoid 0.5 mL [id number] 08/16/26 [id number] [employer] VIS Given Date VIS Provided VIS Publication Date 10/23/24 Single Vaccine 21 Eligibility Eligibility Date Funding Source Not [facility] Eligible 10/23/24 Private Coding Level of Care Code Est Pt Level 4 (84762) Complex EM visit Add On G2211 Diagnoses Branch retinal vein occlusion of right eye H34.8312 Mild intermittent asthma without complication J45.20 Asthma complication type: uncomplicated Asthma persistence: intermittent Asthma severity: mild Essential hypertension I10 Hypertension type: essential hypertension Impaired glucose tolerance R73.02 Hypercholesterolemia E78.00 Obesity (BMI 30-39.9) E66.9 Additional Codes PHQ-9 - 46062 - PHQ-9 Billing: Yes ([id number]) Assessment & Plan Assessment & Plan (1) Branch retinal vein occlusion of right eye: Comment: December 2023 Code(s): H34.8312 - Tributary (branch) retinal vein occlusion, right eye, stable Category: Medical Plan: Patient has been seeing the inspector watch train and has recommended Avastin (2) Asthma: Comment: PFTs with mild COPD Code(s): J45.909 - Unspecified asthma, uncomplicated Category: Medical Qualifiers: Asthma complication type: uncomplicated Asthma persistence: intermittent Asthma severity: mild Qualified Code(s): J45.20 - Mild intermittent asthma, uncomplicated (3) Hypertension: Code(s): I10 - Essential (primary) hypertension Category: Medical Qualifiers: Hypertension type: essential hypertension Qualified Code(s): I10 - Esse ntial (primary) hypertension Plan: Continue with blood pressure medication. Decrease salt intake and exercise on metoprolol 25 mg once a day (4) Impaired glucose tolerance: Code(s): R73.02 - Impaired glucose tolerance (oral) Category: Medical Plan: Decrease the amount of carbohydrate intake, pasta, bread, rice and potatoes are all sugar and that is aside from all the sweet stuff, remember that fruits are good but they are Sweet also. (5) Hypercholesterolemia: Code(s): E78.00 - Pure hypercholesterolemia, unspecified Category: Medical Plan: Avoid fried foods, chicken skin, eggs, butter margarine, pastries and meat. Be it pork or beef they have a lot of cholesterol LDL goal of less than 100 and triglyceride of less than 150 on pravastatin 20 mg once a day (6) Obesity (BMI 30-39.9): Code(s): E66.9 - Obesity, unspecified Category: Medical Plan: Diet and exercise Plan History of Present Illness The patient is an 84-year-old female presenting for a follow-up regarding periorbital dermatitis and to address her multiple chronic conditions. The periorbital dermatitis was last noted during her visit on June 26, 2024. In terms of her chronic conditions, she has a history of essential hypertension, currently managed with metoprolol 25 mg once daily. Her hypercholesterolemia has an LDL reading of 119 mg/dL, and she is on pravastatin 20 mg daily, with a goal to reduce LDL to less than 100 mg/dL and triglycerides to less than 150 mg/dL. The patient also has impaired glucose tolerance, with a fasting blood sugar level of 105 mg/dL in June 2024, indicating a non-diabetic status but elevated glucose levels. She also has normal renal function and liver function and a hemoglobin A1c of 5.5%. The patient reports issues with asthma, which is managed with Anoro, though compliance with the regimen appears sporadic accordin g to her statements. She expresses reluctance to use Anoro daily. A recent ophthalmologic exam noted branch retinal vein occlusion in the right eye, associated with macular edema. Treatment with Avastin injections has been recommended. The patient is also noted to have a history of posterior vitreous detachment bilaterally. There is a history of hyperparathyroidism, pulmonary nodules, a meningioma treated in June 2022, and lumbar spinal stenosis. Bone density was last assessed in May 2024, revealing some osteoporosis; she takes alendronate once weekly. Health Maintenance - Blood pressure management with metoprolol 25 mg daily. - Cholesterol management with pravastatin 20 mg daily, LDL goal < 100 mg/dL. - Bone health monitored, alendronate once weekly for osteoporosis. - Compliance with vaccines: Tetanus due, others current. - Advising regular exercise and dietary modifications for weight management and glucose control. - Follow-ups with ophthalmology for retinal issues and planned Avastin injections. Social History - Lives independently and values autonomy. - Exhibits reluctance to adhere strictly to exercise and medication regimens. - Avoids dietary modifications, consuming foods like cakes, despite current glucose intolerance. Review of Systems - Eyes: Reports vision difficulties due to macular edema. - Respiratory: Reports feeling okay but noted non-compliance with Anoro for asthma. - Skin: Reports periorbital dermatitis, dry skin, and nail issues with improvement. Physical Exam Results - Labs: Fasting blood sugar 105 mg/dL, Hemoglobin A1c 5.5%, LDL 119 mg/dL. - Tests: Ophthalmology exam showing branch retinal vein occlusion OD, macular edema. Plan For periorbital dermatitis, I monitored her condition and ensured continuing improvements. Hypertension was addressed with metoprolol, and I reinforced the management of hypercholesterolemia with pravastatin. Impaired glucose tolerance was managed with lifestyle advice on diet and exercise. Ordered Avastin injections to manage the retinal vein occlusion and macular edema. Continued alendronate for osteoporosis. Advised increasing compliance with Anoro for asthma. Discussed generic options for cost-effective medication management. Patient was informed and verbally consented to the use of an ambient scribe for clinic note documentation during this visit. Discussion Notes During our discussion, I explained the current management strategy for her hypertension, hypercholesterolemia, and glucose levels, focusing on the recommendations provided. I discussed the progression of her retinal issues and the plan for ongoing Avastin injections, including the potential risks and benefits. I emphasized adherence to her asthma treatment with Anoro and potential benefits of regular use on her respiratory symptoms. Additionally, we went over her bone health plan, including continued use of alendronate. We reviewed her current vaccinations, discussed the necessity of a tetanus booster, and examined cost-saving options for medications. We planned further monitoring and follow-up as necessary to ensure her chronic conditions remain stable. Patient Instructions - Continue using metoprolol daily for blood pressure. - Take pravastatin as instructed and maintain dietary changes. - Follow the recommended exercise routine. - Use Anoro daily for asthma relief. - Attend scheduled ophthalmology appointments for planned Avastin treatment. - Avoid allergic triggers and maintain skin care regimen. - Stay vigilant with diabetes monitoring and dietary controls. - Consider cost-effective options for prescribed medications. - No more cakes, as sugar levels are high. - Await guidance on tetanus booster if due. Orders: Orders Complete Blood Count Auto Diff 6 Months I10 - Essential (primary) hypertension Hemoglobin A1c 6 Months I10 - Essential (primary) hypertension Vitamin D 25-OH Total 6 Months I10 - Essential (primary) hypertension Td Immunization Today Z23 - Encounter for immunization Comprehensive Met. Panel 6 Months I10 - Essential (primary) hypertension Free T4 (Free Thyroxine) 6 Months I10 - Essential (primary) hypertension Thyroid Stimulating Hormone 6 Months I10 - Essential (primary) hypertension UA CC w/rflx Micro + Cult 6 Months I10 - Essential (primary) hypertension, R30.0 - Dysuria Lipid Panel 6 Months E78.00 - Pure hypercholesterolemia, unspecified, I10 - Essential (primary) hypertension Vitamin B12 and Folate 6 Months I10 - Essential (primary) hypertension
--- OUTSIDE RECORDS SUMMARY | 2024-10-23 15:10 | XMS_ITS ---
Author Organization [facility] Shahla kathleen [place] Address [address] [place] [address] Care Team Providers Care Clinical Nursing Professor Name Role Phone Elliott Howell Primary Care Provider Alex Castillo Unavailable [phone] Allergies No Known Allergies REASON FOR VISIT [...] 30 days Active Vitamin D3 1.25 MG (09052 UT) 1 capsule Orally for 30 day(s) [...] Ordered Date Performed Result Body Sit e 52487-EXYYXUP NAIL, 1-5 01/22/2024 N/A 06630-DJZN SKIN LESIONS, OVER 4 01/22/2024 N/A G1686-CINILVBI DYSTROPHIC NAILS ANY # 01/22/2024 N/A Encounters Encounter Location Date Provider Diagnosis [facility] [address] [address] 01/22/2024 Aelx Antonio Atherosclerosis of [place] artery of both lower extremities, with unspecified presence of clinical manifestation I70.203 ; Tinea unguium B35.1 ; Pain in right toe(s) M79.674 ; Pain in left toe(s) M79.675 and Tinea pedis of both feet B35.3 Assessments Encounter Date Diagnosis (ICD Code) Assessment Notes Treatment Notes Treatment Clinical Notes Section Notes 01/22/2024 Atherosclerosis of [place] artery of both lower extremities, with unspecified [...] 01/22/2024 Pending Test Test Name Order Date 92840-SSTRSWI NAIL, 1-5 01/22/2024 61367-CRSK SKIN LESIONS, OVER 4 01/22/20 24 O3339-GZOEJEZQ DYSTROPHIC NAILS ANY # Next Appt Details Follow Up: prn, Reason: Procedure Notes * Category Sub-Category Detail Notes Keratoma Treatment Parring or Cutting o f Benign Hyperkeratotic Lesion(s) 11784 ( >4 Lesions) - The Benign hyperkeratotic [...] used for any petechial bleeding as necessary (59518). Patient chooses , topical antifungal , due to cholesterol meds , Cilclopirox gel 0.77 percent rxed Nail Reduction Nail Reduction Trimming of dyst rophic nails performed to reduce/remove overall nail length and girth, by manual and electrical means with use of a nail nipper and/or dremel, to more viable healthy nail plate or bed tissue (I1627-K4) Progress Notes * Elisa ASHTONDOB:1940 (83 yo F)Acc No.[id number]:01/22/2024 Progress Note Patient:?Elisa ASHTON Provider:?Alex Antonio DPM :1940???Age:83 Y???Sex:Female D ate:01/22/2024 Address:[address] [place] [address], [facility] Pcp:Elliott Howell Subjective: * Chief Complaints: * [...] alcohol in the past year??No ?Points?0 ?Interpretation?Negative ???Miscellaneous:?Caffeine: no, none. ?Children: yes. ?Exercise: yes, walking alot , occasional. ?Marital status: single. 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 * Medications:?TakingAlendrona te Sodium 70 MG Tablet 1 tablet 30 minutes before the first food, beverage or medicine of the day with plain water Orally Donepezil HCl 5 MG Tablet 1 tablet at bedtime Orally Once a day hydroCHLOROthiazide 12.5 MG Capsule 1 capsule in the morning Orally Once a day Meloxicam 7.5 MG Tablet 1 tablet Orally Once a day Metoprolol Succinate 25 MG Capsule ER 24 Hour Sprinkle 1 capsule Orally Once a day Pravastatin Sodium 20 MG Tablet 1 tablet Orally Once a day Vitamin D3 1.25 MG (59993 UT) Capsule 1 capsule Orally Ammonium Lactate 12 % Cream 1 application to affected area Externally to feet Twice a day Medication List reviewed and reconciled with the patientTaking Alendronate Sodium 70 MG Tablet 1 tablet 30 minutes before the first food, beverage or medicine of the day with plain water Orally Taking Donepezil HCl 5 MG Tablet 1 tablet at bedtime Orally Once a day Taking hydroCHLOROthiazide 12.5 MG Capsule 1 capsule in the morning Orally Once a day Taking Meloxicam 7.5 MG Tablet 1 tablet Orally Once a day Taking Metoprolol Succinate 25 MG Capsule ER 24 Hour Sprinkle 1 capsule Orally Once a day Taking Pravastatin Sodium 20 MG Tablet 1 tablet Orally Once a day Taking Vitamin D3 1.25 MG (34475 UT) Capsule 1 capsule Orally Taking Ammonium Lactate 12 % Cream 1 application to affected area Externally to feet Twice a day Medication List reviewed and reconciled with the patient * Allergies:?N.K.D.A.yes[Aller gies Verified] Objective: * Vitals:?Ht: 5 ft 4 in, Wt:18 1, BMI:31.07, Shoe size:6, BP:120/80mm Hg, BS:not taken. * Examination: ???Vascular: ?DP PULSES (B):? 0/4, LEFT, 1/4, RIGHT.?PT PULSES (B):? 0/4, B/L.?CAPILLARY FILL TIME:? delayed, all digits, B/L.?TROPHIC CONDITION-TEXTURE/ELASTICITY/TURGOR/HAIR GROWTH (B):? decreased, B/L.?TEMPERTURE GRADIENT (C):? decreased, cool to cool, proximal to distal, B/L.?PIGMENTATION:? rubrous, B/L.?EDEMA (C):? 2/4, non-pitting, without aching pain, B/L, Leg(s), Ankle(s), Feet.?CLAUDICATION (C):?denies, B/L.?REST PAIN:?denies, B/L.?Nails: ?NAILS are:?Elongated, overgrown, dystrophic, [...] B/L.? Assessment: * Assessment: 1.?Tinea unguium - B35.1???2 .?Atherosclerosis of mash[place] artery of both lower extremities, with unspecified presence of clinical manifestation - I70.203???3.?Pain in right toe(s) - M79.674???4.?Pain in left toe(s) - M79.675?? 5.?Tinea pedis of both feet - B35.3???Specify :Acute problem, Uncomplicated (3),Rx drug management (4)??? Plan: * Treatment: 2.?Atherosclerosis of mash[place] artery of both lower extremities, with unspecified presence of clinical manifestation?Procedure: 25194-FEXX SKIN LESIONS, OVER 4 ?Procedure: V0066-YBFYLPIF DYSTROPHIC NAILS ANY # 3.?Tinea pedis of [...] used for any petechial bleeding as necessary (60810). Patient chooses , topical antifungal , due to cholesterol meds , Cilclopirox gel 0.77 percent rxed.?Keratoma Treatment:?Parring or Cutting of Benign Hyperkeratotic Lesion(s)?60275 ( >4 Lesions) - The Benign hyperkeratotic lesions, as described above were pared, and/or cut utilizing a sterile #15 blade, tissue nippers, and/or dremel, Q8.?Nail Reduction:?Nail Reduction?Trimming of dystrophic nails performed to reduce/remove overall nail length and girth, by manual and electrical means with use of a nail nipper and/or dremel, to more viable healthy nail plate or bed tissue (Y3723-P5).? * Procedure Codes:?45859 TRIM SKIN LESIONS, OVER 4, Modifiers: XS , G5V1462 TRIMMING DYSTROPHIC NAILS ANY #, Modifiers: XS , [id number] DEBRIDE NAIL, 1-5, Modifiers: XS * Preventive [...] their pharmacy at the time of visit.? ??Screening/Special Tests:?Fall Risk?Screening:?No falls in the past year ?FALLS: Screening for Future Fall Risk?Have you had any falls with injury in the past year??No * Follow Up:?prn * Images: * Sign off status: Completed true * Provider:?Alex Antonio DPM Date:?2023 Generated for Tiki arthur/Dao/Evy on:?10/23/2024 03:09 PM EDT History and Physical Notes * HPI (History of Present Illness) Category Sub-Category Detail Notes Category Not es Skin problems Nature: scaling , redness Location: B/L Duration: several days Course: worse At Risk footcare Pt States Last PCP Visit: Date: 4 Examination Category Sub-Category Detail Notes Category Not [...]
--- OUTSIDE RECORDS SUMMARY | 2024-10-23 15:10 | XMS_ITS | Patient Health Record ---
[facility] Address [address] [place] [address] Care Team Providers Care Assembler Surgical Garment Name Role Phone Elliott Howell Primary Care Provider Alex Castillo Unavailable [phone] Allergies No Known Allergies Reason For Referral [...] 30 days Active Vitamin D3 1.25 MG (04025 UT) 1 capsule Orally for 30 day(s) [...] W/U Status Risk Notes Problem Atherosclerosis of cahto arteries of the extremities ([id number]) Atherosclerosis of cahto artery of both lower extremities, with unspecified presence of clinical manifestation (I70.203) Active confirmed Vital Signs Blood pressure diastolic 80 mm Hg 01/22/2024 Height 5 ft 4 in in 01/22/2024 Blood pressure systolic 120 mm Hg 01/22/2024 Weight 181 lbs 01/22/2024 BMI 31.07 kg/m2 01/22/2024 Procedures Procedure Date Ordered Date Performed Result Body Sit e 86013-RSKCFUO NAIL, 1-5 01/22/2024 N/A 73510-JBCI SKIN LESIONS, OVER 4 01/22/2024 N/A V6204-JVMRLVEN DYSTROPHIC NAILS ANY # 01/22/2024 N/A Encounters Encounter Location Date Provider Diagnosis [facility] [address] [place] [address] 01/22/2024 Alex Antonio Atherosclerosis of cahto artery of both lower extremities, with unspecified presence of clinical manifestation I70.203 ; Tinea unguium B35.1 ; Pain in right toe(s) M79.674 ; Pain in left toe(s) M79.675 and Tinea pedis of both feet B35.3 Assessments Encounter Date Diagnosis (ICD Code) Assessment Notes Treatment Notes Treatment Clinical Notes Section Notes 01/22/2024 Tinea unguium (ICD-10 - B35.1) 01/22/2024 Atherosclerosis of cahto artery of both lower extremities, with unspecified presence of clinical manifestation (ICD-10 - I70.203) 01/22/2024 Pain in right toe(s) (ICD-10 - M79.674) 01/22/2024 Pain in left toe(s) (ICD-10 - M79.675) 01/22/2024 Tinea pedis of both feet (ICD-10 - B35.3) Plan Of Treatment Pending Test Test Name Order Date 89637-VGTYSGF NAIL, 1-5 04/11/2022 19402-DTXKJQW NAIL, 1-5 07/28/2022 48194-IKBLRDF NAIL, 1-5 04/30/2023 99475-LVUBICM NAIL, 1-5 01/22/2024 88808-DGLH SKIN LESIONS, OVER 4 01/22/20 24 54351-YAHV SKIN LESIONS, OVER 4 04/30/20 23 78890-USNP SKIN LESIONS, OVER 4 07/28/19 23 53403-SGFV SKIN LESIONS, 2 TO 4 04/11/20 22 A3269-CVOHETRS DYSTROPHIC NAILS ANY # R2874-KGLTVIDI DYSTROPHIC NAILS ANY # A0051-ZHQJBNWT DYSTROPHIC NAILS ANY # Q4011-LZJIGBKP DYSTROPHIC NAILS ANY # Insurance Providers Payer Name Payer Address Payer Phone Subscriber Number Group Number Insured Name Patient Relationship to Insured Coverage Start Date Coverage End Date Aetna [address] [place] [phone] [id number] Elisa Falcon Self - patient is the insured Medical (General) History Medical History History ICD Code Alzheimers disease Arthritis Back pain Dementia Gout High blood pressure Osteoporosis CAD Surgical History Surgery Date(Month/Year) Hospitalization History Reason Date(Month/Year) Years a go can't remember
--- OUTSIDE RECORDS SUMMARY | 2024-10-23 15:10 | XMS_ITS ---
Author Organization [facility] Address [address] [place] [address] Care Team Providers Care Sinker Puller Name Role Phone Elliott Howell Primary Care Provider Alex Castillo Unavailable [phone] Allergies No Known Allergies REASON FOR VISIT At Risk Footcare, Painful Nail(s) aggrevated by shoes and causing difficulty standing/walking., Skin problem(s) Medications Medication SIG (Take, Route, Frequency, Duration) Notes Start Date End Date Status Vitamin D3 1.25 MG (34012 UT) 1 capsule Orally for 30 day(s) [...] Ordered Date Performed Result Body Sit e 57884-KHRMEGR NAIL, 1-5 04/30/2023 N/A 52584-TUTX SKIN LESIONS, OVER 4 04/30/2023 N/A A1160-SOYBSZJG DYSTROPHIC NAILS ANY # 04/30/2023 N/A Encounters Encounter Location Date Provider Diagnosis [facility] [address] [address] 04/30/2023 Alex Antonio Atherosclerosis of [place] artery of both lower extremities, with unspecified presence of clinical manifestation I70.203 ; Xerosis cutis L85.3 ; Tinea unguium B35.1 ; Pain in right toe(s) M79.674 and Pain in left toe(s) M79.675 Assessments Encounter Date Diagnosis (ICD Code) Assessment Notes Treatment Notes Treatment Clinical Notes Section Notes 04/30/2023 Atherosclerosis of [place] artery of both lower extremities, with unspecified [...] days Pending Test Test Name Order Date 65585-OGLOKNM NAIL, 1-5 04/30/2023 94596-YKYI SKIN LESIONS, OVER 4 04/30/20 23 L8002-TELWKGAG DYSTROPHIC NAILS ANY # Next Appt Details Follow Up: prn, Reason: Procedure Notes * Category Sub-Category Detail Notes Keratoma Treatment Parring or Cutting o f Benign Hyperkeratotic Lesion(s) 62094 ( >4 Lesions) - The Benign hyperkeratotic [...] used for any petechial bleeding as necessary (13997). Patient chooses, no pharmaceutical tx Nail Reduction Nail Reduction Trimming of dyst rophic nails performed to reduce/remove overall nail length and girth, by manual and electrical means with use of a nail nipper and/or dremel, to more viable healthy nail plate or bed tissue 6-10 (M7863-G3) Progress Notes * Elisa ASHTONDOB:1940 (82 yo F)Acc No.[id number]:04/30/2023 Progress Note Patient:?Elisa Ashton Provider:?Alex Antonio DPM :1940???Age:82 Y???Sex:Female D ate:04/30/2023 Address:[address] [place] [address] Pcp:Elliott Howell Subjective: * Chief Complaints: * [...] Orally Once a dayVitamin D3 1.25 MG (17984 UT) Capsule 1 capsule Orally Ammonium Lactate [...] Once a dayTaking Vitamin D3 1.25 MG (59217 UT) Capsule 1 capsule Orally Taking Ammonium [...] Response to treatment,Unchanged due to illness?2.?Atherosclerosis of [place] artery of both lower extremities, with unspecified presence of clinical manifestation - I70.203?3.?Tinea unguium - B35.1?4.?Pain in right toe(s) - M79.674?5.?Pain in left toe(s) - M79.675? Plan: * Treatment: 2.?Atherosclerosis of [place] artery of both lower extremities, with unspecified presence of clinical manifestation?Procedure: 04109-MCWB SKIN LESIONS, OVER 4 ?Procedure: K3567-FWILQXNJ DYSTROPHIC NAILS ANY # 3.?Tinea unguium?Procedure: 13393-WSSUVHI NAIL, 1-5 * Procedures:?Debride Nails 1-5:?Procedure:?Nail debridement performed extensively to reduce/remove overall nail length and girth, subungual debris, and necrotic tissue, by manual and electrical means with use of a nail nipper and/or dremel, to more viable healthy nail plate or bed tissue 1-5. Silver nitrate used for any petechial bleeding as necessary (01005). Patient chooses, no pharmaceutical tx.?Keratoma Treatment:?Parring or Cutting of Benign Hyperkeratotic Lesion(s)?51127 ( >4 Lesions) - The Benign hyperkeratotic [...] bed tissue 6-10 (G0127- Q8).? * Procedure Codes:?31834 TRIM SKIN LESIONS, OVER 4, Modifiers: XS , [id number] TRIMMING DYSTROPHIC NAILS ANY #, Modifiers: XS , [id number] DEBRIDE NAIL, 1-5, Modifiers: XS * Preventive [...] Antonio DPM Date:?2022 Generated for Tiki arthur/Dao/Evy on:?10/23/2024 03:10 PM EDT History and Physical Notes * [...]
== END 2024-10-23 14:51 | disposition home or self-care (01) ==
LOC: HO.HMCH 14:20
PROVIDERS: PCP Internal Medicine; Visit Provider Internal Medicine
DX: J45.20 Mild intermittent asthma, uncomplicated (principal); H34.8312 Tributary (branch) retinal vein occlusion, right eye, stable; E66.9 Obesity, unspecified; Z68.37 Body mass index [BMI] 37.0-37.9, adult; I10 Essential (primary) hypertension; R73.02 Impaired glucose tolerance (oral); E78.00 Pure hypercholesterolemia, unspecified; Z23 Encounter for immunization

== ENCOUNTER → 2024-10-23 14:20 | Outpatient (BNVA) | payer MEDICARE, SELFPAY | PROVIDERS: PCP Internal Medicine; Visit Provider Internal Medicine | DX: J45.20 Mild intermittent asthma, uncomplicated (principal); I10 Essential (primary) hypertension; R73.02 Impaired glucose tolerance (oral); E78.00 Pure hypercholesterolemia, unspecified; E66.9 Obesity, unspecified; H34.8312 Tributary (branch) retinal vein occlusion, right eye, stable; L30.9 Dermatitis, unspecified; R30.0 Dysuria; Z23 Encounter for immunization; Z68.37 Body mass index [BMI] 37.0-37.9, adult | CPT/HCPCS: 90471; 90714; 96127; 99212 ==

== ENCOUNTER 2025-04-06 14:29 | Outpatient (AMB) | payer MEDICARE, SELFPAY ==
[2025-04-06 14:32] VITALS: BP 150/84; PULSE 77; TEMP 36.3; O2SAT 96; BMI 38.2
--- NOTE | 2025-04-06 14:32 | MHC.PC.OV ---
Vital Signs 04/06/25 14:32 Height 4 ft 11 in Weight 189 lb BMI 38.2 BP 150/84 H Blood Pressure Location Lt brachial Position Sitting Pulse 77 Pulse Source Pulse Oximeter Temp 97.3 F Temp Source Temporal Artery Scan Pulse Oximetry (%) 96 Oxygen Delivery Method Room Air Intake Visit Reasons: Eye infection Accompanied by: Daughter Allergies pollen extracts Allergy (Mild, Verified 04/06/25 14:36) Sneezing amlodipine Allergy (Unknown, Verified 04/06/25 14:36) Unknown house dust Allergy (Unknown, Verified 04/06/25 14:36) Unknown losartan Allergy (Unknown, Verified 04/06/25 14:36) Unknown hydrochlorothiazide Adverse Reaction (Intermediate, Verified 04/06/25 14:36) hyponatremia lisinopril Adverse Reaction (Intermediate, Verified 04/06/25 14:36) cough prednisone Adverse Reaction (Intermediate, Verified 04/06/25 14:36) swelling LE shrimp Allergy (Mild, Uncoded 04/06/25 14:36) Swelling sunscreen Allergy (Mild, Uncoded 04/06/25 14:36) Rash Medication List - Last Reconciled 04/06/25 by Tami Madrigal MD albuterol sulfate 90 mcg/actuation (Ventolin HFA) 2 puffs inhalation Q6H PRN alendronate 70 mg PO QWEEK 90 days cane As directed cholecalciferol (vitamin D3) 1,250 mcg PO QWEEK 90 days compress.stocking,knee,reg,lrg As directed diclofenac sodium 1% (Voltaren Arthritis Pain) 4 grams topical QID diphenhydramine HCl (Benadryl Allergy) 25 mg PO BEDTIME PRN donepezil 5 mg PO BEDTIME hydrocortisone 1% (Cortisone (hydrocortisone)) 1 appl topical BID PRN meloxicam 7.5 mg PO DAILY PRN metoprolol succinate ER 25 mg PO DAILY nystatin 1 appl topical BID nystatin 1 appl topical BID pravastatin 20 mg PO DAILY [rollator walker with a seat As directed] Shower Chair with back umeclidinium-vilanterol 62.5-25 mcg/actuation (Anoro Ellipta) 1 inh inhalation DAILY Tobacco use date assessed: 04/06/25 Fall risk assessment: No Falls in past year Last assessed Fall Risk: 04/06/25 Dental Screening Dental Screen Date: 04/06/25 Did you have a dental visit in the last 12 months?: No Did you have a dental problem in the last 6 months where you did not have access to dental care?: No Was dental information given to patient?: No HPI HPI Comments History of Present Illness Details The patient is an 84-year-old female presenting with a red, watery left eye. The symptoms began on Sunday and have not improved over the weekend. The eye has been leaking clear liquid without any pus, and there is no associated pain. The patient reports itchiness in the left eye, which initially subsided but has started again. There is no confirmed impact on vision. The patient has a history of age-related macular degeneration and receives regular eye injections. She missed her last scheduled appointment due to transportation issues but plans to attend the next one. [facility] Medical History Pulmonary nodules Dyspnea Pulmonary scarring Rib pain on right side Lower extremity edema Right flank pain Swelling of lower leg Non-toxic multinodular goiter Osteoporosis Hyperparathyroidism Meningioma UTI (urinary tract infection) Confusion Impaired glucose tolerance Thyroid nodule Hypertension Asthma Obesity (BMI 30-39.9) Hypercholesterolemia Periorbital cellulitis of left eye Surgical History History of cholecystectomy History of thyroid surgery Family History Father CVD (cardiovascular disease) Myocardial infarction Mother Diabetes Vaginal cancer Sister Diabetes Son In good health Daughter In good health Daughter In good health Social History Housing: Apartment Alcohol intake: never Patient Tobacco Use Status: Never used Tobacco e-Cigarette/Vaping Use: Never Used Second Hand Smoke Exposure: No service: No Current occupational status: retired Cognitive needs: Yes (walker/cane) Hearing needs: No Vision needs: Yes (reading glasses) Questionnaire PHQ-9 Over the last 2 weeks, how often have you been bothered by any of the following problems? 1. Little interest or pleasure in doing things: not at all 2. Feeling down, depressed, or hopeless: not at all 3. Trouble falling or staying asleep, or sleeping too much: not at all 4. Feeling tired or having little energy: not at all 5. Poor appetite or overeating: not at all 6. Feeling bad about yourself - or that you are a failure or have let yourself or your family down: not at all 7. Trouble concentrating on things, such as reading the newspaper or watching television: not at all 8. Moving or speaking so slowly that other people could have noticed. Or the opposite - being so fidgety or restless that you have been moving around a lot more than usual: not at all 9. Thoughts that you would be better off or of hurting yourself in some way: not at all Total score: 0 Source: Developed by Drs. Reed Park, Gifty Youngblood, Emre Vickers and colleagues, with an educational grace from [employer]. Thrive Questionnaire Date Thrive assessed: 10/21/24 I am a: Patient What is your living situation today?: I have a steady place to live Within the past 12 months, did the food you bought not last and you didn't have the money to get more?: Never true Within the past 12 months, did you worry whether your food would run out before you got money to buy more?: Never true Do you have trouble paying for medicines?: No Do you have trouble getting transportation to medical appointments?: No Do you have trouble paying your heating and electricity bill?: No Do you have trouble taking care of your child, family member or friend?: No Do you have trouble with day-to-day activities such as bathing, preparing meals, shopping, managing finances, etc.?: Yes Are you currently unemployed and looking for a job?: No Are you interested in more education?: No Please select the resources that you would like help with: Food Currently or been in a relationship where the following occur: No concerns reported THRIVE Score: 0 AUDIT C Alcohol Use Questionnaire (AUDIT-C) 1. How often do you have a drink containing alcohol?: Never 3. How often do you have six or more drinks on one occasion?: Never Total Score: 0 LISANDRO-7 AMB Questionnaire LISANDRO-7 Date LISANDRO - 7 assessed: 10/23/24 Feeling nervous, anxious, or on edge: 0 = Not at all Not being able to stop or control worryin = Not at all Worrying too much about different things: 0 = Not at all Trouble relaxin = Not at all Being so restless that it is hard to sit still: 0 = Not at all Becoming easily annoyed or irritable: 0 = Not at all Feeling afraid as if something awful might happen: 0 = Not at all Total LISANDRO-7 score (0-4 normal; 5-9 mild; 10-14 moderate; 15-21 severe): 0 Source: Developed by Drs. Reed Park, Gifty Youngblood, Emre Vickers and colleagues, with an educational grace from [employer]. Review of Systems Const Details: Positives besides what was mentioned in HPI are in BOLD Constitutional: No Weight Change, No Fever, No Chills, No Night Sweats, No Fatigue, No Malaise ENT/Mouth: No Hearing Changes, No Ear Pain, No Nasal Congestion, No Sinus Pain, No Hoarseness, No sore throat, No Rhinorrhea, No Swallowing Difficulty Eyes: No Eye Pain, No Swelling, No Redness, No Foreign Body, No Discharge, No Vision Changes Cardiovascular: No Chest Pain, No SOB, No PND, No Dyspnea on Exertion, No Orthopnea, No Claudication, No Edema, No Palpitations Respiratory: No Cough, No Sputum, No Wheezing, No Smoke Exposure, No Dyspnea Gastrointestinal: No Nausea, No Vomiting, No Diarrhea, No Constipation, No Pain, No Heartburn, No Anorexia, No Dysphagia, No Hematochezia, No Melena, No Flatulence, No Jaundice Genitourinary: No Dysmenorrhea, No DUB, No Dyspareunia, No Dysuria, No Urinary Frequency, No Hematuria, No Urinary Incontinence, No Urgency, No Flank Pain, No Urinary Flow Changes, No Hesitancy Musculoskeletal: No Arthralgias, No Myalgias, No Joint Swelling, No Joint Stiffness, No Back Pain, No Neck Pain, No Injury History Skin: No Skin Lesions, No Pruritis, No Hair Changes, No Breast/Skin Changes, No Nipple Discharge Neuro: No Weakness, No Numbness, No Paresthesias, No Loss of Consciousness, No Syncope, No Dizziness, No Headache, No Coordination Changes, No Recent Falls Psych: No Anxiety/Panic, No Depression, No Insomnia, No Personality Changes, No Delusions, No Rumination, No SI/HI/AH/VH, No Social Issues, No Memory Changes, No Violence/Abuse Hx., No Eating Concerns Heme/Lymph: No Bruising, No Bleeding, No Transfusions History, No Lymphadenopathy Endocrine: No Polyuria, No Polydipsia, No Temperature Intolerance Physical exam (Primary Care) Vital Signs: Last Vital Signs Temp 97.3 F 04/06/25 14:32 Pulse 77 04/06/25 14:32 BP 150/84 H 04/06/25 14:32 Pulse Ox 96 04/06/25 14:32 Oxygen Delivery Method Room Air 04/06/25 14:32 BMI result Body Mass Index 38.2 Tobacco/Smoking Status: Tobacco use Status Tobacco use date assessed 04/06/25 04/06/25 14:36 Patient Tobacco Use Status Never used Tobacco 04/06/25 14:36 e-Cigarette/Vaping Use Never Used 04/06/25 14:36 PHQ-9: PHQ-9 Score PHQ-9: Total score 0 04/06/25 14:36 Thrive Assessment: Date of Thrive Assessment Date Thrive assessed 10/21/24 04/06/25 14:36 Currently or been in a relationship where the following occur: No concerns reported Const Other: Pertinent findings are in BOLD GENERAL APPEARANCE NAD, activity normal for age, well developed/ well nourished, no cyanosis, pallor, or diaphoresis. EYES Left eye redness, no pus. EARS/NOSE/THROAT Mucous membranes moist, nares normal, lips/teeth normal uvula midline without oral pharyngeal erythema, exudate or swelling TMs normal bilaterally. No lymphangitis/lymphedema. HEAD/NECK normocephalic atraumatic, no facial trauma, neck is supple. RESPIRATORY respiratory effort normal, speaks in full sentences, no tripod position, no accessory muscle use. Lungs clear to auscultation without rhonchi, wheezes, rales CARDIAC Regular rate and rhythm, no edema. ABDOMINAL Soft, ND/NT. No evidence of fluid wave. No pulsatile masses on exam, rebound tenderness, Rico sign or pain over Mcburney's point. MUSCLES/EXTREMITIES No abnormal range of motion, no swelling. SKIN Warm, pink and dry. No rashes, dermatoses, petechiae or lesions. NEUROLOGICAL Speech is clear and appropriate. Normal level of consciousness. Gait and coordination are normal. 5/5 strength in all extremities. PSYCH Normal mood and affect. Judgement/competence is appropriate Coding Level of Care Code Est Pt Level 3 (58630) Diagnoses Conjunctivitis H10.9 Time Spent (min) 20 Assessment & Plan Assessment & Plan (1) Conjunctivitis: Code(s): H10.9 - Unspecified conjunctivitis Category: Medical Plan: - Prescribed eye drops to be used three times daily for one week. - Advised to keep the upcoming eye doctor appointment for further evaluation if symptoms do not improve. Plan I discussed with the patient that the symptoms of the red, watery eye are most likely due to a infection, but the prescribed eye drops will address both potential infection and allergy. I advised maintaining the upcoming ophthalmology appointment to ensure comprehensive evaluation and management of her eye conditions. Medications: New fuwmnfpzraq-etvvkwhx-tlygagnlu 1-0.5-0.5 % 1 drp ophthalmic (eye) TID 8 mL 0RF
--- OUTSIDE RECORDS SUMMARY | 2025-04-06 18:17 | XMS_ITS | Patient Health Record ---
Author Organization [facility] Address [address] [place] [address] Care Team Providers Care Director Of Assisted Living Name Role Phone Kale Sifuentes Jr [phone] Reason For Referral No Information Plan Of Treatment No Information
--- OUTSIDE RECORDS SUMMARY | 2025-04-06 18:17 | XMS_ITS | Patient Health Record ---
Author [facility] Address [address] [place] [address] Care Team Providers Care Technician Telecommunication Systems Name Role Phone Elliott Howell Primary Care Provider Alex Castillo Unavailable [phone] Allergies No Known Allergies Reason For Referral No Information Medications Medication SIG (Take, Route, Frequency, Duration) Notes Start Date End Date Status Vitamin D3 1.25 MG (43198 UT) 1 capsule Orally; Duration: 30 day(s) Active Pravastatin Sodium 20 MG 1 tablet Orally Once a day; Duration: 30 day(s) Active Ciclopirox Olamine 0.77 % 1 application Externally Twice a day; Duration: 30 days Active Ammonium Lactate 12 % 1 application to affected area Externally to feet Twice a day; Duration: 30 days Not-Taking Ciclopirox 0.77 % 1 application to affected area Externally Twice a day to effected nails; Duration: 30 days 01/22/2024 Active Alendronate Sodium 70 MG 1 tablet 30 min utes before the first food, beverage or medicine of the day with plain water Orally; Duration: 30 day(s) Active hydroCHLOROthiazide 12.5 MG 1 capsule in the morning Orally Once a day; Duration: 30 day(s) Active Donepezil HCl 5 MG 1 tablet at bedtime Orally Once a day; Duration: 30 day(s) Active Metoprolol Succinate 25 MG 1 capsule Ora lly Once a day; Duration: 30 day(s) Active Meloxicam 7.5 MG 1 tablet Orally Once a day; Duration: 30 day(s) Active Immunizations Vaccine Route Administration Date Status Comme nts COVID-19 Moderna Vaccine Unknown 01/16/2021 Administered 2020 Unsure Dates Social History Tobacco Use: Social History Observation Description Date Details (start date - stop date) Never Smoker NA - NA Alcohol Screen Question Answer Notes Did you have a drink containing alcohol in the p ast year? No Points 0 Interpretation Negative Tobacco use other than smoking: Question Answer Notes Are you an other tobacco user? No Tobacco Control (Standard) Question Answer Notes Tobacco use: Nonsmoker Additional Findings: Tobacco non-user Current no nsmoker Problems Problem Type SNOMED Code ICD Code Onset Dates Problem Status W/U Status Risk Notes Problem Bilateral atherosclerosis of arteries of lower limbs (disorder) (55176086878665150 ) Atherosclerosis of [place] artery of both lower extremities, with unspecified presence of clinical manifestation (I70.203) Active confirmed Vital Signs Blood pressure diastolic 68 mm Hg 11/17/2024 Height 5 ft 4 in in 11/17/2024 Blood pressure systolic 126 mm Hg 11/17/2024 Weight 180 lbs 11/17/2024 BMI 30.89 kg/m2 11/17/2024 Procedures Procedure Date Ordered Date Performed Result Body Sit e 55703-MFDJRGT NAIL, 1-5 11/17/2024 N/A 83972-ULAF SKIN LESIONS, OVER 4 11/17/2024 N/A R9060-OLEENBEW DYSTROPHIC NAILS ANY # 11/17/2024 N/A Encounters Encounter Location Date Provider Diagnosis [facility] [place] [address] [place] [phone] 11/17/2024 Alex Antonio Atherosclerosis of [place] artery of both lower extremities, with unspecified presence of clinical manifestation I70.203 ; Tinea unguium B35.1 ; Pain in right toe(s) M79.674 and Pain in left toe(s) M79.675 Assessments Encounter Date Diagnosis (ICD Code) Assessment Notes Treatment Notes Treatment Clinical Notes Section Notes 11/17/2024 Tinea unguium (ICD-10 - B35.1) 11/17/2024 Atherosclerosis of [place] artery of both lower extremities, with unspecified presence of clinical manifestation (ICD-10 - I70.203) 11/17/2024 Pain in right toe(s) (ICD-10 - M79.674) 11/17/2024 Pain in left toe(s) (ICD-10 - M79.675) Plan Of Treatment Pending Test Test Name Order Date 06409-NCUDXOV NAIL, 1-04/11/2022 71206-YOSDCYS NAIL, -07/28/2022 73596-CRTTAFO NAIL, -04/30/2023 77810-WGTWPBM NAIL, 1-01/22/2024 65988-BJSCDIM NAIL, 1-11/17/2024 98503-LJMA SKIN LESIONS, OVER 4 11/18/19 25 69206-VAVC SKIN LESIONS, OVER 4 01/22/20 24 11086-FUHT SKIN LESIONS, OVER 4 04/30/20 23 20027-QXHY SKIN LESIONS, OVER 4 07/28/19 23 14028-VJZP SKIN LESIONS, 2 TO 4 04/11/20 22 I2481-DTQYKTQU DYSTROPHIC NAILS ANY # U5835-JUOROBKF DYSTROPHIC NAILS ANY # J5122-MDNCMHTT DYSTROPHIC NAILS ANY # G8588-VPCWIHUB DYSTROPHIC NAILS ANY # U7023-FXSHATHF DYSTROPHIC NAILS ANY # Insurance Providers Payer Name Payer Address Payer Phone Subscriber Number Group Number Insured Name Patient Relationship to Insured Coverage Start Date Coverage End Date [employer]na [address] [place] [phone] [id number] Elisa Falcon Self - patient is the insured Medical (General) History Medical History History ICD Code Alzheimers disease Arthritis Back pain Dementia Gout High blood pressure Osteoporosis CAD Surgical History Surgery Date(Month/Year) Hospitalization History Reason Date(Month/Year) Years a go can't remember
== END 2025-04-06 15:01 | disposition home or self-care (01) ==
LOC: HO.HMCH 14:29
PROVIDERS: PCP Internal Medicine; Visit Provider Internal Medicine
DX: H10.9 Unspecified conjunctivitis (principal)

== ENCOUNTER → 2025-04-06 14:29 | Outpatient (BNVA) | payer MEDICARE, SELFPAY | PROVIDERS: PCP Internal Medicine; Visit Provider Internal Medicine | DX: I10 Essential (primary) hypertension (principal); H35.30 Unspecified macular degeneration; H10.9 Unspecified conjunctivitis | CPT/HCPCS: 96127; 99212 ==

== ENCOUNTER 2025-05-06 12:20 | Outpatient (AMB) | payer MEDICARE, SELFPAY ==
[2025-05-06 12:40] VITALS: BP 158/78; PULSE 58; O2SAT 97; BMI 38.0
--- NOTE | 2025-05-06 12:40 | A.OFFPC_ITS ---
Vital Signs 3 05/06/25 12:40 05/06/25 12:55 Height 4 ft 11 in Weight 188 lb BMI 38.0 BP 158/78 H 140/70 H Blood Pressure Location Lt brachial Lt brachial Position Sitting Sitting Pulse 58 Pulse Source Pulse Oximeter Pulse Oximetry (%) 97 Oxygen Delivery Method Room Air Intake Visit Reasons: pe Intake Note: Rash on bottom, right shoulder pain Allergies pollen extracts Allergy (Mild, Verified 05/06/25 12:41) Sneezing amlodipine Allergy (Unknown, Verified 05/06/25 12:41) Unknown house dust Allergy (Unknown, Verified 05/06/25 12:41) Unknown losartan Allergy (Unknown, Verified 05/06/25 12:41) Unknown hydrochlorothiazide Adverse Reaction (Intermediate, Verified 05/06/25 12:41) hyponatremia lisinopril Adverse Reaction (Intermediate, Verified 05/06/25 12:41) cough prednisone Adverse Reaction (Intermediate, Verified 05/06/25 12:41) swelling LE shrimp Allergy (Mild, Uncoded 05/06/25 12:41) Swelling sunscreen Allergy (Mild, Uncoded 05/06/25 12:41) Rash Medication List - Last Reconciled 05/06/25 by Elliott Howell MD albuterol sulfate 90 mcg/actuation (Ventolin HFA) 2 puffs inhalation Q6H PRN alendronate 70 mg PO QWEEK 90 days cane As directed cholecalciferol (vitamin D3) 1,250 mcg PO QWEEK 90 days compress.stocking,knee,reg,lrg As directed diclofenac sodium 1% (Voltaren Arthritis Pain) 4 grams topical QID diphenhydramine HCl (Benadryl Allergy) 25 mg PO BEDTIME PRN donepezil 5 mg PO BEDTIME hydrocortisone 1% (Cortisone (hydrocortisone)) 1 appl topical BID PRN meloxicam 7.5 mg PO DAILY PRN metoprolol succinate ER 25 mg PO DAILY nystatin 1 appl topical BID polymyxin B sulf-trimethoprim 10,000 unit- 1 mg/mL 1 drp ophthalmic (eye) QID 5 days pravastatin 20 mg PO DAILY [rollator walker with a seat As directed] Shower Chair with back umeclidinium-vilanterol 62.5-25 mcg/actuation (Anoro Ellipta) 1 inh inhalation DAILY Tobacco use date assessed: 04/06/25 Fall risk assessment: No Falls in past year Last assessed Fall Risk: 05/06/25 Dental Screening Dental Screen Date: 04/06/25 HPI pe 2 HPI0 Details daughter Lakisha greene interpret HPI Comments 2 History of Present Illness0 Details History of Present Illness The patient is an 84-year-old obese female presenting for an annual physical exam. Her past medical history is significant for hypercholesterolemia, hypertension, impaired glucose tolerance, asthma, hyperparathyroidism with associated osteoporosis, pulmonary nodules, lumbar spinal stenosis, and a meningioma in the right frontal area diagnosed in June 2022. Ophthalmologic history includes posterior vitreous detachment and a recent diagnosis of branch retinal vein occlusion in September, for which Avastin injections have been recommended. Her daughter reports that her vision is getting worse, with the right eye being very dark and the left eye starting to decline. Recent bloodwork from June showed a normal blood count, electrolytes, and renal function. Blood sugar was mildly elevated with a normal hemoglobin A1c, and cholesterol and liver function tests were good. Vitamin B12, vitamin D, and thyroid levels were within normal limits, while folic acid was low-normal. The patient has known medication allergies to prednisone, lisinopril, hydrochlorothiazide, losartan, and amlodipine. There have been no new diagnoses or surgeries since her last visit. The patient has increasing forgetfulness, leading to non-adherence with medications and self-care such as applying lotion, despite her daughter preparing her pills. She has reportedly become paranoid recently. Due to her declining vision, she can no longer drive. Regarding her asthma, she has both Anoro and albuterol inhalers but does not use them regularly, though she does experience some shortness of breath. She has a dry, itchy patch on her buttock, which she scratches frequently. Health Maintenance - A bone density scan was last done in 2022, showing osteopenia, and the next one is scheduled for May 2024. - The patient follows with ophthalmology for branch retinal vein occlusion and has a recommendation for Avastin injections. - The patient has an upcoming appointmen t with a assistant women's rowing coach in May. - Vaccinations: The patient has had her tetanus and pneumonia shots. An influenza vaccine will be administered today. - Monitoring: The patient is advised to monitor her blood pressure at home. - Labs: An order for fasting blood work will be placed. - Lifestyle: The patient is encouraged t o continue with diet and exercise. - Screening: A rectal exam was performed and was negative for occult blood. Social History - Functional Status: The patient demonst rates significant forgetfulness, affecting medication adherence and personal care. - She requires assistance from her daugh osei to prepare her medications and administer eye drops. - She has lost driving privileges due to worsening vision. - Living Situation: The patient lives al one, but her daughter provides significant support, including preparing meals. - The daughter has expressed concern abo ut the patient's ability to live independently and has offered for the patient to live with her. - Exercise: The patient is not walking a s much. Results - Labs (from June): Blood count, elec trolytes, and renal function were normal. - Blood sugar was mildly elevated, but h emoglobin A1c was normal. - Cholesterol and liver function tests w ere good. - B12, vitamin D, and thyroid levels wer e within normal limits; folic acid was low-normal. - In-office Test: Stool guaiac test was negative. - Imaging: Last bone density scan in May showed osteopenia. [facility] Medical History Pulmonary nodules Dyspnea Pulmonary scarring Rib pain on right side Lower extremity edema Right flank pain Swelling of lower leg Non-toxic multinodular goiter Osteoporosis Hyperparathyroidism Meningioma UTI (urinary tract infection) Confusion Impaired glucose tolerance Thyroid nodule Hypertension Asthma Obesity (BMI 30-39.9) Hypercholesterolemia Periorbital cellulitis of left eye Surgical History History of cholecystectomy History of thyroid surgery Family History Father CVD (cardiovascular disease) Myocardial infarction Mother Diabetes Vaginal cancer Sister Diabetes Son In good health Daughter In good health Daughter In good health Social History Housing: Apartment Alcohol intake: never Patient Tobacco Use Status: Never used Tobacco Tobacco use type: Cigarette e-Cigarette/Vaping Use: Never Used Second Hand Smoke Exposure: No service: No Current occupational status: retired Cognitive needs: Yes (walker/cane) Hearing needs: No Vision needs: Yes (reading glasses) Questionnaire Thrive Questionnaire Date Thrive assessed: 10/21/24 I am a: Patient What is your living situation today?: I have a steady place to live Within the past 12 months, did the food you bought not last and you didn't have the money to get more?: Never true Within the past 12 months, did you worry whether your food would run out before you got money to buy more?: Never true Do you have trouble paying for medicines?: No Do you have trouble getting transportation to medical appointments?: No Do you have trouble paying your heating and electricity bill?: No Do you have trouble taking care of your child, family member or friend?: No Do you have trouble with day-to-day activities such as bathing, preparing meals, shopping, managing finances, etc.?: Yes Are you currently unemployed and looking for a job?: No Are you interested in more education?: No Please select the resources that you would like help with: Food Currently or been in a relationship where the following occur: No concerns reported THRIVE Score: 0 LISANDRO-7 AMB Questionnaire LISANDRO-7 Date LISANDRO - 7 assessed: 10/23/24 Source: Developed by Drs. Reed Park, Gifty Youngblood, Emre Vickers and colleagues, with an educational grace from [employer]. Review of Systems Narrative Review of Systems - Constitutional: Denies fever. - Eyes: Reports worsening vision, noting it is very dark in her right eye, and the left is also declining. - ENT: Reports good hearing. Denies problems with swallowing. - Cardiovascular: Denies chest pain, heaviness, or discomfort. - Respiratory: Reports shortness of breath at times. Denies waking up short of breath. - Gastrointestinal: Reports good bowel movements. Denies nausea, vomiting, or heartburn. - Genitourinary: Reports waking up once at night to urinate. - Integumentary: Reports having a dry, itchy patch on her buttock. Reports generalized dry skin. - Neurological: Reports forgetfulness. Denies dizziness or syncope. Const Denies poor appetite and Denies weakness Eyes Denies no additional complaints ENT Reports Normal hearing present, Denies dizziness, Denies nasal congestion, Denies tinnitus and Denies sore throat Card Denies chest pain, Denies syncope, Denies rapid heart rate and Denies dyspnea Resp Denies cough and Denies dyspnea GI Denies change in stool character, Reports constipation, Denies diarrhea, Denies nausea and Denies vomiting Denies urinary frequency, Denies difficulty voiding and Denies dysuria Neuro Reports Normal hearing present, Denies confusion, Denies dizziness, Denies syncope and Denies weakness Psych Denies confusion Physical exam (Primary Care) Vital Signs: Last Vital Signs Pulse 58 05/06/25 12:40 BP 140/70 H 05/06/25 12:55 Pulse Ox 97 05/06/25 12:40 Oxygen Delivery Method Room Air 05/06/25 12:40 BMI result Body Mass Index 38.0 Tobacco/Smoking Status: Tobacco use Status Tobacco use date assessed 04/06/25 05/06/25 12:44 Patient Tobacco Use Status Never used Tobacco 05/06/25 12:44 Tobacco use type Cigarette 05/06/25 12:44 e-Cigarette/Vaping Use Never Used 05/06/25 12:44 Thrive Assessment: Date of Thrive Assessment Date Thrive assessed 10/21/24 05/06/25 12:44 Currently or been in a relationship where the following occur: No concerns reported Narrative Physical Exam General: Cooperative, healthy appearing, comfortable, no acute distress and well developed Orientation: Patient oriented x3 Limitations: No limitations Head: Normal to inspection Ears: Hearing grossly normal bilaterally Nose: Normal external nose present Face and sinus: Normal facial exam Eyes: Appearance normal, both eyes and all related structures. Diagnosis of branch retinal vein occlusion, history of posterior vitreous detachment. Neck: Normal visual inspection and Yes full ROM Respiratory: Normal respiratory effort and able to speak in complete sentences. Clear to auscultation bilaterally Cardiovascular: Regular rate and rhythm. Normal S1 and S2 GI: Normal to inspection. Soft to palpation and nontender Skin: Dry patches noted on the back and feet, no rashes or lesions noted Neuro: Patient oriented x3 Extremities: Normal to inspection Const General: No confusion Orientation/consciousness: No confusion HENKS Head: Yes normocephalic Ears: external ears normal and TM's normal bilaterally Face and sinus: Yes normal facial exam Mouth: moist mucous membranes Throat: Yes tonsils normal Eyes Conjunctivae: conjunctivae normal Pupils: Equal, round and reactive pupils present and Pupil accommodation reflex normal Direct Ophthalmoscopy: normal light reflex Neck Neck: No lymphadenopathy Thyroid: Thyroid normal Chest Chest palpation & inspection: normal inspection of the chest Resp Effort & Inspection: normal respiratory effort and no audible wheezes Auscultation: clear to auscultation bilaterally, no crackles, no wheezes and lung sounds not diminished Cardio Rate: regular rate Rhythm: regular rhythm Peripheral pulses: radial pulses present and dorsalis pedis present GI Other: giuaiac negative Palpation (GI): no masses Auscultation: normal bowel sounds and normoactive bowel sounds Rectal Exam - Female: deferred Back/Spine/Pelvis Back/spine/pelvis image: 2 1. 2 inch scab noted with mild erythema around Skin General skin exam: no rashes or lesions noted Rashes: no rashes Neuro General: No confusion Cranial nerves: Yes Equal, round and reactive pupils present and Yes Normal hearing present Cognition (Neuro): normal cognition Gait exam (Neuro): Normal gait present Motor exam (neuro): 5/5 motor strength present throughout Deep tendon reflexes (DTR's): Right brachioradialis reflex intensity grade: 2+, Left brachioradialis reflex intensity grade: 2+, Right patellar reflex intensity grade: 2+ and Left patellar reflex intensity grade: 2+ Extrem General: No edema Office Procedures Flu Questionnaire Does the patient have a severe egg allergy?: No Does the patient have severe life threatening allergies?: No Does the patient have a fever or illness today?: No Has the patient ever had Guillain-Sidney Syndrome?: No Has the patient ever had any past reaction to a flu shot?: No Immunizations Fluarix [id number] (PF) 45 mcg (15 mcg x 3)/0.5 mL IM syringe Performing Provider: Elliott Howell MD [place] [facility] [place] [facility] Administered by: Agnes Menezes CMA on 05/06/25 13:16 2 Dose Route Admin Location Dispensed Lot Number Expiration Date 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 0.5 mL IM Left Deltoid 0.5 mL [id number] 12/15/25 [id number] [employer] 2 VIS Given Date VIS Provided VIS Publication Date 05/06/25 Single Vaccine 24 Eligibility Eligibility Date Funding Source Not [facility] Eligible 05/06/25 Private Coding Level of Care Code Est Pt Prev Care >65y(74487) Diagnoses Annual physical exam Z00.00 Essential hypertension I10 Hypertension type: essential hypertension Hypercholesterolemia E78.00 Impaired glucose tolerance R73.02 Hyperparathyroidism E21.3 Obesity (BMI 30-39.9) E66.9 Branch retinal vein occlusion of right eye H34.8312 Mild intermittent asthma without complication J45.20 Asthma complication type: uncomplicated Asthma persistence: intermittent Asthma severity: mild Osteopenia M85.80 Assessment & Plan Assessment & Plan (1) Annual physical exam: Code(s): Z00.00 - Encounter for general adult medical examination without abnormal findings Category: Medical Plan: Patient is advised to eat healthy, keep well hydrated, keep active and have adequate sleep. (2) Hypertension: Code(s): I10 - Essential (primary) hypertension Category: Medical Qualifiers: Hypertension type: essential hypertension Qualified Code(s): I10 - Essential (primary) hypertension Plan: Continue with blood pressure medication. Decrease salt intake and exercise on metoprolol 25 mg once a day (3) Hypercholesterolemia: Code(s): E78.00 - Pure hypercholesterolemia, unspecified Category: Medical Plan: Avoid fried foods, chicken skin, eggs, butter margarine, pastries and meat. Be it pork or beef they have a lot of cholesterol and pravastatin 20 mg once a day will need retesting in 2 months (4) Impaired glucose tolerance: Code(s): R73.02 - Impaired glucose tolerance (oral) Category: Medical Plan: Decrease the amount of carbohydrate intake, pasta, bread, rice and potatoes are all sugar and that is aside from all the sweet stuff, remember that fruits are good but they are Sweet also. (5) Hyperparathyroidism: Comment: Patient has met with endocrinology and will continue to monitor as this is mild hyperparathyroidism Code(s): E21.3 - Hyperparathyroidism, unspecified Category: Medical Plan: Continuing to monitor (6) Obesity (BMI 30-39.9): Code(s): E66.9 - Obesity, unspecified Category: Medical Plan: Diet and exercise (7) Branch retinal vein occlusion of right eye: Comment: December 2023 Code(s): H34.8312 - Tributary (branch) retinal vein occlusion, right eye, stable Category: Medical Plan: Patient follows up with Ophthalmology (8) Asthma: Comment: PFTs with mild COPD Code(s): J45.909 - Unspecified asthma, uncomplicated Category: Medical Qualifiers: Asthma complication type: uncomplicated Asthma persistence: i ntermittent Asthma severity: mild Qualified Code(s): J45.20 - Mild intermittent asthma, uncomplicated Plan: On Anoro and albuterol inhaler (9) Osteopenia: Comment: Bone density May 2024 Code(s): M85.80 - Other specified disorders of bone density and structure, unspecified site Category: Medical Plan: Continue with calcium and vitamin-D as well as on alendronate once a week Plan Plan Patient was informed and verbally consented to the use of an ambient scribe for clinic note documentation during this visit. 1. Hypertension The patient is on metoprolol 25 mg once a day. Today's blood pressure reading was borderline elevated at 140. To better assess control and rule out white coat hypertension, the patient was instructed to monitor her blood pressure at home 2-3 times per week after resting for several minutes. No medication changes will be made at this time, pending review of the home blood pressure log. 2. Hypercholesterolemia The patient will continue pravastatin 20 mg once a day. Recent cholesterol levels were good. Plan to recheck labs in a few months. 3. Impaired Glucose Tolerance Will continue to monitor with diet and exercise. 4. Asthma The patient has an Anoro inhaler and an albuterol inhaler but is reportedly not using them. She was encouraged to use her inhalers if she experiences shortness of breath. 5. Osteoporosis The patient will continue taking alendronate once a week along with calcium and vitamin D supplements. Her next bone density scan is scheduled for May 2024. 6. Branch Retinal Vein Occlusion The patient will continue to follow up with ophthalmology. 7. Xerosis Cutis (Dry Skin) The wound on her buttock does not appear infected. Recommended applying antibiotic ointment to the area to prevent infection and to help it heal. The patient was strongly encouraged to use lotion regularly to manage her dry skin and prevent itching and scratching. 8. Memory Impairment The patient continues to take donepezil. A discussion was held with the patient and her daughter regarding the patient's increasing forgetfulness and its impact on her safety and ability to care for herself. The progressive nature of memory loss and the potential future need for a higher level of care were reviewed. 9. Wellness And Preventative Care An order will be placed for fasting blood work. The patient will receive an influenza vaccine today. The patient has a follow-up appointment with her assistant women's rowing coach in May. A rectal exam was performed and was negative for occult blood. Discussion Notes I discussed the patient's elevated blood pressure reading in the office, noting it was on the borderline of being high at 140. I explained that this could be due to an in-office elevation and recommended she monitor her blood pressure at home two to three times a week to get a clearer picture of her baseline readings. We will defer any medication changes until we can review these home readings. I addressed the patient's dry skin and the cut on her buttock, which is not infected. I advised applying antibiotic ointment to the cut and urged her to use lotion daily to manage the dryness and associated itching. A significant portion of the visit was spent discussing the patient's increasing forgetfulness with her and her daughter. I acknowledged the impact this is having on her medication adherence and self-care, as well as the progressive nature of her condition. We reviewed future care steps, including the possibility of her moving in with her daughter as her needs increase. I recommended the patient get her annual flu shot, explaining its importance for her health, and she agreed to receive it today. I also informed them that the in-office rectal exam was negative for any signs of blood. Refills were discussed, and I advised that the pharmacy can send requests as needed. Patient Instructions - Check your blood pressure at home 2-3 times a week. Before you check it, sit down and rest for 3 to 5 minutes. If the top number is 140 or higher most of the time, we need to know. - Put antibiotic ointment on the cut on your skin to keep it from getting infected. - Use lotion on your skin every day. This will help with the dryness and stop the itching. - Continue taking all your current medications as they are prescribed. These include medicines for your bones (alendronate), blood pressure (metoprolol), cholesterol (pravastatin), and mind (donepezil). - You will be given a flu shot today. - Please go to the lab to get your fasting blood work done. - Continue to follow your diet and try to exercise and move more. - Keep your appointment with your lung doctor in May. Orders: Orders 2 Influenza [id number] Immunization Today Z23 - Encounter for immunization Medications: New 2 bacitracin zinc (Antibiotic (bacitracin zinc)) 1 appl topical TID 14 grams 0RF 7 days
[2025-05-06 12:55] VITALS: BP 140/70
--- OUTSIDE RECORDS SUMMARY | 2025-05-06 23:27 | XMS_ITS | Patient Health Record ---
[facility] Address [address] [place] [address] Care Team Providers Care Ice Maker Name Role Phone Elliott Howell Primary Care Provider Alex Castillo Unavailable [phone] Allergies No Known Allergies Reason For Referral No Information Medications Medication SIG (Take, Route, Frequency, Duration) Notes Start Date End Date Status Vitamin D3 1.25 MG (58210 UT) 1 capsule Orally; Duration: 30 day(s) [...] atherosclerosis of arteries of lower limbs (disorder) ([id number] ) Atherosclerosis of [place] artery of both lower extremities, with unspecified presence of clinical manifestation (I70.203) Active confirmed Vital Signs Blood pressure diastolic 68 mm Hg 11/17/2024 Height 5 ft 4 in in 11/17/2024 Blood pressure systolic 126 mm Hg 11/17/2024 Weight 180 lbs 11/17/2024 BMI 30.89 kg/m2 11/17/2024 Procedures Procedure Date Ordered Date Performed Result Body Sit e [id number]-[id number] NAIL, 1-5 11/17/2024 N/A 37981-OSDF SKIN LESIONS, OVER 4 11/17/2024 N/A [id number] DYSTROPHIC NAILS ANY # 11/17/2024 N/A Encounters Encounter Location Date Provider Diagnosis [facility] [place] [address] [place] [id number] 11/17/2024 Alex Antonio Atherosclerosis of [place] artery of both lower extremities, with unspecified presence of clinical manifestation I70.203 ; Tinea unguium B35.1 ; Pain in right toe(s) M79.674 and Pain in left toe(s) M79.675 Assessments Encounter Date Diagnosis (ICD Code) Assessment Notes Treatment Notes Treatment Clinical Notes Section Notes 11/17/2024 Tinea unguium (ICD-10 - B35.1) 11/17/2024 Atherosclerosis of [place] artery of both lower extremities, with unspecified presence of clinical manifestation (ICD-10 - I70.203) 11/17/2024 Pain in right toe(s) (ICD-10 - M79.674) 11/17/2024 Pain in left toe(s) (ICD-10 - M79.675) Plan Of Treatment Pending Test Test Name Order Date [id number] NAIL, 1-04/11/2022 [id number] NAIL, -07/28/2022 [id number] NAIL, -04/30/2023 18431-RURRHJO NAIL, 1-01/22/2024 74201-[id number] NAIL, 1-11/17/2024 36586-RRLX SKIN LESIONS, OVER 4 11/18/19 25 82648-FTLX SKIN LESIONS, OVER 4 01/22/20 24 54181-EINQ SKIN LESIONS, OVER 4 04/30/20 23 44475-AOLO SKIN LESIONS, OVER 4 07/28/19 23 01319-REYU SKIN LESIONS, 2 TO 4 04/11/20 22 [id number] DYSTROPHIC NAILS ANY # L8063-JPYTFIHU DYSTROPHIC NAILS ANY # N9114-PCXDAHXB DYSTROPHIC NAILS ANY # B4503-BLFFFXHX DYSTROPHIC NAILS ANY # F3826-DXKEXHRT DYSTROPHIC NAILS ANY # Insurance Providers Payer Name Payer Address Payer Phone Subscriber Number Group Number Insured Name Patient Relationship to Insured Coverage Start Date Coverage End Date [employer] [address] [place] [phone] [id number] Elisa Falcon Self - patient is the insured Medical (General) History Medical History History ICD Code Alzheimers disease Arthritis Back pain Dementia Gout High blood pressure Osteoporosis CAD Surgical History Surgery Date(Month/Year) Hospitalization History Reason Date(Month/Year) Years a go can't remember
--- OUTSIDE RECORDS SUMMARY | 2025-05-06 23:28 | XMS_ITS | Patient Health Record ---
Author Organization [facility] Address [address] [place] [id number] Care Team Providers Care Communications Supervisor Name Role Phone Kale Sifuentes Jr Reason For Referral No Information Plan Of Treatment No Information
== END 2025-05-06 13:24 | disposition home or self-care (01) ==
LOC: HO.HMCH 12:21
PROVIDERS: PCP Internal Medicine; Visit Provider Internal Medicine
DX: Z00.00 Encounter for general adult medical examination without abnormal findings (principal); I10 Essential (primary) hypertension; E78.00 Pure hypercholesterolemia, unspecified; R73.02 Impaired glucose tolerance (oral); E21.3 Hyperparathyroidism, unspecified; E66.9 Obesity, unspecified; H34.8312 Tributary (branch) retinal vein occlusion, right eye, stable; J45.20 Mild intermittent asthma, uncomplicated; M85.80 Other specified disorders of bone density and structure, unspecified site; Z23 Encounter for immunization

== ENCOUNTER → 2025-05-06 12:20 | Outpatient (BNVA) | payer MEDICARE, SELFPAY | PROVIDERS: PCP Internal Medicine; Visit Provider Internal Medicine | DX: Z00.00 Encounter for general adult medical examination without abnormal findings (principal); Z23 Encounter for immunization; I10 Essential (primary) hypertension; E78.00 Pure hypercholesterolemia, unspecified; R73.02 Impaired glucose tolerance (oral); E21.3 Hyperparathyroidism, unspecified; E66.9 Obesity, unspecified; H34.8312 Tributary (branch) retinal vein occlusion, right eye, stable; J45.20 Mild intermittent asthma, uncomplicated; M85.80 Other specified disorders of bone density and structure, unspecified site | CPT/HCPCS: 90471; 90656; 99397 ==

== ENCOUNTER 2025-05-19 11:11 | Outpatient (AMB) | payer MEDICARE, MEDICAID, SELFPAY ==
[2025-05-19 11:22] VITALS: BP 172/80; PULSE 63; O2SAT 99; BMI 38.5
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
[2025-05-19 11:41] VITALS: BP 156/80
== END 2025-05-19 13:12 | disposition home or self-care (01) ==
PROVIDERS: PCP Internal Medicine; Visit Provider Hospitalist
DX: R06.00 Dyspnea, unspecified (principal); J45.20 Mild intermittent asthma, uncomplicated; J98.4 Other disorders of lung; R91.8 Other nonspecific abnormal finding of lung field; Z23 Encounter for immunization
CPT/HCPCS: 99214

== ENCOUNTER → 2025-05-19 11:11 | Outpatient (BNVA) | payer MEDICARE, SELFPAY | PROVIDERS: PCP Internal Medicine; Visit Provider Hospitalist | DX: J45.20 Mild intermittent asthma, uncomplicated (principal); R06.00 Dyspnea, unspecified; J98.4 Other disorders of lung; R91.8 Other nonspecific abnormal finding of lung field; Z23 Encounter for immunization | CPT/HCPCS: 90471; 90684; 99212 ==

== ENCOUNTER 2025-06-04 15:15 | Outpatient (AMB) | payer MEDICARE, MEDICAID, SELFPAY ==
--- NOTE | 2025-06-04 15:26 | MHC.PC.OV ---
Vital Signs 06/04/25 15:27 Height 4 ft 11 in Weight 187 lb BMI 37.8 BP 180/70 H Blood Pressure Location Lt brachial Position Sitting Respiration 18 Pulse 52 Pulse Source Pulse Oximeter Temp 97.0 F Temp Source Temporal Artery Scan Pulse Oximetry (%) 97 Oxygen Delivery Method Room Air Intake Visit Reasons: right arm/shoulder pain Histopathologist Required: No Accompanied by: Self / Same As Patient Allergies pollen extracts Allergy (Mild, Verified 06/04/25 15:26) Sneezing amlodipine Allergy (Unknown, Verified 06/04/25 15:26) Unknown house dust Allergy (Unknown, Verified 06/04/25 15:26) Unknown losartan Allergy (Unknown, Verified 06/04/25 15:26) Unknown hydrochlorothiazide Adverse Reaction (Intermediate, Verified 06/04/25 15:26) hyponatremia lisinopril Adverse Reaction (Intermediate, Verified 06/04/25 15:26) cough prednisone Adverse Reaction (Intermediate, Verified 06/04/25 15:26) swelling LE shrimp Allergy (Mild, Uncoded 05/06/25 12:41) Swelling sunscreen Allergy (Mild, Uncoded 05/06/25 12:41) Rash Medication List - Last Reconciled 06/04/25 by Kimberly Cuenca MD acetaminophen 500 mg PO TID PRN albuterol sulfate 90 mcg/actuation (Ventolin HFA) 2 puffs inhalation Q6H PRN alendronate 70 mg PO QWEEK 90 days bacitracin zinc (Antibiotic (bacitracin zinc)) 1 appl topical TID 7 days blood pressure monitor As directed cane As directed celecoxib 100 mg PO BID 5 days cholecalciferol (vitamin D3) 1,250 mcg PO QWEEK 90 days compress.stocking,knee,reg,lrg As directed diclofenac sodium 1% (Voltaren Arthritis Pain) 4 grams topical QID donepezil 5 mg PO BEDTIME hydralazine 10 mg PO QID 4 days hydralazine 25 mg PO QID 30 days hydrocortisone 1% (Cortisone (hydrocortisone)) 1 appl topical BID PRN metoprolol succinate ER 25 mg PO DAILY nystatin 1 appl topical BID pravastatin 20 mg PO DAILY [rollator walker with a seat As directed] Shower Chair with back umeclidinium-vilanterol 62.5-25 mcg/actuation (Anoro Ellipta) 1 inh inhalation DAILY Tobacco use date assessed: 04/06/25 Fall risk assessment: No Falls in past year Last assessed Fall Risk: 06/04/25 Dental Screening Dental Screen Date: 04/06/25 HPI HPI Comments History of Present Illness Details The patient is an 84 year old female presenting with right shoulder and arm pain. The pain began approximately one month ago with no inciting trauma, fall, or heavy lifting. The pain is exacerbated by moving the arm and by lying on her right side. The patient reports no alleviating factors and has not taken any medication for this pain, though she uses diclofenac gel for knee pain. The patient has a significant history of uncontrolled hypertension, with a reading of 180/70 mmHg in clinic. Home blood pressure readings have also been elevated, in the 160s/70s-90s. Her heart rate runs in the 50s. She has a history of intolerance to multiple antihypertensive medications, including lisinopril (cough), hydrochlorothiazide, losartan, and amlodipine. Currently on metoprolol succinate 25 mg. Denies any chest pain, shortness of breath or palpitations. [facility] Medical History Pulmonary nodules Dyspnea Pulmonary scarring Rib pain on right side Lower extremity edema Right flank pain Swelling of lower leg Non-toxic multinodular goiter Osteoporosis Hyperparathyroidism Meningioma UTI (urinary tract infection) Confusion Impaired glucose tolerance Thyroid nodule Hypertension Asthma Obesity (BMI 30-39.9) Hypercholesterolemia Periorbital cellulitis of left eye Surgical History History of cholecystectomy History of thyroid surgery Family History Father CVD (cardiovascular disease) Myocardial infarction Mother Diabetes Vaginal cancer Sister Diabetes Son In good health Daughter In good health Daughter In good health Social History Housing: Apartment Alcohol intake: never Patient Tobacco Use Status: Never used Tobacco Tobacco use type: Cigarette e-Cigarette/Vaping Use: Never Used Second Hand Smoke Exposure: No service: No Current occupational status: retired Cognitive needs: Yes (walker/cane) Hearing needs: No Vision needs: Yes (reading glasses) Questionnaire Thrive Questionnaire Date Thrive assessed: 10/21/24 I am a: Patient What is your living situation today?: I have a steady place to live Within the past 12 months, did the food you bought not last and you didn't have the money to get more?: Never true Within the past 12 months, did you worry whether your food would run out before you got money to buy more?: Never true Do you have trouble paying for medicines?: No Do you have trouble getting transportation to medical appointments?: No Do you have trouble paying your heating and electricity bill?: No Do you have trouble taking care of your child, family member or friend?: No Do you have trouble with day-to-day activities such as bathing, preparing meals, shopping, managing finances, etc.?: Yes Are you currently unemployed and looking for a job?: No Are you interested in more education?: No Currently or been in a relationship where the following occur: No concerns reported THRIVE Score: 0 LISANDRO-7 AMB Questionnaire LISANDRO-7 Date LISANDRO - 7 assessed: 10/23/24 Source: Developed by Drs. Reed Park, Gifty Youngblood, Emre Vickers and colleagues, with an educational grace from [employer]. Physical exam (Primary Care) Vital Signs: Last Vital Signs Temp 97.0 F 06/04/25 15:27 Pulse 52 06/04/25 15:27 Resp 18 06/04/25 15:27 BP 180/70 H 06/04/25 15:27 Pulse Ox 97 06/04/25 15:27 Oxygen Delivery Method Room Air 06/04/25 15:27 General: Well-appearing, alert, oriented ?3, in no acute distress. Cardiovascular: RRR, S1-S2 appreciated, no murmurs, rubs or gallops. Respiratory: Lungs clear to auscultation bilaterally, no wheezes, rales or rhonchi. Abdomen: Soft, nontender, nondistended. Normoactive bowel sounds. Shoulder exam: Right shoulder range of motion limited due to pain. Positive empty can test. Sensation intact. Strength affected due to pain. BMI result Body Mass Index 37.8 Tobacco/Smoking Status: Tobacco use Status Tobacco use date assessed 04/06/25 06/04/25 15:28 Patient Tobacco Use Status Never used Tobacco 06/04/25 15:28 Tobacco use type Cigarette 06/04/25 15:28 e-Cigarette/Vaping Use Never Used 06/04/25 15:28 Thrive Assessment: Date of Thrive Assessment Date Thrive assessed 10/21/24 06/04/25 15:28 Currently or been in a relationship where the following occur: No concerns reported Coding Level of Care Code Est Pt Level 4 (91243) Diagnoses Essential hypertension I10 Hypertension type: essential hypertension Right shoulder pain, unspecified chronicity M25.511 Chronicity: unspecified Assessment & Plan Assessment & Plan (1) Hypertension: Code(s): I10 - Essential (primary) hypertension Category: Medical Qualifiers: Hypertension type: essential hypertension Qualified Code(s): I10 - Essential (primary) hypertension Plan: Patient blood pressure is severely 180/70 today, with a reports a blood pressure readings elevated at home in the 160s/70s to 90s. Patient has multiple drug intolerance. Her heart rate runs in the 50s. She has a history of intolerance to multiple antihypertensive medications, including lisinopril (cough), hydrochlorothiazide, losartan, and amlodipine. Currently on metoprolol succinate 25 mg. Denies any chest pain, shortness of breath or palpitations. Plan - test for aldosterone/renin ratio - start hydralazine, regimen as follows: Take hydralazine 10 mg, four times a day for 4 days. Then increase to 25 mg tablets, four time a day. - follow up with Dr. Howell as scheduled (2) Right shoulder pain: Code(s): M25.511 - Pain in right shoulder Qualifiers: Chronicity: unspecified Qualified Code(s): M25.511 - Pain in right shoulder Plan: Patient presenting with right shoulder and arm pain for one month ago with no inciting trauma, fall, or heavy lifting. The pain is exacerbated by moving the arm and by lying on her right side. The patient reports no alleviating factors and has not taken any medication for this pain. Reports has meloxicam at home that she used previously. But has not used it recently. Plan - obtain x-ray of right shoulder - start celecoxib 100 mg twice daily for 5 days. Stop meloxicam, avoid taking other NSAIDs like ibuprofen, naproxen, indomethacin or meloxicam while on celecoxib due to increased risk of GI issues and kidney injury. After completion of celecoxib course. Patient may use Tylenol 500 mg 1-2 tablets 3 times a day as needed for pain. - physical therapy referral also provided Orders: Orders XR shoulder RT min 2V Today M25.511 - Pain in right shoulder PT Evaluation and Treatment Today M25.511 - Pain in right shoulder Aldost/Renin Today I10 - Essential (primary) hypertension Renin Today I10 - Essential (primary) hypertension Aldosterone Today I10 - Essential (primary) hypertension Medications: New acetaminophen 500 mg PO TID PRN 60 caps 0RF fever blood pressure monitor As directed 1 ea 0RF hydralazine 10 mg PO QID 16 tabs 0RF 4 days celecoxib 100 mg PO BID 10 caps 0RF 5 days hydralazine 25 mg PO QID 120 tabs 1RF 30 days Discontinued meloxicam Discontinued Reason: Doctor's Order 7.5 mg PO DAILY PRN 30 tabs 0RF pain M54.50 - Low back pain, unspecified Patient Instructions: Take celecoxib 100 mg twice a day for 5 days. take medication with food and glass of water. Avoid mixing it with meloxicam, ibuprofen or naproxen. After that, you may use tylenol 1-2 tablets three times a day as needed for pain For high blood pressure medication: Take hydralazine 10 mg, four times a day for 4 days. Then increase to 25 mg tablets, four time a day.
[2025-06-04 15:27] VITALS: BP 180/70; PULSE 52; RESP 18; TEMP 36.1; O2SAT 97; BMI 37.8
--- OUTSIDE RECORDS SUMMARY | 2025-06-04 19:14 | XMS_ITS | Patient Health Record ---
[facility] Address [address] [facility] [place] [address] Care Team Providers Care Seed Tester Name Role Phone Elliott Howell Primary Care Provider Alex Castillo Unavailable [phone] Allergies No Known Allergies Reason For Referral No Information Medications Medication SIG (Take, Route, Frequency, Duration) Notes Start Date End Date Status Vitamin D3 1.25 MG (99905 UT) 1 capsule Orally; Duration: 30 day(s) [...] atherosclerosis of arteries of lower limbs (disorder) (81013556228938873 ) Atherosclerosis of [place] artery of both lower extremities, with unspecified presence of clinical manifestation (I70.203) Active confirmed Vital Signs Blood pressure diastolic 68 mm Hg 11/17/2024 Height 5 ft 4 in in 11/17/2024 Blood pressure systolic 126 mm Hg 11/17/2024 Weight 180 lbs 11/17/2024 BMI 30.89 kg/m2 11/17/2024 Procedures Procedure Date Ordered Date Performed Result Body Sit e 68885-VPUGRBK NAIL, 1-5 11/17/2024 N/A 30078-KETM SKIN LESIONS, OVER 4 11/17/2024 N/A K4287-VFMYJZCH DYSTROPHIC NAILS ANY # 11/17/2024 N/A Encounters Encounter Location Date Provider Diagnosis [facility] [place] [address] [place] [id number] 11/17/2024 Alex Antonio Atherosclerosis of [place] artery of both lower extremities, with unspecified presence of clinical manifestation I70.203 ; Tinea unguium B35.1 ; Pain in right toe(s) M79.674 and Pain in left toe(s) M79.675 Assessments Encounter Date Diagnosis (ICD Code) Assessment Notes Treatment Notes Treatment Clinical Notes Section Notes 11/17/2024 Tinea unguium (ICD-10 - B35.1) 11/17/2024 Atherosclerosis of [place] artery of both lower extremities, with unspecified presence of clinical manifestation (ICD-10 - I70.203) 11/17/2024 Pain in right toe(s) (ICD-10 - M79.674) 11/17/2024 Pain in left toe(s) (ICD-10 - M79.675) Plan Of Treatment Pending Test Test Name Order Date 97780-UVANJMN NAIL, 1-04/11/2022 31166-EEVAAHE NAIL, -07/28/2022 65599-ZAYNDMD NAIL, -04/30/2023 06206-GYNKEOT NAIL, 1-01/22/2024 37194-IIHBORP NAIL, 1-11/17/2024 34001-NPOR SKIN LESIONS, OVER 4 11/18/19 25 65934-UTTY SKIN LESIONS, OVER 4 01/22/20 24 63343-VQUJ SKIN LESIONS, OVER 4 04/30/20 23 89864-WIBO SKIN LESIONS, OVER 4 07/28/19 23 72391-YCDT SKIN LESIONS, 2 TO 4 04/11/20 22 O2447-SAURXIYA DYSTROPHIC NAILS ANY # Q1168-SJZOAEIR DYSTROPHIC NAILS ANY # J7026-YVIMKSNE DYSTROPHIC NAILS ANY # R0647-AQHSILTY DYSTROPHIC NAILS ANY # G8682-ZYQIFPRF DYSTROPHIC NAILS ANY # Insurance Providers Payer Name Payer Address Payer Phone Subscriber Number Group Number Insured Name Patient Relationship to Insured Coverage Start Date Coverage End Date [employer] [address] [place] [phone] [id number] Elisa Falcon Self - patient is the insured Medical (General) History Medical History History ICD Code Alzheimers disease Arthritis Back pain Dementia Gout High blood pressure Osteoporosis CAD Surgical History Surgery Date(Month/Year) Hospitalization History Reason Date(Month/Year) Years a go can't remember
--- OUTSIDE RECORDS SUMMARY | 2025-06-04 19:14 | XMS_ITS | Patient Health Record ---
Author Organization [facility] Address [address] [place] [id number] Care Team Providers Care Calendering Machine Operator Name Role Phone Kale Sifuentes Jr [phone] Reason For Referral No Information Plan Of Treatment No Information
== END 2025-06-04 16:23 | disposition home or self-care (01) ==
LOC: HO.HMCH 15:16
PROVIDERS: PCP Internal Medicine; Visit Provider Student in an Organized Health Care Education/Training Program
DX: I10 Essential (primary) hypertension (principal); M25.511 Pain in right shoulder

== ENCOUNTER 2025-06-04 15:15 | Outpatient (REF) | payer MEDICARE, MEDICAID, SELFPAY ==
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
== END 2025-06-04 15:16 | disposition home or self-care (01) ==
LOC: HO.XRAY 15:15
PROVIDERS: PCP Internal Medicine; Visit Provider Student in an Organized Health Care Education/Training Program
DX: M25.511 Pain in right shoulder (principal); I10 Essential (primary) hypertension
CPT/HCPCS: 73030; 99212

== ENCOUNTER → 2025-06-04 16:38 | Outpatient (BNV) | payer MEDICARE, MEDICAID, SELFPAY | PROVIDERS: PCP Internal Medicine; Visit Provider Radiology Diagnostic Radiology | DX: M75.121 Complete rotator cuff tear or rupture of right shoulder, not specified as traumatic (principal); M19.011 Primary osteoarthritis, right shoulder; M75.41 Impingement syndrome of right shoulder | CPT/HCPCS: 73030 ==

== ENCOUNTER 2025-06-16 09:21 | Outpatient (REF) | payer MEDICARE, MEDICAID, SELFPAY ==
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
--- OUTSIDE RECORDS SUMMARY | 2025-06-16 11:53 | XMS_ITS | Patient Health Record ---
Author Organization [facility] Address [address] [place] [phone] Care Team Providers Care Category Development Analyst Name Role Phone Kale Sifuentes Jr Reason For Referral No Information Plan Of Treatment No Information
--- OUTSIDE RECORDS SUMMARY | 2025-06-16 11:53 | XMS_ITS | Patient Health Record ---
[facility] Address [address] [facility] [address] Care Team Providers Care Helper Steel Fabrication Name Role Phone Elliott Howell Primary Care Provider Alex Castillo Unavailable [phone] Allergies No Known Allergies Reason For Referral No Information Medications Medication SIG (Take, Route, Frequency, Duration) Notes Start Date End Date Status Vitamin D3 1.25 MG (67743 UT) 1 capsule Orally; Duration: 30 day(s) [...] atherosclerosis of arteries of lower limbs (disorder) (47403061954495815 ) Atherosclerosis of [place] artery of both lower extremities, with unspecified presence of clinical manifestation (I70.203) Active confirmed Vital Signs Blood pressure diastolic 68 mm Hg 11/17/2024 Height 5 ft 4 in in 11/17/2024 Blood pressure systolic 126 mm Hg 11/17/2024 Weight 180 lbs 11/17/2024 BMI 30.89 kg/m2 11/17/2024 Procedures Procedure Date Ordered Date Performed Result Body Sit e 18815-EAUUXVQ NAIL, 1-5 11/17/2024 N/A 31106-FUAY SKIN LESIONS, OVER 4 11/17/2024 N/A U7494-JLPBZNKP DYSTROPHIC NAILS ANY # 11/17/2024 N/A Encounters Encounter Location Date Provider Diagnosis [facility] [place] [address] [place] [phone] 11/17/2024 Alex Antonio Atherosclerosis of [place] artery of both lower extremities, with unspecified presence of clinical manifestation I70.203 ; Tinea unguium B35.1 ; Pain in right toe(s) M79.674 and Pain in left toe(s) M79.675 Assessments Encounter Date Diagnosis (ICD Code) Assessment Notes Treatment Notes Treatment Clinical Notes Section Notes 11/17/2024 Tinea unguium (ICD-10 - B35.1) 11/17/2024 Atherosclerosis of [place] artery of both lower extremities, with unspecified presence of clinical manifestation (ICD-10 - I70.203) 11/17/2024 Pain in right toe(s) (ICD-10 - M79.674) 11/17/2024 Pain in left toe(s) (ICD-10 - M79.675) Plan Of Treatment Pending Test Test Name Order Date 29509-ORDTBLX NAIL, 1-04/11/2022 85861-KXESYDL NAIL, -07/28/2022 16256-KZYCNKQ NAIL, -04/30/2023 60087-ANAZSOX NAIL, 1-01/22/2024 05977-LUGZYAB NAIL, 1-11/17/2024 70393-AFWE SKIN LESIONS, OVER 4 11/18/19 25 86619-GABW SKIN LESIONS, OVER 4 01/22/20 24 75926-DWLE SKIN LESIONS, OVER 4 04/30/20 23 76543-UCKN SKIN LESIONS, OVER 4 07/28/19 23 48963-TVSU SKIN LESIONS, 2 TO 4 04/11/20 22 D2949-UYDGCGOH DYSTROPHIC NAILS ANY # M7482-LFBHQQTT DYSTROPHIC NAILS ANY # H2321-PQOCOGJL DYSTROPHIC NAILS ANY # X7598-QSAQCWAH DYSTROPHIC NAILS ANY # W2495-KWXCOQUD DYSTROPHIC NAILS ANY # Insurance Providers Payer Name Payer Address Payer Phone Subscriber Number Group Number Insured Name Patient Relationship to Insured Coverage Start Date Coverage End Date [employer] [address] [place] [id number] [id number] Elisa Falcon Self - patient is the insured Medical (General) History Medical History History ICD Code Alzheimers disease Arthritis Back pain Dementia Gout High blood pressure Osteoporosis CAD Surgical History Surgery Date(Month/Year) Hospitalization History Reason Date(Month/Year) Years a go can't remember
== END 2025-06-16 09:22 | disposition home or self-care (01) ==
LOC: HO.XRAY 09:21
PROVIDERS: PCP Internal Medicine; Visit Provider Hospitalist
DX: R91.8 Other nonspecific abnormal finding of lung field (principal)
CPT/HCPCS: 71046

== ENCOUNTER → 2025-06-16 09:23 | Outpatient (BNV) | payer MEDICARE, MEDICAID, SELFPAY | PROVIDERS: PCP Internal Medicine; Visit Provider Radiology Diagnostic Radiology | DX: R91.8 Other nonspecific abnormal finding of lung field (principal) | CPT/HCPCS: 71046 ==